=== PATIENT | male | born 1955 | race Caucasian/White ===

== ENCOUNTER 2021-09-29 08:53 | Inpatient (IN) | payer MEDICARE, MEDICAID, SELFPAY ==
[2021-09-29] VITALS (12 sets, daily range): BP systolic 110–161; BP diastolic 81–94; PULSE 74–108; RESP 18–21; TEMP 36.7–37.7; O2SAT 82–97; BMI 31.1
--- NOTE | 2021-09-29 09:44 | ED_ITS ---
HPI - General Adult General: Chief complaint: General Medical Stated complaint: FEVER/WEAK Time Seen by Provider: 09/29/21 09:09 History of Present Illness: HPI narrative: Mr. Mendoza is a 66-year-old gentleman with significant past medical history of kidney transplant approximately 2-1/2 years ago at [facility] who currently follows with nephrology (I believe within a [facility] group) in [place]. He presents to the emergency department due to generalized symptoms. Symptoms began subacutely approximately 3 days ago. He has generalized aches, pains, fatigue, and feeling off balance. He denies falls or head strike. He initially thought that he had Covid and came here for testing of that. He denies cough though and also shortness of breath. Overall the intensity symptoms is moderate to severe. The course has been worsening. He cannot think of any other specific exacerbating relieving factors. He recently missed an appointment on Thursday because he forgot about it with his social work instructor. Review of Systems General: Reports: 10 or more systems reviewed and unremarkable except in HPI and below PFSH ED PFSH: Medical History (Updated 10/03/21 @ 00:00 by ) BPH (benign prostatic hyperplasia) CAD (coronary artery disease) Chronic steroid use COPD (chronic obstructive pulmonary disease) Diabetic neuropathy DM type 2 (diabetes mellitus, type 2) Hepatitis B Immunocompromised Surgical History (Updated 10/03/21 @ 00:00 by ) Stented coronary artery Transplanted kidney Family History Other Diabetes Social History Smoking and tobacco status: former smoker Alcohol intake: never Substance/Drug Use: former Lives independently: Yes Household members: spouse Marital status: Current occupational status: retired Physical Exam Narrative: EXAM NARRATIVE: GENERAL/CONSTITUTIONAL -somewhat ill-appearing. Eyes - PERRL, no conjunctival injection ENMT - Atraumatic external nose and ears. Moist mucous membranes NECK - supple. trachea midline CARDIOVASCULAR - tachycardic rate and regular rhythm. Peripheral pulses 2+ and equal RESPIRATORY -clear to auscultation bilaterally. No retractions or accessory muscle use. ABDOMEN/GI - mild generalized tenderness palpation without focality. No tenderness to percussion or evidence of peritonitis MSK - Extremities without obvious deformity or tenderness to palpation SKIN - Warm, Dry NEURO - alert and appropriately oriented. Moves all extremities equally. PSYCH - Appropriate mood and affect Course ED course: - Patient was seen and evaluated by me at bedside - Patient placed on cardiac monitors, IV access obtained - Initial evaluation notable for somewhat ill appearance, nontoxic. -Symptom treatment ordered though was delayed secondary to difficulty with IV access - Labs notable for leukocytosis. Metabolic panel with likely evidence of dehydration. Urinalysis concerning for urinary tract infection with 4+ bacteria, nitrite positive, and 25-40 WBCs. Antibiotics ordered - Upon serial reexamination after treatment the patient was only minimally improved - Based on patient history, evaluation, labs, and imaging as interpreted the most likely cause of the patient's condition is UTI with SIRS criteria in the context of transplanted kidney and immunosuppression - Per discussion with pharmacy picking tech in the ED patient appears to have challenges taking his medications properly though he does report compliance with his antirejection regimen - The results of ED evaluation were discussed with the patient including plan for admission due to requirement for level of care not available if discharged to prevent significant worsening/deterioration. - Hospitalist service contacted and agreed admit the patient. I ordered CT imaging at the request which was reasonable given that if patient had acute complication requiring surgical intervention he would require transfer. - Patient was admitted without further deterioration or significant events. Vital Signs: Vital signs: Vital Signs Temperature 98 F 10/02/21 13:03 Pulse Rate 78 10/02/21 13:03 Respiratory Rate 16 10/02/21 13:03 Blood Pressure 139/91 10/02/21 13:03 Pulse Oximetry 90 10/02/21 13:03 [facility] - General Adult Medical Records: Attestation: I reviewed the patient's medical records. Lab Data: Labs: Lab Results 09/29/21 09/29/21 09/29/21 10:07 10:07 11:55 WBC 13.9 10^3/uL H 10 ^3/uL (4.0-10.0) RBC 4.98 10^6/uL 10^6 /uL (4.1-5.3) Hgb 12.8 g/dL g/dL (11.7-16.6) Hct 41.9 % L % (42.0-52.0) MCV 84.1 fl fl (80-94) MCH 25.7 pg L pg (28.0-34.0) MCHC 30.5 g/dL g/dL (30.0-36.0) RDW 17.1 % H % (12.1-15.1) Plt Count 199 10^3/cmm 10^3 /cmm (130-400) MPV 11.8 fL H fL (7.4-10.4) Neut % (Auto) 89.4 % % Lymph % (Auto) 3.7 % % Robeson % (Auto) 5.9 % % Eos % (Auto) 0.1 % % Baso % (Auto) 0.3 % % Neut # (Auto) 12.39 10^3/uL H 1 0^3/uL (1.8-7.7) Lymph # (Auto) 0.5 10^3/uL L 10^ 3/uL (0.8-4.8) Robeson # (Auto) 0.8 10^3/uL 10^3/ uL (0.2-0.9) Eos # (Auto) 0.0 10^3/uL 10^3/ uL (0.0-0.8) Baso # (Auto) 0.0 10^3/uL 10^3/ uL (0.0-0.1) Nucleated RBC % (a uto) 0 % % Nucleated RBCs # 0.0 /100WBC /100W BC Sodium Potassium Chloride Carbon Dioxide Anion Gap BUN Creatinine GFR Calculation Glucose Calculated Osmolal ity Lactic Acid Calcium Total Bilirubin AST ALT Alkaline Phosphata se Total Protein Albumin Globulin Urine Color Urine Appearance Urine pH Ur Specific Gravit y Urine Protein Urine Glucose (UA) Urine Ketones Urine Blood Urine Nitrate Urine Bilirubin Urine Urobilinogen Ur Leukocyte Gretel ase Urine RBC Urine WBC Ur Squamous Epith Cells Amorphous Sediment Urine Bacteria Tacrolimus (FK 506 ) Influenza Type A A g Negative (Negative) Influenza Type B A g Negative (Negative) SARS-CoV-2 Ag (Rap id) Negative (Negative) 09/29/21 09/29/21 09/29/21 11:55 11:55 12:20 WBC RBC Hgb Hct MCV MCH MCHC RDW Plt Count MPV Neut % (Auto) Lymph % (Auto) Robeson % (Auto) Eos % (Auto) Baso % (Auto) Neut # (Auto) Lymph # (Auto) Robeson # (Auto) Eos # (Auto) Baso # (Auto) Nucleated RBC % (a uto) Nucleated RBCs # Sodium 132 mmol/L L mmol /L (136-145) Potassium 4.6 mmol/L mmol/L (3.5-5.1) Chloride 99 mmol/L mmol/L (98-107) Carbon Dioxide 21 mmol/L L mmol/ L (22-29) Anion Gap 16.6 (5-19) BUN 22 mg/dL mg/dL (8-23) Creatinine 1.1 mg/dL mg/dL (0.7-1.2) GFR Calculation 67.0 mL/min L mL/ min (90-130) Glucose 181 mg/dL H mg/dL (65-115) Calculated Osmolal ity 282 mOsm/kg L mOs m/kg (285-295) Lactic Acid Calcium 9.1 mg/dL mg/dL (8.5-10.5) Total Bilirubin 0.8 mg/dL mg/dL (0.15-1.2) AST 14 U/L U/L (0-40) ALT 8 U/L U/L (0-41) Alkaline Phosphata se 94 IU/L IU/L (40-130) Total Protein 7.1 g/dL g/dL (6.6-8.7) Albumin 3.7 g/dL g/dL (3.5-5.2) Globulin 3.4 g/dL g/dL (1.3-4.6) Urine Color Yellow (Yellow) Urine Appearance Hazy A (CLEAR) Urine pH 5 (5-7) Ur Specific Gravit y 1.015 (1.005-1.030) Urine Protein 1+ H (Negative) Urine Glucose (UA) Norm (Normal) Urine Ketones Negative (Negative) Urine Blood 2+ H (Negative) Urine Nitrate Positive H (Negative) Urine Bilirubin Neg (Negative) Urine Urobilinogen 1 mg/dL H mg/dL (Negative) Ur Leukocyte Gretel ase Negative (Negative) Urine RBC 5-10 /hpf H /hpf (0-2) Urine WBC 25-40 /hpf H /hpf (0-5) Ur Squamous Epith Cells Rare /hpf /hpf (0-5) Amorphous Sediment Not Reportable Urine Bacteria 4+ /hpf H /hpf (NONE) Tacrolimus (FK 506 ) 6.5 mcg/L mcg/L Influenza Type A A g Influenza Type B A g SARS-CoV-2 Ag (Rap id) 09/29/21 14:11 WBC RBC Hgb Hct MCV MCH MCHC RDW Plt Count MPV Neut % (Auto) Lymph % (Auto) Robeson % (Auto) Eos % (Auto) Baso % (Auto) Neut # (Auto) Lymph # (Auto) Robeson # (Auto) Eos # (Auto) Baso # (Auto) Nucleated RBC % (a uto) Nucleated RBCs # Sodium Potassium Chloride Carbon Dioxide Anion Gap BUN Creatinine GFR Calculation Glucose Calculated Osmolal ity Lactic Acid 1.7 mmol/L mmol/L (0.5-2.2) Calcium Total Bilirubin AST ALT Alkaline Phosphata se Total Protein Albumin Globulin Urine Color Urine Appearance Urine pH Ur Specific Gravit y Urine Protein Urine Glucose (UA) Urine Ketones Urine Blood Urine Nitrate Urine Bilirubin Urine Urobilinogen Ur Leukocyte Gretel ase Urine RBC Urine WBC Ur Squamous Epith Cells Amorphous Sediment Urine Bacteria Tacrolimus (FK 506 ) Influenza Type A A g Influenza Type B A g SARS-CoV-2 Ag (Rap id) Discharge Plan Discharge Patient Disposition: Placed in Observation Admit Provider: Harris Guerra Clinical Impression: Acute UTI, SIRS (systemic inflammatory response syndrome), Immunocompromised, Transplanted kidney Discharge Diet: Cardiac and Diabetic Discharge Activity: Resume usual activity Coding Level of Care Code ED Mica Washer Gluer for Alivia Abbott
[2021-09-29 10:49] LABS: Influenza A by IFA Negative (Negative); Influenza B by IFA Negative (Negative); SARS Covid-2 Antigen Negative (Negative)
--- NOTE | 2021-09-29 11:12 | PC.NURSE ---
REPORT GIVEN TO STEFAN ESTRADA ASSUMED CARE.
--- NOTE | 2021-09-29 12:00 | PC.NURSE ---
received report from SEAN Moreno. Pt needs labs and urine.
[2021-09-29 12:06] LABS: Basophils % 0.3 %; Eosinophils % 0.1 %; Hematocrit 41.9 % (42.0-52.0); Hemoglobin 12.8 g/dL (11.7-16.6); Lymphocytes # 0.5 10^3/uL (0.8-4.8); Lymphocytes % 3.7 %; Mean Corpuscular HGB Conc 30.5 g/dL (30.0-36.0); Mean Corpuscular Hemoglobin 25.7 pg (28.0-34.0); Mean Corpuscular Volume 84.1 fl (80-94); Mean Platelet Volume 11.8 fL (7.4-10.4); Monocytes # 0.8 10^3/uL (0.2-0.9); Monocytes % 5.9 %; Neutrophils # 12.39 10^3/uL (1.8-7.7); Neutrophils % 89.4 %; Nucleated Red Blood Cells % 0 %; Platelet Count 199 10^3/cmm (130-400); Red Blood Count 4.98 10^6/uL (4.1-5.3); Red Cell Distribution Width 17.1 % (12.1-15.1); White Blood Count 13.9 10^3/uL (4.0-10.0)
[2021-09-29 12:23] LABS: Alanine Aminotransferase 8 U/L (0-41); Albumin Level 3.7 g/dL (3.5-5.2); Alkaline Phosphatase 94 IU/L (40-130); Anion Gap 16.6 (5-19); Aspartate Amino Transferase 14 U/L (0-40); Blood Urea Nitrogen 22 mg/dL (8-23); Calcium 9.1 mg/dL (8.5-10.5); Carbon Dioxide 21 mmol/L (22-29); Chloride 99 mmol/L (98-107); Globulin 3.4 g/dL (1.3-4.6); Glucose 181 mg/dL (65-115); Osmolality Calculated 282 mOsm/kg (285-295); Potassium 4.6 mmol/L (3.5-5.1); Sodium 132 mmol/L (136-145); Total Bilirubin 0.8 mg/dL (0.15-1.2); Total Protein 7.1 g/dL (6.6-8.7)
[2021-09-29 12:53] LABS: Add Urine Microscopic? YES; Bilirubin Urine Neg (Negative); Blood Urine 2+ (Negative); Glucose Urine UA Norm (Normal); Ketones Urine Negative (Negative); Leukocyte Esterase Urine Negative (Negative); Nitrate Urine Positive (Negative); Protein Urine 1+ (Negative); Specific Gravity, Urine 1.015 (1.005-1.030); Urine Appearance Hazy (CLEAR); Urine Color Yellow (Yellow); Urobilinogen Urine 1 mg/dL (Negative); pH Urine 5 (5-7)
[2021-09-29 12:55] LABS: Add Urine Culture? Yes; Bacteria Urine 4+ /hpf; Squamous Epithelial Cell Urine RARE /hpf (0-5); WBC Urine 25-40 /hpf (0-5)
--- NOTE | 2021-09-29 13:00 | PC.NURSE ---
Several attempts for IV by this RN x3 RAC, LAC and R sarmad. notified Charge nurse and provider
--- NOTE | 2021-09-29 13:40 | CTR_ITS ---
PROCEDURE INFORMATION: Exam: CT Abdomen And Pelvis Without Contrast Exam date and time: 09/29/2021 1:40 PM Age: 66 years old Clinical indication: Condition or disease; Other: UTI; Prior surgery; Surgery type: Kidney transplant; Additional info: Transplanted kidney, UTI, eval pyelo features as able TECHNIQUE: Imaging protocol: Computed tomography of the abdomen and pelvis without contrast. Radiation optimization: All CT scans at this facility use at least one of these dose optimization techniques: automated exposure control; mA and/or kV adjustment per patient size (includes targeted exams where dose is matched to clinical indication); or iterative reconstruction. COMPARISON: No relevant prior studies available. RADIATION DOSE METRICS: Total DLP (mGy-cm): 1566.51 FINDINGS: Heart: Severe calcified coronary artery disease. Liver: Normal. No mass. Gallbladder and bile ducts: Normal. No calcified stones. No ductal dilation. Pancreas: Normal. No ductal dilation. Spleen: Normal. No splenomegaly. Adrenal glands: Normal. No mass. Kidneys and ureters: Small vessel arterial calcifications in the renal malaika bilaterally which are often associated with chronic renal failure. One or more focal cortical defects in the right kidney, representing sequela from previous infection or infarction. One or more focal cortical defects in the left kidney, representing sequela from previous infection or infarction. Moderate to severe bilateral renal atrophy. Right lower quadrant pelvic transplant kidney with minimal inflammation in the perirenal fat suggesting possible nephritis/pyelonephritis. Stomach and bowel: Moderate descending and/or sigmoid colon diverticulosis without diverticulitis. Appendix: Normal appendix. Intraperitoneal space: Unremarkable. No free air. No significant fluid collection. Vasculature: Calcification of the abdominal aorta and/or iliac arteries consistent with atherosclerotic vessel disease. Lymph nodes: Unremarkable. No enlarged lymph nodes. Urinary bladder: Unremarkable as visualized. Reproductive: Unremarkable as visualized. Bones/joints: Bilateral L5 pars defects. Grade 1 anterior spondylolytic spondylolisthesis of L5 on S1. Soft tissues: Unremarkable. CT/CT kidney stone 03002 IMPRESSION: Right lower quadrant pelvic transplant kidney with minimal inflammation in the perirenal fat suggesting possible nephritis/pyelonephritis.
--- NOTE | 2021-09-29 14:20 | PC.NURSE ---
Pt to CT
[2021-09-29 14:50] LABS: Lactic Sepsis W/Reflex 1.7 mmol/L (0.5-2.2)
[2021-09-29] MEDS: gabapentin 300 mg Capsule 600 MG PO ×2 (15:31→22:09)
[2021-09-29] MEDS: morphine 4 mg/mL SDV 1 mL IVP (15:31)
[2021-09-29] MEDS: ondansetron 2 mg/ML SDV 2 mL 4 MG IVP (15:31)
[2021-09-29] MEDS: cefTRIAXone 1,000 MG in sodium chloride 0.9% (plus) 50 ML 100 MG IV (15:32)
[2021-09-29] MEDS: sodium chloride 0.9% 1,000 ML 999 ML IV ×2 (15:33)
--- NOTE | 2021-09-29 15:56 | P.HP_ITS ---
Providers/Chief Complaint Primary Care Provider: Eliazar Owen DO Chief Complaint: FEVER/WEAK History of Present Illness Pleasant 66-year-old gentleman with history of ESRD, kidney transplant 2-1/2 years ago, following with transplant team at [facility] in [place], CAD status post 3 stents, COPD, DM 2, with peripheral neuropathy, hepatitis B, questionable history of hepatitis C, could not be confirmed on subsequent testing, BPH pre sents due to 3 days of malaise, generalized weakness, poor appetite, mid back pain. Previously some headache, not currently, no nausea vomiting or diarrhea. No cough or shortness of breath. In ER with leukocytosis 13.9, sinus tachycardia 90-108. UA with 5-10 RBC, 25-40 WBC, 4+ bacteria, positive nitrate. Renal protocol CT with right lower quadrant pelvic transplant kidney with minimal inflammation in perirenal fat suggestive of possible nephritis/pyelonephritis. Review of Systems Const: Reports: change in appetite and malaise; Denies: fever(s) or chills Eyes: Denies: change in vision or eye redness ENMT: Denies: throat pain, oral sores or ear or mastoid pain Card: Denies: chest pain, edema, pre-syncope or dyspnea on exertion Resp: Denies: dyspnea, productive cough, change in phlegm color or hemoptysis GI: Denies: abdominal pain, nausea, vomiting, diarrhea, constipation, hematoc hezia or melena : Denies: flank pain, difficulty urinating, urinary frequency or hematuria Musc: Denies: back pain, joint swelling or joint redness Skin/Breast: Denies: rash, sores or new lesions Neuro: Denies: headache(s), numbness in extremities, weakness in extremities, dizziness, confusion or seizure-like activity Endo: Denies: polyuria or polydipsia Magen/Lymph: Denies: easy bleeding or purpura All/Imm: Denies: urticaria, throat swelling or tongue swelling Medications/Allergies Home Medications Medication Instructions Recorded Confirmed Last Taken Type allopurinol 200 mg PO DAILY 09/29/21 09/29/21 09/29/21 History amlodipine 5 mg PO DAILY 09/29/21 09/29/21 09/29/21 History aspirin 81 mg PO DAILY 09/29/21 09/29/21 09/29/21 History atorvastatin 80 mg PO DAILY 09/29/21 09/29/21 09/29/21 History entecavir 0.5 mg PO DAILY MDD SEE PHARMACY 09/29/21 09/29/21 09/28/21 History COMMENT gabapentin 600 mg PO TID 09/29/21 09/29/21 09/29/21 History hydrocodone-acetaminophen 1 tab PO Q6H PRN 09/29/21 09/29/21 09/29/21 History insulin aspart U-100 [Novolog 18 unit SUBCUT .PER SLIDING SCALE 09/29/21 09/29/21 Unknown History Flexpen U-100 Insulin] insulin detemir U-100 [Levemir 32 unit SUBCUT BID 09/29/21 09/29/21 09/29/21 History FlexTouch U-100 Insuln] isosorbide mononitrate 60 mg PO DAILY 09/29/21 09/29/21 09/29/21 History lisinopril 5 mg PO DAILY 09/29/21 09/29/21 09/29/21 History magnesium oxide 400 mg PO BID 09/29/21 09/29/21 Unknown History metoprolol succinate 50 mg PO DAILY 09/29/21 09/29/21 09/29/21 History nitroglycerin 0.4 mg SUBLINGUAL Q5MIN PRN 09/29/21 09/29/21 Unknown History omeprazole 20 mg PO DAILY 09/29/21 09/29/21 09/29/21 History prednisone 5 mg PO DAILY 09/29/21 09/29/21 09/29/21 History tacrolimus 1 mg PO BID 09/29/21 09/29/21 09/29/21 History tamsulosin 0.4 mg PO DAILY 09/29/21 09/29/21 09/27/21 History Allergies Allergy/AdvReac Type Severity Reaction Status Date / Time cyclobenzaprine Allergy Unknown Unknown Verified 09/29/21 11:23 PFSH Acute PFSH: Medical History (Updated 09/29/21 @ 16:04 by Harris Guerra MD) BPH (benign prostatic hyperplasia) CAD (coronary artery disease) Chronic steroid use COPD (chronic obstructive pulmonary disease) Diabetic neuropathy DM type 2 (diabetes mellitus, type 2) Hepatitis B Immunocompromised Surgical History Stented coronary artery Transplanted kidney Family History Other Diabetes Social History Smoking and tobacco status: former smoker Alcohol intake: never Substance/Drug Use: former Lives independently: Yes Household members: spouse Marital status: Current occupational status: retired Vitals/I&O/Wt Last Vital Signs Temp 98.1 F 09/29/21 09:08 Pulse 89 09/29/21 15:00 Resp 18 09/29/21 15:31 BP 110/88 09/29/21 14:00 Pulse Ox 96 09/29/21 15:00 Weight last 48 hrs Weight 92.986 kg Physical Exam Const: COMMON NORMALS: no acute distress, patient oriented x3 and alert GENERAL APPEARANCE: cooperative and ill appearing ORIENTATION/CONSCIOUSNESS: Yes awake HENMT: COMMON NORMALS: oropharynx normal Neck/C-Spine: COMMON NORMALS: no JVD Resp: COMMON NORMALS: normal respiratory effort and clear to auscultation bilaterally AUSCULTATION: clear to auscultation bilaterally Cardio: COMMON NORMALS: no JVD, regular rhythm, S1 normal heart sound present, S2 normal heart sound present and No murmurs present (Cardio) RHYTHM: regular rhythm HEART SOUNDS: S1 normal heart sound present and S2 normal heart sound present GI: COMMON NORMALS: Normal to inspection, nondistended, normoactive bowel sounds present, Soft to palpation and non-tender PALPATION: Yes Soft to palpation Extremity: COMMON NORMALS: no joint enlargement and no pedal edema Neuro: COMMON NORMALS: patient oriented x3 and moves all extremities Skin: COMMON NORMALS: no rashes or lesions noted GENERAL SKIN EXAM: no rashes or lesions noted Data : 09/29/21 11:55 09/29/21 11:55 Micro: Microbiology 09/29/21 11:50 Blood Culture - Preliminary Blood SPECIMEN COLLECTED 09/29/21 11:55 Blood Culture - Preliminary Blood SPECIMEN COLLECTED A&P Assessment and plan (1) Complicated UTI (urinary tract infection): Complicated urine tract infection, pyelonephritis, nonobstructive based on CT. Follow-up urine culture. Continue to biotic. Status: Acute (2) Sepsis: With leukocytosis 13.9, sinus tachycardia 90-108. Source is urinary tract infection. Blood cultures collected. Lactic acid is normal. As above. Status: Acute (3) Transplanted kidney: Continue tacrolimus, prednisone. Continue follow-up at [facility]. Status: Acute (4) Immunocompromised: Status: Acute (5) Chronic steroid use: Prednisone 5. Increase to 10 for now. Status: Acute Attestations Medical Necessity Statement*: Admission of over 2 midnights is anticipated in a gentleman with complicated urinary tract infection, pyelonephritis, sepsis, with transplanted kidney, immunocompromise. Coding Level of Care Code Acute Wave Solder Offbearer for g Fwd Exam Comprehensive Diagnoses Complicated UTI (urinary tract infection) N39.0 Sepsis A41.9 Transplanted kidney Z94.0 Immunocompromised D84.9 Chronic steroid use
[2021-09-29 21:12] LABS: Glucose Point of Care 152 mg/dL (70-110)
[2021-09-29] MEDS: heparin 5,000 unit/mL INJ 1 mL 5000 UNIT SUBCUT (22:07)
[2021-09-29] MEDS: tacrolimus 0.5 mg Capsule 1 MG PO (22:08)
[2021-09-29] MEDS: HYDROcodone-acetaminophen 5-325 mg Tablet 1 TAB PO (22:09)
[2021-09-29 22:33] LABS: Glucose Point of Care 202 mg/dL (70-110)
[2021-09-30] VITALS (8 sets, daily range): BP systolic 95–145; BP diastolic 67–88; PULSE 77–96; RESP 16–18; TEMP 36.7–38.8; O2SAT 90–98
[2021-09-30] MEDS: heparin 5,000 unit/mL INJ 1 mL 5000 UNIT SUBCUT ×3 (03:21→20:43)
[2021-09-30] MEDS: cefTRIAXone 1,000 MG in sodium chloride 0.9% (plus) 50 ML 100 MG IV (03:22)
[2021-09-30] MEDS: acetaminophen 325 mg Tablet 650 MG PO (05:04)
[2021-09-30 05:45] LABS: Basophils % 0.5 %; Eosinophils % 0.4 %; Hematocrit 40.3 % (42.0-52.0); Hemoglobin 12.5 g/dL (11.7-16.6); Lymphocytes # 0.5 10^3/uL (0.8-4.8); Lymphocytes % 6.3 %; Mean Corpuscular Hemoglobin 26.4 pg (28.0-34.0); Mean Platelet Volume 12.4 fL (7.4-10.4); Monocytes # 0.9 10^3/uL (0.2-0.9); Monocytes % 12.2 %; Neutrophils # 5.99 10^3/uL (1.8-7.7); Neutrophils % 79.3 %; Nucleated Red Blood Cells % 0 %; Platelet Count 177 10^3/cmm (130-400); Red Blood Count 4.74 10^6/uL (4.1-5.3); Red Cell Distribution Width 17.2 % (12.1-15.1); White Blood Count 7.6 10^3/uL (4.0-10.0)
--- NOTE | 2021-09-30 05:56 | PC.NURSE ---
Patient alert and oriented times 3, resting comfortably in bed. Patient became hypoxic with oxygen saturation of 82% on room air. Placed patient on nasal cannula. Oxygen saturation 93% on 6 liters. Patient had ever of 101.9. Tylenol given and last temperature was 99.5
[2021-09-30 06:03] LABS: Alanine Aminotransferase 12 U/L (0-41); Albumin Level 3.2 g/dL (3.5-5.2); Alkaline Phosphatase 106 IU/L (40-130); Anion Gap 14.6 (5-19); Aspartate Amino Transferase 16 U/L (0-40); Blood Urea Nitrogen 19 mg/dL (8-23); Carbon Dioxide 22 mmol/L (22-29); Chloride 102 mmol/L (98-107); Globulin 3.8 g/dL (1.3-4.6); Glucose 126 mg/dL (65-115); Osmolality Calculated 282 mOsm/kg (285-295); Potassium 4.6 mmol/L (3.5-5.1); Sodium 134 mmol/L (136-145); Total Bilirubin 0.5 mg/dL (0.15-1.2)
[2021-09-30 06:39] LABS: Glucose Point of Care 124 mg/dL (70-110)
--- NOTE | 2021-09-30 06:39 | PC.NURSE ---
Updated patient's on patient condition. All questions answered.
[2021-09-30 08:41] LABS: Procalcitonin 0.45 ng/mL (0-0.5)
[2021-09-30] MEDS: allopurinol 100 mg Tablet 200 MG PO (08:45)
[2021-09-30] MEDS: atorvastatin 40 mg Tablet 80 MG PO (08:45)
[2021-09-30] MEDS: tacrolimus 0.5 mg Capsule 1 MG PO ×2 (08:45→17:37)
[2021-09-30] MEDS: gabapentin 300 mg Capsule 600 MG PO ×3 (08:45→20:43)
[2021-09-30] MEDS: isosorbide mononitrate ER 60 mg Tablet 30 MG PO (08:46)
[2021-09-30] MEDS: tamsulosin 0.4 mg Capsule PO (08:46)
[2021-09-30] MEDS: pantoprazole DR 40 mg Tablet PO (08:46)
[2021-09-30] MEDS: predniSONE 5 mg Tablet 10 MG PO (08:46)
[2021-09-30] MEDS: aspirin 81 mg Chew Tablet PO (08:46)
[2021-09-30] MEDS: metoprolol succinate ER (24 HR) 50 mg Tablet 25 MG PO (08:46)
[2021-09-30] MEDS: vancomycin 1,500 MG/300 ML PIGGYBACK 200 MG IV (08:51)
--- NOTE | 2021-09-30 09:58 | PC.CHAP ---
Pastoral Care Encounter/Spiritual Assessment Type of Contact [] Declined off track betting manager visit [] Patient/Family/Request visit [] Outpatient visit [] Follow-up visit [] Physician referral [] Code/Alert [x] Routine visit [] Staff referral [] Actively dying [] Patient sleeping [] Family support [] [] Out of room [] Palliative care [] [] Receiving care in room [] Pre-surgical visit [] Trauma [] Long length of stay [] ICU visit [] Other: Relational/Emotional Strength [x] Patient feels connected with others/family/visitors/staff [] Distress [] Loneliness/isolation [] Abandonment Spirituality of Patient [x] Person of Lauryn [x] Attends Advent of their Lauryn [] Believes in Prayer [] Reads Bible or Religion materials [] There are Spiritual issues to be addressed Pace Analyst Interventions [x] Prayer x[x] Active listening [x] Non-anxious presence [] Spiritual/emotional support [] Crisis/trauma care [] Spiritual counseling [] Bereavement support [] Provided bereavement packet [] Provided Bible/devotional materials [] Provided toy/stuffed animal, coloring book to patient or family member [] Provided Communion [] Anointing/[place] [] Salvation [x] Completed spiritual assessment [] Other: Impact on Illness or Injury [] Angry [] Fearful [] Anxious [] Often cries [] Exhaustion [] Unable to work [] Unable to attend yarsanism [] Unable to walk/stand [] Unable to read [] Unable to drive [] Unable to eat/drink [] Unable to sleep [] Unable to be with family [] Patient intubated [] Other: Summary Time spent with patient 10 min
[2021-09-30 11:40] LABS: Glucose Point of Care 153 mg/dL (70-110)
[2021-09-30] MEDS: piperacillin-tazobactam 3.375 GM in sodium chloride 0.9% (plus) 50 ML IV ×2 (11:59→18:41)
[2021-09-30] MEDS: insulin lispro 100 unit/1 mL SUBCUT ×3 (12:00→22:57)
--- NOTE | 2021-09-30 16:54 | PM.PN ---
Subjective Subjective: Interval history: Hospital course, labs appreciated. Examination patient lying comfortably in bed. Sleeping. Wakes up to physical stimulus. AOx3. Denies any nausea vomiting, headache. T-max overnight 1.9 Fahrenheit. Has remained hemodynamically stable. States his urine output has been declining over last 1 week. We discussed for possible transfer given history of renal transplant and pyelonephritis to the transplanted kidney. Patient verbalized understanding and is agreeable to transfer. Multiple facilities called including [facility], [facility], [facility], [facility], [facility]. All the facilities currently on divert. Vitals/I&O/Wt Last Vital Signs Temp 98.8 F 09/30/21 11:37 Pulse 79 09/30/21 11:37 Resp 18 09/30/21 11:37 BP 137/83 09/30/21 11:37 Pulse Ox 97 09/30/21 11:37 09/30/21 09/30/21 09/30/21 06:59 14:59 22:59 Intake Total 530 / 2580 1260 / 1260 50 / 1310 Output Total 250 / 250 Balance 280 / 2330 1260 / 1260 50 / 1310 Weight last 48 hrs Weight 92.986 kg Physical Exam Const: COMMON NORMALS: no acute distress, patient oriented x3 and alert GENERAL APPEARANCE: cooperative and ill appearing ORIENTATION/CONSCIOUSNESS: Yes awake HENMT: COMMON NORMALS: oropharynx normal Neck/C-Spine: COMMON NORMALS: no JVD Resp: COMMON NORMALS: normal respiratory effort and clear to auscultation bilaterally AUSCULTATION: clear to auscultation bilaterally Cardio: COMMON NORMALS: no JVD, regular rhythm, S1 normal heart sound present, S2 normal heart sound present and No murmurs present (Cardio) RHYTHM: regular rhythm HEART SOUNDS: S1 normal heart sound present and S2 normal heart sound present GI: COMMON NORMALS: Normal to inspection, nondistended, normoactive bowel sounds present, Soft to palpation and non-tender PALPATION: Yes Soft to palpation Extremity: COMMON NORMALS: no joint enlargement and no pedal edema Neuro: COMMON NORMALS: patient oriented x3 and moves all extremities SENSORIUM/ORIENTATION: Yes alert Skin: COMMON NORMALS: no rashes or lesions noted GENERAL SKIN EXAM: no rashes or lesions noted Data : 09/30/21 05:10 09/30/21 05:10 Micro: Microbiology 09/29/21 11:55 Blood Culture - Preliminary Blood 09/29/21 11:50 Blood Culture - Preliminary Blood NEGATIVE TO DATE 09/29/21 12:20 Urine Culture - Preliminary Urine,Clean Catch Gram Negative Rods A&P Assessment and plan (1) Complicated UTI (urinary tract infection): Complicated UTI/pyelonephritis in setting of kidney transplant. Pyonephritis of transplanted kidney. Switch antibiotics to vancomycin and Zosyn given immunocompromise status. Follow-up blood cultures. Follow-up urine culture will change antibiotics as per culture results. Status: Acute (2) Sepsis: With leukocytosis 13.9, sinus tachycardia 90-108. Source is urinary tract infection. Check procalcitonin. Status: Acute (3) Transplanted kidney: Continue tacrolimus, prednisone. Continue follow-up at [facility]. Monitor kidney functions, strict input output charting. Avoid Askew catheterization. Status: Acute (4) Immunocompromised: Status: Acute (5) Chronic steroid use: Continue home dose of prednisone 5 mg daily. Status: Acute Additional A&P Information Hypertension: Goal blood pressure 140/90 mmHg. Continue with home dose of antihypertensives . Given history of kidney transplant pyelonephritis of transplanted kidney with declining urine output over last 1 week patient is at high risk of transplant failure. Discussed the same with patient and he is agreeable for transfer to a higher center. Unfortunately no beds available. For now continue the same treatment. Tried calling patient's on phone number available in the chart. Left voice message. Full code. Protonix for PUD prophylaxis. Heparin for DVT prophylaxis. Attestations Medical Necessity Statement*: Requires further hospitalization for management of complicated UTI/pyelonephritis of transplanted kidney in setting of post renal transplant, chronic immunocompromised patient Time Spent in Patient Care: Greater than 35 minutes (>than 50% of time spent in counselling and/or direct pt care on unit). Coding Level of Care Code Acute Manager Heart Failure for Gaving Fwd Diagnoses Complicated UTI (urinary tract infection) N39.0 Sepsis A41.9 Transplanted kidney Z94.0 Immunocompromised D84.9 Chronic steroid use
[2021-09-30] MEDS: HYDROcodone-acetaminophen 5-325 mg Tablet 1 TAB PO (17:37)
[2021-09-30 21:01] LABS: Glucose Point of Care 182 mg/dL (70-110)
[2021-09-30 21:10] LABS: Glucose Point of Care 141 mg/dL (70-110)
[2021-09-30 21:14] LABS: Glucose Point of Care 132 mg/dL (70-110)
[2021-09-30 21:14] LABS: Glucose Point of Care 189 mg/dL (70-110)
[2021-10-01] VITALS: BP 110/74; PULSE 84; RESP 17; TEMP 36.8; O2SAT 92
[2021-10-01] MEDS: vancomycin 1,500 MG/300 ML PIGGYBACK 200 MG IV (02:42)
[2021-10-01 04:00] VITALS: BP 100/72; PULSE 78; RESP 17; TEMP 36.7; O2SAT 92
[2021-10-01] MEDS: piperacillin-tazobactam 3.375 GM in sodium chloride 0.9% (plus) 50 ML IV ×3 (04:23→19:56)
[2021-10-01] MEDS: heparin 5,000 unit/mL INJ 1 mL 5000 UNIT SUBCUT ×3 (04:23→19:57)
[2021-10-01 06:56] LABS: Glucose Point of Care 126 mg/dL (70-110)
[2021-10-01 07:03] LABS: Basophils % 0.7 %; Eosinophils # 0.1 10^3/uL (0.0-0.8); Eosinophils % 1.6 %; Hematocrit 41.3 % (42.0-52.0); Hemoglobin 12.6 g/dL (11.7-16.6); Lymphocytes # 0.6 10^3/uL (0.8-4.8); Lymphocytes % 10.2 %; Mean Corpuscular HGB Conc 30.5 g/dL (30.0-36.0); Mean Corpuscular Hemoglobin 25.8 pg (28.0-34.0); Mean Corpuscular Volume 84.6 fl (80-94); Monocytes # 0.9 10^3/uL (0.2-0.9); Monocytes % 16.4 %; Neutrophils # 3.89 10^3/uL (1.8-7.7); Neutrophils % 69.3 %; Nucleated Red Blood Cells % 0 %; Platelet Count 197 10^3/cmm (130-400); Red Blood Count 4.88 10^6/uL (4.1-5.3); Red Cell Distribution Width 17.2 % (12.1-15.1); White Blood Count 5.6 10^3/uL (4.0-10.0)
[2021-10-01 07:39] VITALS: BP 148/79; PULSE 74; RESP 18; TEMP 36.9; O2SAT 97
[2021-10-01] MEDS: tamsulosin 0.4 mg Capsule PO (08:12)
[2021-10-01] MEDS: allopurinol 100 mg Tablet 200 MG PO (08:12)
[2021-10-01] MEDS: metoprolol succinate ER (24 HR) 50 mg Tablet 25 MG PO (08:12)
[2021-10-01] MEDS: gabapentin 300 mg Capsule 600 MG PO ×3 (08:12→19:57)
[2021-10-01] MEDS: predniSONE 5 mg Tablet PO (08:12)
[2021-10-01] MEDS: isosorbide mononitrate ER 60 mg Tablet 30 MG PO (08:12)
[2021-10-01] MEDS: aspirin 81 mg Chew Tablet PO (08:13)
[2021-10-01] MEDS: pantoprazole DR 40 mg Tablet PO (08:13)
[2021-10-01] MEDS: atorvastatin 40 mg Tablet 80 MG PO (08:14)
[2021-10-01] MEDS: tacrolimus 0.5 mg Capsule 1 MG PO ×2 (08:16→17:11)
[2021-10-01 10:21] LABS: Alanine Aminotransferase 22 U/L (0-41); Albumin Level 3.3 g/dL (3.5-5.2); Alkaline Phosphatase 82 IU/L (40-130); Anion Gap 18.2 (5-19); Aspartate Amino Transferase 24 U/L (0-40); Blood Urea Nitrogen 22 mg/dL (8-23); Calcium 9.4 mg/dL (8.5-10.5); Carbon Dioxide 18 mmol/L (22-29); Chloride 106 mmol/L (98-107); Globulin 3.1 g/dL (1.3-4.6); Glucose 201 mg/dL (65-115); Osmolality Calculated 295 mOsm/kg (285-295); Potassium 4.2 mmol/L (3.5-5.1); Sodium 138 mmol/L (136-145); Total Bilirubin 0.3 mg/dL (0.15-1.2); Total Protein 6.4 g/dL (6.6-8.7)
[2021-10-01] MEDS: HYDROcodone-acetaminophen 5-325 mg Tablet 1 TAB PO ×2 (10:35→17:11)
[2021-10-01 10:37] VITALS: BP 143/78; PULSE 55; RESP 18; TEMP 36.9; O2SAT 90
[2021-10-01 12:11] LABS: Glucose Point of Care 209 mg/dL (70-110)
[2021-10-01] MEDS: insulin lispro 100 unit/1 mL SUBCUT (12:57)
--- NOTE | 2021-10-01 14:17 | P.CONIM_ITS ---
Providers/Reason For Consult Consulting Physician/Specialty*: nasir plaza md / telenephrology Reason for Consult*: renal transplant UTI Attending Physician: Taj Dave MD Primary Care Provider: Eliazar Owen DO History of Present Illness History of Present Illness Desmond Mendoza is a 66 year old male with history of ESRD - was on PD for 4.5 yrs. He is s/p donor kidney transplant 2-1/2 years ago, following with transplant team at [facility] in [place]- on tacrolimus and prednisone. normal renal fxn. Also h/o CAD status post 3 stents, COPD, DM 2, with peripheral neuropathy, hepatitis B, questionable history of hepatitis C, BPH. Pt was admitted on 09/29/21 w/ 3 days of malaise, generalized weakness, poor appetite, mid back pain, and dysuria. Pt was diagnosed w/ a renal transplant UTI w/ e coli. Renal protocol CT with right lower quadrant pelvic transplant kidney with minimal inflammation in perirenal fat suggestive of possible nephritis/pyelonephritis. pt is on zosyn. he feels better, WBC improvinf, renal called to consult for management of renal transplant in setting of UTI. Review of Systems General: Reports: 10 or more systems reviewed and unremarkable except in HPI and below Narrative: feels better. dec fevers. no further chills. improved appetite. no visual changes, no cp, no strong, no n/v/d//leg pain. + urinary frequency. rest of ROS x 10 is neg Meds/Allergies Home Medications and Allergies Home Medications Medication Instructions Recorded Confirmed Last Taken Type allopurinol 200 mg PO DAILY 09/29/21 09/29/21 09/29/21 History amlodipine 5 mg PO DAILY 09/29/21 09/29/21 09/29/21 History aspirin 81 mg PO DAILY 09/29/21 09/29/21 09/29/21 History atorvastatin 80 mg PO DAILY 09/29/21 09/29/21 09/29/21 History entecavir 0.5 mg PO DAILY MDD SEE PHARMACY 09/29/21 09/29/21 09/28/21 History COMMENT gabapentin 600 mg PO TID 09/29/21 09/29/21 09/29/21 History hydrocodone-acetaminophen 1 tab PO Q6H PRN 09/29/21 09/29/21 09/29/21 History insulin aspart U-100 [Novolog 18 unit SUBCUT .PER SLIDING SCALE 09/29/21 09/29/21 Unknown History Flexpen U-100 Insulin] insulin detemir U-100 [Levemir 32 unit SUBCUT BID 09/29/21 09/29/21 09/29/21 History FlexTouch U-100 Insuln] isosorbide mononitrate 60 mg PO DAILY 09/29/21 09/29/21 09/29/21 History lisinopril 5 mg PO DAILY 09/29/21 09/29/21 09/29/21 History magnesium oxide 400 mg PO BID 09/29/21 09/29/21 Unknown History metoprolol succinate 50 mg PO DAILY 09/29/21 09/29/21 09/29/21 History nitroglycerin 0.4 mg SUBLINGUAL Q5MIN PRN 09/29/21 09/29/21 Unknown History omeprazole 20 mg PO DAILY 09/29/21 09/29/21 09/29/21 History prednisone 5 mg PO DAILY 09/29/21 09/29/21 09/29/21 History tacrolimus 1 mg PO BID 09/29/21 09/29/21 09/29/21 History tamsulosin 0.4 mg PO DAILY 09/29/21 09/29/21 09/27/21 History Allergies Allergy/AdvReac Type Severity Reaction Status Date / Time cyclobenzaprine Allergy Unknown Unknown Verified 09/29/21 11:23 Current Medications Current Medications Generic Name Dose Route Start Last Admin Trade Name Freq PRN Reason Stop Dose Admin Acetaminophen 650 mg 09/29/21 20:48 09/30/21 05:04 Acetaminophen 325 Mg Tablet PO 650 mg Q6H PRN Administration Mild/Mod Pain Or Temp >/= 101 Hydrocodone Bitart/Acetaminophen 1 tab 09/29/21 20:48 10/01/21 10:35 Hydrocodone-Acetaminophen 5-325 Mg Tablet PO 1 tab Q6H PRN Administration Pain Allopurinol 200 mg 09/30/21 09:00 10/01/21 08:12 Allopurinol 100 Mg Tablet PO 200 mg DAILY RICHARD Administration Aspirin 81 mg 09/30/21 09:00 10/01/21 08:13 Aspirin 81 Mg Chew Tablet PO 81 mg DAILY RICHARD Administration Atorvastatin Calcium 80 mg 09/30/21 09:00 10/01/21 08:14 Atorvastatin 40 Mg Tablet PO 80 mg DAILY RICHARD Administration Gabapentin 600 mg 09/29/21 21:00 10/01/21 08:12 Gabapentin 300 Mg Capsule PO 600 mg TID RICHARD Administration Heparin Sodium (Porcine) 5,000 unit 09/29/21 20:48 10/01/21 12:57 Heparin 5,000 Unit/Ml Inj 1 Ml SUBCUT 5,000 unit Q8H RICHARD Administration Piperacillin Sod/Tazobactam 50 mls @ 12.5 mls/hr 09/30/21 09:00 10/01/21 12:57 Sod 3.375 gm/ Sodium Chloride IV 12.5 mls/hr Q8H RICHARD Administration Protocol Insulin Human Lispro 0 unit 09/30/21 08:00 10/01/21 12:57 Insulin Lispro 100 Unit/1 Ml SUBCUT 8 unit WM&BEDTIME RICHARD Administration Protocol Isosorbide Mononitrate 30 mg 09/30/21 09:00 10/01/21 08:12 Isosorbide Mononitrate Er 60 Mg Tablet PO 30 mg DAILY RICHARD Administration Metoprolol Succinate 25 mg 09/30/21 09:00 10/01/21 08:12 Metoprolol Succinate Er (24 Hr) 50 Mg Tablet PO 25 mg DAILY RICHARD Administration Non-Formulary Medication 0.5 mg 09/30/21 09:00 10/01/21 08:14 Entecavir PO Not Given DAILY RICHARD Pantoprazole Sodium 40 mg 09/30/21 09:00 10/01/21 08:[address] 40 Mg Tablet PO 40 mg DAILY RICHARD Administration Prednisone 5 mg 10/01/21 09:00 10/01/21 08:12 Prednisone 5 Mg Tablet PO 5 mg DAILY RICHARD Administration Tacrolimus 1 mg 09/29/21 20:48 10/01/21 08:16 Tacrolimus 0.5 Mg Capsule PO 1 mg BID RICHARD Administration Tamsulosin HCl 0.4 mg 09/30/21 09:00 10/01/21 08:12 Tamsulosin 0.4 Mg Capsule PO 0.4 mg DAILY RICHARD Administration PFSH Acute PFSH: Medical History (Updated 09/29/21 @ 16:04 by Harris Guerra MD) BPH (benign prostatic hyperplasia) CAD (coronary artery disease) Chronic steroid use COPD (chronic obstructive pulmonary disease) Diabetic neuropathy DM type 2 (diabetes mellitus, type 2) Hepatitis B Immunocompromised Surgical History Stented coronary artery Transplanted kidney Family History Other Diabetes Social History Smoking and tobacco status: former smoker Alcohol intake: never Substance/Drug Use: former Lives independently: Yes Household members: spouse Marital status: Current occupational status: retired Vitals/I&O/Wt Last Vital Signs Temp 98.4 F 10/01/21 10:37 Pulse 55 L 10/01/21 10:37 Resp 18 10/01/21 10:37 BP 143/78 10/01/21 10:37 Pulse Ox 90 10/01/21 10:37 09/30/21 10/01/21 10/01/21 22:59 06:59 14:59 Intake Total 820 / 2080 540 / 2620 520 / 520 Output Total 200 / 200 Balance 820 / 2080 340 / 2420 520 / 520 Physical Exam Narrative: EXAM NARRATIVE: obese, NARD vs noted heent- nc/at, eomi, anicteric neck supple lungs clear b/l heart reg, no rub abd soft, nt, nd, +BS ext min edema neuro- a,a, o x 3 peripheral neuropathy Data Micro: Micro: Microbiology 10/01/21 13:57 Blood Culture - Pr eliminary Blood SPECIMEN [facility] 10/01/21 13:52 Blood Culture - Pr eliminary Blood SPECIMEN [facility] 09/29/21 11:55 Blood Culture - Pr eliminary Blood Bacillus sp not b. anthracis 09/29/21 12:20 Urine Culture - Fi nal Urine,Clean Catch Escherichia col i 09/29/21 11:50 Blood Culture - Pr eliminary Blood NEGATIVE TO DONTRELL E A&P Additional A&P Information 66 yr old man 1. renal tx e coli uti- on iv abx- agree can change to po in am- cont cipro -ct scan- Right lower quadrant pelvic transplant kidney with minimal inflammation in the perirenal fat suggesting possible nephritis/pyelonephritis. 10/22 blood cx + for bacillus- likely a contaminant 2. renal tx- cr well controlled- check tacrolimus trough- cont 1 mgm po bid for now -cont pred 5 mgm po dialy 3. htn - well controlled 4. 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 Evans Consult Attestations Medical Necessity Statement: per medicine Time Spent in Patient Care: Greater than 35 minutes (>than 50% of time spent in counselling and/or direct pt care on unit) . Coding Level of Care Code Acute Environmental Issues Instructor for Alivia Abbott
--- NOTE | 2021-10-01 15:29 | P.PN_ITS ---
Subjective Subjective: Interval history: No current overnight. Has remained hemodynamically stable. Afebrile. States doing better. States urine output is improving. Denies any nausea vomiting, headache. Vitals/I&O/Wt Last Vital Signs Temp 98.4 F 10/01/21 10:37 Pulse 55 L 10/01/21 10:37 Resp 18 10/01/21 10:37 BP 143/78 10/01/21 10:37 Pulse Ox 90 10/01/21 10:37 10/01/21 10/01/21 10/01/21 06:59 14:59 22:59 Intake Total 540 / 2620 520 / 520 Output Total 200 / 200 Balance 340 / 2420 520 / 520 Physical Exam Const: COMMON NORMALS: no acute distress, patient oriented x3 and alert GENERAL APPEARANCE: cooperative and ill appearing ORIENTATION/CONSCIOUSNESS: Yes awake HENMT: COMMON NORMALS: oropharynx normal Neck/C-Spine: COMMON NORMALS: no JVD Resp: COMMON NORMALS: normal respiratory effort and clear to auscultation bilaterally AUSCULTATION: clear to auscultation bilaterally Cardio: COMMON NORMALS: no JVD, regular rhythm, S1 normal heart sound present, S2 normal heart sound present and No murmurs present (Cardio) RHYTHM: regular rhythm HEART SOUNDS: S1 normal heart sound present and S2 normal heart sound present GI: COMMON NORMALS: Normal to inspection, nondistended, normoactive bowel sounds present, Soft to palpation and non-tender PALPATION: Yes Soft to palpation Extremity: COMMON NORMALS: no joint enlargement and no pedal edema Neuro: COMMON NORMALS: patient oriented x3 and moves all extremities SENSORIUM/ORIENTATION: Yes alert Skin: COMMON NORMALS: no rashes or lesions noted GENERAL SKIN EXAM: no rashes or lesions noted Data : 10/01/21 05:18 10/01/21 09:37 Micro: Microbiology 10/01/21 13:57 Blood Culture - Preliminary Blood SPECIMEN COLLECTED 10/01/21 13:52 Blood Culture - Preliminary Blood SPECIMEN COLLECTED 09/29/21 11:55 Blood Culture - Preliminary Blood Bacillus sp not b. anthracis 09/29/21 12:20 Urine Culture - Final Urine,Clean Catch Escherichia coli 09/29/21 11:50 Blood Culture - Preliminary Blood NEGATIVE TO DATE A&P Assessment and plan (1) Complicated UTI (urinary tract infection): Complicated UTI/pyelonephritis in setting of kidney transplant. Pyonephritis of transplanted kidney. Urine cultures consistent with E. coli. Stop vancomycin. Continue with Zosyn for 1 more day. Blood cultures 1 out of 4 bottles from day 1+ for bacillus. Most likely contaminant. Given immunocompromise status will repeat blood culture. Status: Acute (2) Sepsis: Resolved Status: Acute (3) Transplanted kidney: Continue tacrolimus, prednisone. Continue follow[facility]up at [facility]. Monitor kidney functions, strict input output charting. Avoid Askew catheterization. Mild acidosis on BMP today. Will consult nephrology given history of renal transplant and declining urine output with pyelonephritis of transplanted padminin lori. Status: Acute (4) Immunocompromised: Status: Acute (5) Chronic steroid use: Continue home dose of prednisone 5 mg daily. Status: Acute Additional A&P Information Hypertension: Goal blood pressure 140/90 mmHg. Continue with home dose of antihypertensives . Given history of kidney transplant pyelonephritis of transplanted kidney with declining urine output over last 1 week patient is at high risk of transplant failure. Discussed the same with patient and he is agreeable for transfer to a higher center. Unfortunately no beds available. For now continue the same treatment. Tried calling patient's on phone number available in the chart. Left voice message. Full code. Protonix for PUD prophylaxis. Heparin for DVT prophylaxis. Discharge planning: If patient continues to do well can plan to discharge tomorrow on oral Levaquin to finish a 10-day course. Attestations Medical Necessity Statement*: Requires further hospitalization for management of sepsis secondary pyelonephritis of transplanted kidney in the setting of renal transplant Time Spent in Patient Care: Greater than 35 minutes (>than 50% of time spent in counselling and/or direct pt care on unit) . Coding Level of Care Code Acute Top Edge Beveler for Chg Fwd Diagnoses Complicated UTI (urinary tract infection) N39.0 Sepsis A41.9 Transplanted kidney Z94.0 Immunocompromised D84.9 Chronic steroid use
[2021-10-01 16:00] VITALS: BP 144/89; PULSE 80; RESP 16; TEMP 37.1; O2SAT 94
[2021-10-01 16:48] LABS: Glucose Point of Care 109 mg/dL (70-110)
[2021-10-01 18:49] LABS: Potassium, Radom Urine 18 mmol/L; Urine Creatinine 71 mg/dL (39-259); Urine Random Chloride 84 mmol/L; Urine Random Sodium 105 mmol/L
[2021-10-01 18:54] LABS: Creatinine Urine, Random 73 mg/dL (39-259); Microalbumin Random Urine 10 ug/dL (0-20)
[2021-10-01 18:56] LABS: Microalbum Creatinine Ratio Ur 137 mg/dL (0-20)
[2021-10-01 19:02] LABS: Eosinophil Urine No Eosinophils Seen
--- NOTE | 2021-10-01 19:09 | PC.NURSE ---
Report to Maria C THIBODEAUX at this time.
[2021-10-01 20:00] VITALS: BP 150/79; PULSE 83; RESP 18; TEMP 36.7; O2SAT 94
[2021-10-01 20:56] LABS: Glucose Point of Care 112 mg/dL (70-110)
[2021-10-02] VITALS: BP 142/62; PULSE 78; RESP 17; TEMP 36.7; O2SAT 93
[2021-10-02] MEDS: HYDROcodone-acetaminophen 5-325 mg Tablet 1 TAB PO (03:06)
[2021-10-02 03:53] VITALS: BP 138/59; PULSE 75; RESP 17; TEMP 36.6; O2SAT 93
[2021-10-02] MEDS: piperacillin-tazobactam 3.375 GM in sodium chloride 0.9% (plus) 50 ML IV (05:06)
[2021-10-02] MEDS: heparin 5,000 unit/mL INJ 1 mL 5000 UNIT SUBCUT (05:06)
[2021-10-02 06:22] LABS: Basophils # 0.1 10^3/uL (0.0-0.1); Basophils % 0.9 %; Eosinophils # 0.3 10^3/uL (0.0-0.8); Eosinophils % 4.8 %; Hematocrit 43.1 % (42.0-52.0); Hemoglobin 13.3 g/dL (11.7-16.6); Lymphocytes # 0.9 10^3/uL (0.8-4.8); Lymphocytes % 13.2 %; Mean Corpuscular HGB Conc 30.9 g/dL (30.0-36.0); Mean Corpuscular Hemoglobin 25.5 pg (28.0-34.0); Mean Corpuscular Volume 82.6 fl (80-94); Mean Platelet Volume 11.7 fL (7.4-10.4); Monocytes % 13.5 %; Neutrophils # 4.62 10^3/uL (1.8-7.7); Neutrophils % 65.8 %; Nucleated Red Blood Cells % 0 %; Platelet Count 214 10^3/cmm (130-400); Red Blood Count 5.22 10^6/uL (4.1-5.3)
[2021-10-02 06:40] LABS: Magnesium 1.5 mg/dL (1.7-2.3); Phosphorus 3.2 mg/dL (2.5-4.5)
[2021-10-02 06:42] LABS: Alanine Aminotransferase 25 U/L (0-41); Albumin Level 3.5 g/dL (3.5-5.2); Alkaline Phosphatase 86 IU/L (40-130); Anion Gap 20.2 (5-19); Aspartate Amino Transferase 27 U/L (0-40); Blood Urea Nitrogen 19 mg/dL (8-23); Calcium 9.5 mg/dL (8.5-10.5); Carbon Dioxide 19 mmol/L (22-29); Chloride 105 mmol/L (98-107); Globulin 3.2 g/dL (1.3-4.6); Glomerular Filtration Rate 74.8 mL/min (90-130); Glucose 64 mg/dL (65-115); Osmolality Calculated 290 mOsm/kg (285-295); Potassium 4.2 mmol/L (3.5-5.1); Sodium 140 mmol/L (136-145); Total Bilirubin 0.4 mg/dL (0.15-1.2); Total Protein 6.7 g/dL (6.6-8.7)
[2021-10-02 06:49] LABS: Glucose Point of Care 74 mg/dL (70-110)
[2021-10-02 07:12] VITALS: BP 162/97; PULSE 76; RESP 16; TEMP 36.8; O2SAT 92
[2021-10-02] MEDS: allopurinol 100 mg Tablet 200 MG PO (08:35)
[2021-10-02] MEDS: gabapentin 300 mg Capsule 600 MG PO (08:35)
[2021-10-02] MEDS: isosorbide mononitrate ER 60 mg Tablet 30 MG PO (08:35)
[2021-10-02] MEDS: aspirin 81 mg Chew Tablet PO (08:35)
[2021-10-02] MEDS: atorvastatin 40 mg Tablet 80 MG PO (08:35)
[2021-10-02] MEDS: predniSONE 5 mg Tablet PO (08:37)
[2021-10-02] MEDS: pantoprazole DR 40 mg Tablet PO (08:37)
[2021-10-02] MEDS: metoprolol succinate ER (24 HR) 50 mg Tablet 25 MG PO (08:37)
[2021-10-02] MEDS: tamsulosin 0.4 mg Capsule PO (08:38)
--- NOTE | 2021-10-02 10:24 | PC.SOCIAL ---
IMM Update Pg. 2 of IMM updated and reviewed with patient, who verbalized understanding. Copy provided.
[2021-10-02] MEDS: tacrolimus 0.5 mg Capsule 1 MG PO (10:30)
[2021-10-02 10:55] VITALS: BP 139/91; PULSE 78; RESP 16; TEMP 36.6; O2SAT 90
--- NOTE | 2021-10-02 11:03 | P.PN_ITS ---
Subjective Subjective: Interval history: Mr. Mendoza feels well today. Passing urine well although with a little more frequency. No abdominal or back pain. No dysuria. No fevers or chills. No other acute symptoms i.e. no extremity edema or other hypervolemic symptoms. Hemodynamics reviewed and are stable. Vitals/I&O/Wt Last Vital Signs Temp 98 F 10/02/21 10:55 Pulse 78 10/02/21 10:55 Resp 16 10/02/21 10:55 BP 139/91 10/02/21 10:55 Pulse Ox 90 10/02/21 10:55 10/01/21 10/02/21 10/02/21 22:59 06:59 14:59 Intake Total 280 / 800 1010 / 1810 50 / 50 Output Total 710 / 710 Balance 280 / 800 300 / 1100 50 / 50 Weight last 48 hrs Weight 93.032 kg Physical Exam Narrative: EXAM NARRATIVE: Constitutional: Awake, comfortable HEENT: Wet mucosa, no jvp, non icteric Lungs: Bilaterally clear without discernible wheeze, rales in all lung zones CVS: S1 S2, no murmurs Abdo: Soft, BS ok, no pain over the transpalnt Ext 4: Minimal edema, peripheral perfusion with no cyanosis Neurological: Grossly non-focal Data : 10/02/21 05:29 10/02/21 05:29 Micro: Microbiology 10/01/21 13:57 Blood Culture - Preliminary Blood SPECIMEN COLLECTED 10/01/21 13:52 Blood Culture - Preliminary Blood SPECIMEN COLLECTED 09/29/21 11:55 Blood Culture - Preliminary Blood Bacillus sp not b. anthracis 09/29/21 12:20 Urine Culture - Final Urine,Clean Catch Escherichia coli A&P Additional A&P Information 1. Allograft Allograft function is beautiful. 2. Immunosuppression Currently on dual immunosuppression with tacrolimus 1 mg p.o. twice daily and prednisone 5 mg. He is unsure why he is not on CellCept. I defer this to the [facility] transplant team. Tacrolimus level to be monitored as an outpatient. 3. Transplant pyelonephritis Sensitive E. coli species in the urine. Currently on antibiotics. Would recommend discharge on fluoroquinolone. 4. Disposition Okay for discharge today from my perspective with close follow-up from the outpatient transplant team. Kel Charles MD Nephrology [phone] Patient seen and examined via telemedicine, with the assistance of the bedside RN > 25 min spent in evaluation and mgmt of patient Attestations Medical Necessity Statement*: Eval for renal transplant Coding Level of Care Code Acute Silo Painter for Alivia Abbott
--- NOTE | 2021-10-02 11:49 | PM.DCS ---
Discharge Providers Date of Admission: 09/29/21 15:22 Date of Discharge: October 02, 2021 Attending Provider at Admission: Harris Guerra Attending Provider at Discharge: Taj Dave MD Primary Care Provider: Eliazar Owen DO Diagnoses at Discharge Discharge Diagnosis (1) Complicated UTI (urinary tract infection): Status: Acute (2) Sepsis: Status: Acute (3) Transplanted kidney: Status: Acute (4) Immunocompromised: Status: Acute (5) Chronic steroid use: Status: Acute Reason for Visit Reason for Visit: FEVER/WEAK Hospital Course Hospital Course Pleasant 66-year-old gentleman with history of ESRD, kidney transplant 2-1/2 years ago, following with transplant team at [facility] in [place], CAD status post 3 stents, COPD, DM 2, with peripheral neuropathy, hepatitis B, questionable history of hepatitis C, could not be confirmed on subsequent testing, BPH presents due to 3 days of malaise, generalized weakness, poor appetite, mid back pain. Infectious work-up during hospitalization was consistent with sepsis secondary to pyelonephritis/complicated UTI. He was started on broad-spectrum antibiotics secondary to his immunocompromise status. His blood cultures from day 1 came back positive for 1 out of 4 bottles bacillus which is most likely contaminant. Repeat blood cultures have remained so far negative. Urine cultures came back positive for E. coli. Antibiotics were curtailed as per the sensitivities. His hospitalization was otherwise unremarkable. He is been discharged in hemodynamically stable condition on oral Levaquin for 10 days. He is to follow-up with his primary care provider within next 1 week and with his transplant team within next 2 weeks. Physical Exam Const: COMMON NORMALS: no acute distress, patient oriented x3 and alert GENERAL APPEARANCE: cooperative and ill appearing ORIENTATION/CONSCIOUSNESS: Yes awake HENMT: COMMON NORMALS: oropharynx normal Neck/C-Spine: COMMON NORMALS: no JVD Resp: COMMON NORMALS: normal respiratory effort and clear to auscultation bilaterally AUSCULTATION: clear to auscultation bilaterally Cardio: COMMON NORMALS: no JVD, regular rhythm, S1 normal heart sound present, S2 normal heart sound present and No murmurs present (Cardio) RHYTHM: regular rhythm HEART SOUNDS: S1 normal heart sound present and S2 normal heart sound present GI: COMMON NORMALS: Normal to inspection, nondistended, normoactive bowel sounds present, Soft to palpation and non-tender PALPATION: Yes Soft to palpation Extremity: COMMON NORMALS: no joint enlargement and no pedal edema Neuro: COMMON NORMALS: patient oriented x3 and moves all extremities SENSORIUM/ORIENTATION: Yes alert Skin: COMMON NORMALS: no rashes or lesions noted GENERAL SKIN EXAM: no rashes or lesions noted Discharge Data Data Completed and Pending: Completed Studies During Hospitalization Category Date Time Status CT kidney stone [id number] Urgent Cat Scan 09/29/21 13:40 Completed Pending at discharge Category Date Time Status Blood Culture Sta t Lab 09/29/21 11:50 Results Blood Culture Sta t Lab 10/01/21 13:57 Results MRSA by PCR Routi ne Lab 10/01/21 17:32 Received Magnesium AM LABS Lab 10/03/21 04:00 Ordered Magnesium AM LABS Lab 10/04/21 04:00 Ordered Phosphorus AM LAB S Lab 10/03/21 04:00 Ordered Phosphorus AM LAB S Lab 10/04/21 04:00 Ordered Labs from last 24 hours 10/02/21 10/02/21 10/02/21 06:46 05:29 05:29 WBC 7.0 RBC 5.22 Hgb 13.3 Hct 43.1 MCV 82.6 MCH 25.5 L MCHC 30.9 RDW 17.0 H Plt Count 214 MPV 11.7 H Neut % (Auto) 65.8 Lymph % (Auto) 13.2 [place] % (Auto) 13.5 Eos % (Auto) 4.8 Baso % (Auto) 0.9 Neut # (Auto) 4.62 Lymph # (Auto) 0.9 [place] # (Auto) 1.0 H Eos # (Auto) 0.3 Baso # (Auto) 0.1 Nucleated RBC % (a uto) 0 Nucleated RBCs # 0.0 Sodium 140 Potassium 4.2 Chloride 105 Carbon Dioxide 19 L Anion Gap 20.2 H BUN 19 Creatinine 1.0 GFR Calculation 74.8 L Glucose 64 L POC Glucose 74 Calculated Osmolal ity 290 Calcium 9.5 Phosphorus Magnesium Total Bilirubin 0.4 AST 27 ALT 25 Alkaline Phosphata se 86 Total Protein 6.7 Albumin 3.5 Globulin 3.2 Ur Eosinophil Smea r Urine Eosinophils Ur Random Microalb umin Ur Random Sodium Ur Random Potassiu m Ur Random Chloride Urine Creatinine Microalb/Creat Rat io Tacrolimus (FK 506 ) 10/02/21 10/01/21 10/01/21 05:29 20:38 17:17 WBC RBC Hgb Hct MCV MCH MCHC RDW Plt Count MPV Neut % (Auto) Lymph % (Auto) [place] % (Auto) Eos % (Auto) Baso % (Auto) Neut # (Auto) Lymph # (Auto) [place] # (Auto) Eos # (Auto) Baso # (Auto) Nucleated RBC % (a uto) Nucleated RBCs # Sodium Potassium Chloride Carbon Dioxide Anion Gap BUN Creatinine GFR Calculation Glucose POC Glucose 112 H Calculated Osmolal ity Calcium Phosphorus 3.2 Magnesium 1.5 L Total Bilirubin AST ALT Alkaline Phosphata se Total Protein Albumin Globulin Ur Eosinophil Smea r Urine Eosinophils Ur Random Microalb umin Ur Random Sodium 105 Ur Random Potassiu m 18 Ur Random Chloride 84 Urine Creatinine 71 Microalb/Creat Rat io Tacrolimus (FK 506 ) 10/01/21 10/01/21 10/01/21 17:17 16:12 10:36 WBC RBC Hgb Hct MCV MCH MCHC RDW Plt Count MPV Neut % (Auto) Lymph % (Auto) [place] % (Auto) Eos % (Auto) Baso % (Auto) Neut # (Auto) Lymph # (Auto) [place] # (Auto) Eos # (Auto) Baso # (Auto) Nucleated RBC % (a uto) Nucleated RBCs # Sodium Potassium Chloride Carbon Dioxide Anion Gap BUN Creatinine GFR Calculation Glucose POC Glucose 109 209 H Calculated Osmolal ity Calcium Phosphorus Magnesium Total Bilirubin AST ALT Alkaline Phosphata se Total Protein Albumin Globulin Ur Eosinophil Smea r Not Reportable Urine Eosinophils No eosinophils se en Ur Random Microalb umin 10 Ur Random Sodium Ur Random Potassiu m Ur Random Chloride Urine Creatinine 73 Microalb/Creat Rat io 137 H Tacrolimus (FK 506 ) 09/29/21 11:55 WBC RBC Hgb Hct MCV MCH MCHC RDW Plt Count MPV Neut % (Auto) Lymph % (Auto) [place] % (Auto) Eos % (Auto) Baso % (Auto) Neut # (Auto) Lymph # (Auto) [place] # (Auto) Eos # (Auto) Baso # (Auto) Nucleated RBC % (a uto) Nucleated RBCs # Sodium Potassium Chloride Carbon Dioxide Anion Gap BUN Creatinine GFR Calculation Glucose POC Glucose Calculated Osmolal ity Calcium Phosphorus Magnesium Total Bilirubin AST ALT Alkaline Phosphata se Total Protein Albumin Globulin Ur Eosinophil Smea r Urine Eosinophils Ur Random Microalb umin Ur Random Sodium Ur Random Potassiu m Ur Random Chloride Urine Creatinine Microalb/Creat Rat io Tacrolimus (FK 506 ) 6.5 Addt'l Data from Hospital Stay: Laboratory Results WBC 7.0 10^3/uL (4.0- 10.0) 10/02/21 05:29 RBC 5.22 10^6/uL (4.1 -5.3) 10/02/21 05:29 Hgb 13.3 g/dL (11.7-1 6.6) 10/02/21 05:29 Hct 43.1 % (42.0-52.0 ) 10/02/21 05:29 MCV 82.6 fl (80-94) 10/02/21 05:29 MCH 25.5 pg (28.0-34. 0) L 10/02/21 05:29 MCHC 30.9 g/dL (30.0-3 6.0) 10/02/21 05:29 RDW 17.0 % (12.1-15.1 ) H 10/02/21 05:29 Plt Count 214 10^3/cmm (130 -400) 10/02/21 05:29 MPV 11.7 fL (7.4-10.4 ) H 10/02/21 05:29 Neut % (Auto) 65.8 % 10/02/21 05:29 Lymph % (Auto) 13.2 % 10/02/21 05:29 [place] % (Auto) 13.5 % 10/02/21 05:29 Eos % (Auto) 4.8 % 10/02/21 05:29 Baso % (Auto) 0.9 % 10/02/21 05:29 Neut # (Auto) 4.62 10^3/uL (1.8 -7.7) 10/02/21 05:29 Lymph # (Auto) 0.9 10^3/uL (0.8- 4.8) 10/02/21 05:29 [place] # (Auto) 1.0 10^3/uL (0.2- 0.9) H 10/02/21 05:29 Eos # (Auto) 0.3 10^3/uL (0.0- 0.8) 10/02/21 05:29 Baso # (Auto) 0.1 10^3/uL (0.0- 0.1) 10/02/21 05:29 Nucleated RBC % (a uto) 0 % 10/02/21 05:29 Nucleated RBCs # 0.0 /100WBC 10/02/21 05:29 Sodium 140 mmol/L (136-1 45) 10/02/21 05:29 Potassium 4.2 mmol/L (3.5-5 .1) 10/02/21 05:29 Chloride 105 mmol/L (98-10 7) 10/02/21 05:29 Carbon Dioxide 19 mmol/L (22-29) L 10/02/21 05:29 Anion Gap 20.2 (5-19) H 10/02/21 05:29 BUN 19 mg/dL (8-23) 10/02/21 05:29 Creatinine 1.0 mg/dL (0.7-1. 2) 10/02/21 05:29 GFR Calculation 74.8 mL/min (90-1 30) L 10/02/21 05:29 Glucose 64 mg/dL (65-115) L 10/02/21 05:29 POC Glucose 74 mg/dL (70-110) 10/02/21 06:46 Calculated Osmolal ity 290 mOsm/kg (285- 295) 10/02/21 05:29 Lactic Acid 1.7 mmol/L (0.5-2 .2) 09/29/21 14:11 Calcium 9.5 mg/dL (8.5-10 .5) 10/02/21 05:29 Phosphorus 3.2 mg/dL (2.5-4. 5) 10/02/21 05:29 Magnesium 1.5 mg/dL (1.7-2. 3) L 10/02/21 05:29 Total Bilirubin 0.4 mg/dL (0.15-1 .2) 10/02/21 05:29 AST 27 U/L (0-40) 10/02/21 05:29 ALT 25 U/L (0-41) 10/02/21 05:29 Alkaline Phosphata se 86 IU/L (40-130) 10/02/21 05:29 Total Protein 6.7 g/dL (6.6-8.7 ) 10/02/21 05:29 Albumin 3.5 g/dL (3.5-5.2 ) 10/02/21 05:29 Globulin 3.2 g/dL (1.3-4.6 ) 10/02/21 05:29 Procalcitonin 0.45 ng/mL (0-0.5 ) 09/30/21 05:10 Urine Color Yellow (Yellow) 09/29/21 12:20 Urine Appearance Hazy (CLEAR) A 09/29/21 12:20 Urine pH 5 (5-7) 09/29/21 12:20 Ur Specific Gravit y 1.015 (1.005-1.0 30) 09/29/21 12:20 Urine Protein 1+ (Negative) H 09/29/21 12:20 Urine Glucose (UA) Norm (Normal) 09/29/21 12:20 Urine Ketones Negative (Negati ve) 09/29/21 12:20 Urine Blood 2+ (Negative) H 09/29/21 12:20 Urine Nitrate Positive (Negati ve) H 09/29/21 12:20 Urine Bilirubin Neg (Negative) 09/29/21 12:20 Urine Urobilinogen 1 mg/dL (Negative ) H 09/29/21 12:20 Ur Leukocyte Gretel ase Negative (Negati ve) 09/29/21 12:20 Urine RBC 5-10 /hpf (0-2) H 09/29/21 12:20 Urine WBC 25-40 /hpf (0-5) H 09/29/21 12:20 Ur Eosinophil Smea r Not Reportable 10/01/21 17:17 Ur Squamous Epith Cells Rare /hpf (0-5) 09/29/21 12:20 Amorphous Sediment Not Reportable 09/29/21 12:20 Urine Bacteria 4+ /hpf (NONE) H 09/29/21 12:20 Urine Eosinophils No eosinophils se en 10/01/21 17:17 Ur Random Microalb umin 10 ug/dL (0-20) 10/01/21 17:17 Ur Random Sodium 105 mmol/L 10/01/21 17:17 Ur Random Potassiu m 18 mmol/L 10/01/21 17:17 Ur Random Chloride 84 mmol/L 10/01/21 17:17 Urine Creatinine 71 mg/dL (39-259) 10/01/21 17:17 Urine Creatinine 73 mg/dL (39-259) 10/01/21 17:17 Microalb/Creat Rat io 137 mg/dL (0-20) H 10/01/21 17:17 Tacrolimus (FK 506 ) 6.5 mcg/L 09/29/21 11:55 Influenza Type A A g Negative (Negati ve) 09/29/21 10:07 Influenza Type B A g Negative (Negati ve) 09/29/21 10:07 SARS-CoV-2 Ag (Rap id) Negative (Negati ve) 09/29/21 10:07 Impressions Abdomen/Pelvis CT 09/29/21 13:40 IMPRESSION: Right lower quadrant pelvic transplant kidney with minimal inflammation in the perirenal fat suggesting possible nephritis/pyelonephritis. Microbiology 10/01/21 13:57 Blood Blood Culture - Preliminary SPECIMEN COLLECTED 10/01/21 13:52 Blood Blood Culture - Preliminary SPECIMEN COLLECTED 09/29/21 11:55 Blood Blood Culture - Preliminary Bacillus sp not b. anthracis 09/29/21 12:20 Urine,Clean Catch Urine Culture - Final Escherichia coli 09/29/21 11:50 Blood Blood Culture - Preliminary NEGATIVE TO DATE Vitals: Last Vital Signs Temp 98 F 10/02/21 10:55 Pulse 78 10/02/21 10:55 Resp 16 10/02/21 10:55 BP 139/91 10/02/21 10:55 Pulse Ox 90 10/02/21 10:55 Discharge Plan Discharge Patient Disposition: Home Condition: Stable Prescriptions: New levofloxacin 500 mg tablet 500 mg PO Q24H 10 Days Qty: 10 RF: 0 Continued atorvastatin 80 mg tablet 80 mg PO DAILY RF: 0 gabapentin 600 mg tablet 600 mg PO TID RF: 0 metoprolol succinate 50 mg tablet extended release 24 hr 50 mg PO DAILY RF: 0 hydrocodone-acetaminophen 5-325 mg tablet 1 tab PO Q6H PRN (Reason: Pain) RF: 0 prednisone 5 mg tablet 5 mg PO DAILY RF: 0 amlodipine 5 mg tablet 5 mg PO DAILY RF: 0 allopurinol 100 mg tablet 200 mg PO DAILY RF: 0 isosorbide mononitrate 60 mg tablet extended release 24 hr 60 mg PO DAILY RF: 0 magnesium oxide 400 mg (241.3 mg magnesium) tablet 400 mg PO BID RF: 0 tamsulosin 0.4 mg capsule 0.4 mg PO DAILY RF: 0 nitroglycerin 0.4 mg tablet, sublingual 0.4 mg sublingual Q5MIN PRN (Reason: CHEST PAIN) RF: 0 omeprazole 20 mg capsule,delayed release(DR/EC) 20 mg PO DAILY RF: 0 lisinopril 5 mg tablet 5 mg PO DAILY RF: 0 tacrolimus 1 mg capsule 1 mg PO BID RF: 0 Novolog Flexpen U-100 Insulin 100 unit/mL (3 mL) insulin pen 18 unit SUBCUT .PER SLIDING SCALE RF: 0 entecavir 0.5 mg tablet 0.5 mg PO DAILY MDD SEE PHARMACY COMMENT RF: 0 Levemir FlexTouch U-100 Insuln 100 unit/mL (3 mL) insulin pen 32 unit SUBCUT BID RF: 0 aspirin 81 mg Tablet,Chewable 81 mg PO DAILY RF: 0 Discharge Orders: Discharge Order (Routine); Ordered 10/02/21 Ordered By: Taj Dave Referrals: Eliazar Owen DO [Primary Care Provider] - 7-10 days Discharge Diet: Cardiac and Diabetic Discharge Activity: Resume usual activity Patient Instructions: Opioid Safety Activity Restrictions/Additional Instructions: Please take oral Levaquin for next 10 days. Please follow-up with your primary care provider within next 7 to 10 days. Please follow-up with your transplant team within next 2 weeks. Discharge Attestations Time Spent in Discharge Care*: greater than 30 min Specific Discharge Activities: educating patient, discussing with pcp/other providers, discussing with spring encaser/social workers/dc planners, documenting/other paperwork and evaluating patient/reviewing data Status at Discharge: Cognitive status at discharge: cognitively intact, Behavioral status at discharge: cooperative, Functional status at discharge: independent ambulation Overall status at discharge: patient is back to baseline Quality Metrics Clinical Quality Measures During this hospital stay, did patient experience: None Coding Level of Care Code Acute Chg FW DC note Diagnoses Complicated UTI (urinary tract infection) N39.0 Sepsis A41.9 Transplanted kidney Z94.0 Immunocompromised D84.9 Chronic steroid use
[2021-10-02 12:02] LABS: Glucose Point of Care 169 mg/dL (70-110)
[2021-10-02 13:03] VITALS: BP 139/91; PULSE 78; RESP 16; TEMP 36.6; O2SAT 90
--- NOTE | 2021-10-02 13:04 | PC.NURSE ---
IV removed intact. Patient tolerated well. Patient is A&Ox3. Respirations even and non-labored on room air. Reviewed discharge papers with patient. Patient verbalized understanding of discharge instructions and how to take antibiotics. Patient wheel chaired to private car.
== END 2021-10-02 13:06 | disposition home or self-care (01) | DRG 872 ==
LOC: ER 15:22 → MEDSURG 20:11
PROVIDERS: Internal Medicine Nephrology; Admitting Provider Internal Medicine; Emergency Provider Emergency Medicine; PCP Family Medicine; Visit Provider Student in an Organized Health Care Education/Training Program
DX: A41.9 Sepsis, unspecified organism (principal); N39.0 Urinary tract infection, site not specified; N12 Tubulo-interstitial nephritis, not specified as acute or chronic; Z94.0 Kidney transplant status; D84.9 Immunodeficiency, unspecified; B19.10 Unspecified viral hepatitis B without hepatic coma; B96.20 Unspecified Escherichia coli [E. coli] as the cause of diseases classified elsewhere; N40.0 Benign prostatic hyperplasia without lower urinary tract symptoms; I25.10 Atherosclerotic heart disease of native coronary artery without angina pectoris; I10 Essential (primary) hypertension; J44.9 Chronic obstructive pulmonary disease, unspecified; E11.40 Type 2 diabetes mellitus with diabetic neuropathy, unspecified; Z79.52 Long term (current) use of systemic steroids; Z95.5 Presence of coronary angioplasty implant and graft; Z87.891 Personal history of nicotine dependence; Z79.4 Long term (current) use of insulin; Z79.82 Long term (current) use of aspirin
CPT/HCPCS: 36415; 36416; 74176; 80053; 80197; 81001; 82044; 82436; 82570; 82962; 83605; 83735; 84100; 84133; 84145; 84300; 85025; 85999; 87040; 87077; 87086; 87186; 87205; 87426; 87641; 87804; 96372; J0696; J1644; J1815; J2270; J2405; J2543; J3370; J7030; J7507; J7512; Q3014

== ENCOUNTER 2022-09-30 09:40 | Emergency (ER) | payer MEDICARE, MEDICAID, SELFPAY ==
--- NOTE | 2022-09-30 | USCV_ITS ---
3 Desmond Mendoza Age: 67 Gender: M : 1955 Exam Date: 09/30/2022 10:27 Ordering Phys: Nitin Calhoun MD Technologist: Oscar Santiago Exam Location: [facility] [place]_ Indication: rt arm pain and swelling PROCEDURES: Venous duplex imaging was performed in only the right upper extremity. The following venous structures were evaluated: internal jugular vein, subclavian vein, axillary vein, and brachial veins. In addition, the basilic vein, cephalic vein, radial vein, and ulnar vein. FINDINGS: No evidence of deep vein thrombosis or superficial thrombophlebitis in the right upper extremity. CONCLUSIONS No evidence of thrombus of the right upper extremity veins. D/w Dr. Calhoun 1300 on 09/30/22 Stephen Lam MD (Electronically Signed) Final Date: 30 September 2022 13:16 S
[2022-09-30 09:44] VITALS: BP 157/90; PULSE 74; RESP 16; TEMP 36.6; O2SAT 94; BMI 32.2
--- NOTE | 2022-09-30 10:00 | W.ED.EXTPRO ---
HPI - Extremity Problem General: Chief complaint: Extremity Problem,Nontraumatic Stated complaint: hip/arm pain Time Seen by Provider: 09/30/22 10:00 History of Present Illness: Mr. Mendoza is a 67-year-old gentleman with significant past medical history of diabetes, hypertension, hyperlipidemia presenting to the emergency department due to foot pain. He reports a number of month history of atraumatic foot pain which has been previously evaluated by podiatry and the patient was told that he needs insoles. However, over the past few days he has noticed a wound with some drainage on the bottom of his foot as well as increased swelling in the leg and increased pain controlled by his typical medications at home. Density symptoms is moderate at rest but becomes severe with ambulation. Denies other signs systemic illness. As a separate concern he reports sudden onset of arm tingling and a bulge as well as more prominence of veins in his right upper extremity at rest last night. No other specific changes in health, exacerbating, or alleviating factors identified. Onset (ago): day(s) Pain Consistency: constant Location: right and lower extremity Quality: aching Radiation: proximal Relieving factors: nothing Exacerbating factors: weight bearing Associated symptoms: Reports other Review of Systems General: Reports: 10 or more systems reviewed and unremarkable except in HPI and below PFSH ED PFSH: Medical History BPH (benign prostatic hyperplasia) CAD (coronary artery disease) Chronic steroid use COPD (chronic obstructive pulmonary disease) Diabetic neuropathy DM type 2 (diabetes mellitus, type 2) Hepatitis B Immunocompromised Surgical History Stented coronary artery Transplanted kidney Family History Other Diabetes Social History Smoking and tobacco status: former smoker Alcohol intake: never Lives independently: Yes Household members: spouse Marital status: Current occupational status: retired Physical Exam Const: COMMON NORMALS: alert GENERAL APPEARANCE: cooperative and well developed HENMT: COMMON NORMALS: normocephalic and atraumatic HEAD & SCALP: normocephalic and atraumatic Eye: COMMON NORMALS: conjunctivae normal CONJUNCTIVA: Yes conjunctivae normal SCLERA: sclerae normal Neck/C-Spine: COMMON NORMALS: supple GENERAL: Yes trachea midline Resp: COMMON NORMALS: normal respiratory effort EFFORT & INSPECTION: Yes able to speak in complete sentences Cardio: COMMON NORMALS: regular rate and regular rhythm RATE: regular rate RHYTHM: regular rhythm GI: COMMON NORMALS: Soft to palpation PALPATION: Yes Soft to palpation and No Tenderness to palpation present (GI) Extremity: NARRATIVE EXTREMITY EXAM: Right upper extremity CMS intact. There is a palpable cord in the AC region with associated vascular prominence of superficial veins which patient reports to be new. Right lower extremity 1+ edema to mid ankle, no significant erythema, there is a area of callus at the MTP region on the plantar aspect with a small approximately 3 mm diameter area of central eschar, no drainage or purulence. There is some increased tenderness palpation. GENERAL: Yes normal exam except as noted and No edema Neuro: COMMON NORMALS: moves all extremities SENSORIUM/ORIENTATION: Yes alert and No Orientation impaired Psych: COMMON NORMALS: mental status grossly normal and Normal thought process present THOUGHT PROCESS: Normal thought process present Course Vital Signs: Vital signs: Vital Signs Temperature 97.8 F 09/30/22 09:44 Pulse Rate 69 09/30/22 11:43 Respiratory Rate 18 09/30/22 11:36 Blood Pressure 144/65 09/30/22 11:43 Pulse Oximetry 93 09/30/22 11:43 Oxygen Delivery Me thod 09/30/22 11:43 MDM - Extremity (Nontraumatic) Medical Decision Making 67-year-old gentleman presenting with concern over foot wound and right upper extremity discomfort. Patient is nontoxic in appearance. Heart rate satisfactory and patient is nonfebrile. Labs with minimal leukocytosis, hemoglobin normal. ESR and CRP are mildly elevated. No acute electrolyte arrangement or evidence of DKA. Right upper extremity ultrasound negative for DVT. X-ray with minimal erosion of the right first toe proximal phalanx medial base and medial head of the right first metatarsal with soft tissue swelling. Podiatry consulted and performed bedside evaluation/debridement. Per evaluation patient is satisfactory for outpatient management with antibiotics. They will send antibiotics and topical treatment. Patient instructed in follow-up. Cam boot ordered. The results of ED evaluation were discussed with the patient including prescriptions and/or symptomatic cares (if applicable) including appropriate and responsible use, followup plan, and return precautions. The patient verbalized understanding and felt safe for discharge. Medical Records I reviewed the patient's medical records. Lab Data I reviewed the patient's lab results. 09/30/22 10:53 09/30/22 10:53 Radiology Impressions Foot X-Ray 09/30/22 10:16 Impression: Minimal erosion of the right first toe proximal phalanx medial base and medial head of the right first metatarsal with soft tissue swelling. Laboratory Results WBC 11.4 10^3/uL (4.0-10.0) H 09/30/22 10:53 RBC 4.57 10^6/uL (4.1-5.3) 09/30/22 10:53 Hgb 12.4 g/dL (11.7-16.6) 09/30/22 10:53 Hct 40.5 % (42.0-52.0) L 09/30/22 10:53 MCV 88.6 fl (80-94) 09/30/22 10:53 MCH 27.1 pg (28.0-34.0) L 09/30/22 10:53 MCHC 30.6 g/dL (30.0-36.0) 09/30/22 10:53 RDW 16.8 % (12.1-15.1) H 09/30/22 10:53 Plt Count 304 10^3/cmm (130-400) 09/30/22 10:53 MPV 11.4 fL (7.4-10.4) H 09/30/22 10:53 Neut % (Auto) 79.7 % 09/30/22 10:53 Lymph % (Auto) 8.9 % 09/30/22 10:53 Hitchcock % (Auto) 6.6 % 09/30/22 10:53 Eos % (Auto) 3.0 % 09/30/22 10:53 Baso % (Auto) 0.4 % 09/30/22 10:53 Neut # (Auto) 9.08 10^3/uL (1.8-7.7) H 09/30/22 10:53 Lymph # (Auto) 1.0 10^3/uL (0.8-4.8) 09/30/22 10:53 Hitchcock # (Auto) 0.8 10^3/uL (0.2-0.9) 09/30/22 10:53 Eos # (Auto) 0.3 10^3/uL (0.0-0.8) 09/30/22 10:53 Baso # (Auto) 0.1 10^3/uL (0.0-0.1) 09/30/22 10:53 Nucleated RBC % (auto) 0 % 09/30/22 10:53 Nucleated RBCs # 0.0 /100WBC 09/30/22 10:53 ESR 16 mm/hr (0-10) H 09/30/22 10:53 Sodium 138 mmol/L (136-145) 09/30/22 10:53 Potassium 4.8 mmol/L (3.5-5.1) 09/30/22 10:53 Chloride 105 mmol/L (98-107) 09/30/22 10:53 Carbon Dioxide 24 mmol/L (22-29) 09/30/22 10:53 Anion Gap 13.8 (5-19) 09/30/22 10:53 BUN 21 mg/dL (8-23) 09/30/22 10:53 Creatinine 1.1 mg/dL (0.7-1.2) 09/30/22 10:53 GFR Calculation 66.8 mL/min (90-130) L 09/30/22 10:53 Glucose 133 mg/dL (65-115) H 09/30/22 10:53 POC Glucose 129 mg/dL (70-110) H 09/30/22 10:55 Calculated Osmolality 291 mOsm/kg (285-295) 09/30/22 10:53 Calcium 9.7 mg/dL (8.5-10.5) 09/30/22 10:53 Total Bilirubin 0.4 mg/dL (0.15-1.2) 09/30/22 10:53 AST 16 U/L (0-40) 09/30/22 10:53 ALT 13 U/L (0-41) 09/30/22 10:53 Alkaline Phosphatase 121 U/L (40-130) 09/30/22 10:53 C-Reactive Protein 28.7 mg/L (0.0-4.9) H 09/30/22 10:53 Total Protein 7.2 g/dL (6.6-8.7) 12/13/22 10:53 Albumin 3.9 g/dL (3.5-5.2) 09/30/22 10:53 Globulin 3.3 g/dL (1.3-4.6) 09/30/22 10:53 Discharge Plan Discharge Patient Disposition: Home Clinical Impression: Diabetic foot ulcer Condition: Stable Prescriptions: New doxycycline hyclate 100 mg tablet 100 mg PO Q12H 14 Days Qty: 28 0RF mupirocin 2 % ointment 1 applic topical TID 14 Days Qty: 15 0RF oxycodone 5 mg tablet 5 mg PO Q4H PRN (Reason: pain) Qty: 10 0RF No Action atorvastatin 80 mg tablet 80 mg PO DAILY gabapentin 600 mg tablet 600 mg PO TID metoprolol succinate 50 mg tablet extended release 24 hr 50 mg PO DAILY hydrocodone-acetaminophen 5-325 mg tablet 1 tab PO Q6H PRN (Reason: Pain) prednisone 5 mg tablet 5 mg PO DAILY amlodipine 5 mg tablet 5 mg PO DAILY allopurinol 100 mg tablet 200 mg PO DAILY isosorbide mononitrate 60 mg tablet extended release 24 hr 60 mg PO DAILY magnesium oxide 400 mg (241.3 mg magnesium) tablet 400 mg PO BID tamsulosin 0.4 mg capsule 0.4 mg PO DAILY nitroglycerin 0.4 mg tablet, sublingual 0.4 mg sublingual Q5MIN PRN (Reason: CHEST PAIN) omeprazole 20 mg capsule,delayed release(DR/EC) 20 mg PO DAILY lisinopril 5 mg tablet 5 mg PO DAILY tacrolimus 1 mg capsule 1 mg PO BID Novolog Flexpen U-100 Insulin 100 unit/mL (3 mL) insulin pen 18 unit SUBCUT .PER SLIDING SCALE entecavir 0.5 mg tablet 0.5 mg PO DAILY MDD SEE PHARMACY COMMENT Levemir FlexTouch U-100 Insuln 100 unit/mL (3 mL) insulin pen 32 unit SUBCUT BID aspirin 81 mg Tablet,Chewable 81 mg PO DAILY Discharge Orders: Discharge ED (Routine); Ordered 09/30/22 Ordered By: Nitin Calhoun Referrals: Eliazar Owen DO [Primary Care Provider] - Discharge Diet: Usual diet Discharge Activity: Limit activity as instructed Patient Instructions: Diabetic Foot Ulcers (ED), Opioid Safety, Pain Management Activity Restrictions/Additional Instructions: Thank you for visiting the emergency department. You were seen and evaluated for foot pain. You have a diabetic foot ulcer. This was evaluated by podiatry in the emergency department. Please follow all instructions that they gave you. A follow-up appointment has been scheduled for 10/08/2022 at 930 however please call to verify this appointment time. Please use the antibiotics and topical medication as instructed. I will prescribe oxycodone for severe uncontrolled pain though I would expect this to improve with the antibiotics. Please use this cautiously and do not take it at the same time as your hydrocodone acetaminophen. Please return to the emergency department for uncontrolled symptoms, fevers, inability to tolerate oral intake, or anything else that you are concerned about a feel needs emergency department evaluation. Coding Level of Care Code ED Animal Trainer Supervisor for Alivia Abbott Exam Comprehensive
--- NOTE | 2022-09-30 10:16 | XR_ITS ---
WS: [id number] Right foot, 3 views, 09/30/2022 Clinical Data: wound plantar 1st MTP, swelling, pain Comparison: None. Findings: No fractures or dislocations are seen. There is minimal erosion of the medial aspect of the base of t he right first toe proximal phalanx and of the medial aspect of the head of the right first metatarsa l. There is minimal swelling at the right first MTP joint. No radiopaque foreign body is noted. No subcutaneous abscess is seen. There is a plantar spur and an Achilles spur. XR/XR foot RT min 3V* [id number] Impression: Minimal erosion of the right first toe proximal phalanx medial base and medial head of the right first metatarsal with soft tissue swelling.
[2022-09-30 11:03] LABS: Glucose Point of Care 129 mg/dL (70-110)
[2022-09-30 11:04] LABS: Basophils # 0.1 10^3/uL (0.0-0.1); Basophils % 0.4 %; Eosinophils # 0.3 10^3/uL (0.0-0.8); Hematocrit 40.5 % (42.0-52.0); Hemoglobin 12.4 g/dL (11.7-16.6); Lymphocytes % 8.9 %; Mean Corpuscular HGB Conc 30.6 g/dL (30.0-36.0); Mean Corpuscular Hemoglobin 27.1 pg (28.0-34.0); Mean Corpuscular Volume 88.6 fl (80-94); Mean Platelet Volume 11.4 fL (7.4-10.4); Monocytes # 0.8 10^3/uL (0.2-0.9); Monocytes % 6.6 %; Neutrophils # 9.08 10^3/uL (1.8-7.7); Neutrophils % 79.7 %; Nucleated Red Blood Cells % 0 %; Platelet Count 304 10^3/cmm (130-400); Red Blood Count 4.57 10^6/uL (4.1-5.3); Red Cell Distribution Width 16.8 % (12.1-15.1); White Blood Count 11.4 10^3/uL (4.0-10.0)
[2022-09-30 11:06] LABS: Erythrocyte Sedimentation Rate 16 mm/hr (0-10)
[2022-09-30 11:27] LABS: Alanine Aminotransferase 13 U/L (0-41); Albumin Level 3.9 g/dL (3.5-5.2); Alkaline Phosphatase 121 U/L (40-130); Anion Gap 13.8 (5-19); Aspartate Amino Transferase 16 U/L (0-40); Blood Urea Nitrogen 21 mg/dL (8-23); C Reactive Protein 28.7 mg/L (0.0-4.9); Calcium 9.7 mg/dL (8.5-10.5); Carbon Dioxide 24 mmol/L (22-29); Chloride 105 mmol/L (98-107); Globulin 3.3 g/dL (1.3-4.6); Glomerular Filtration Rate 66.8 mL/min (90-130); Glucose 133 mg/dL (65-115); Osmolality Calculated 291 mOsm/kg (285-295); Potassium 4.8 mmol/L (3.5-5.1); Sodium 138 mmol/L (136-145); Total Bilirubin 0.4 mg/dL (0.15-1.2); Total Protein 7.2 g/dL (6.6-8.7)
[2022-09-30 11:36] VITALS: RESP 18
[2022-09-30] MEDS: morphine 4 mg/mL SDV 1 mL IVP (11:36)
[2022-09-30 11:43] VITALS: BP 144/65; PULSE 69; O2SAT 93
--- NOTE | 2022-09-30 12:55 | P.CONIM_ITS ---
Providers/Reason For Consult Consulting Physician/Specialty*: Bear Barber D.P.M. Reason for Consult*: Diabetic foot ulcer right foot Primary Care Provider: Eliazar Owen DO History of Present Illness History of Present Illness Desmond Mendoza is a 67 year old diabetic male presents with a ulceration to the right forefoot. He reports a callus that developed a wound underneath over the past 2 weeks. He began feeling some pain and experiencing redness, denies any drainage. He is accompanied by his . He is a recipient of a kidney transplant. He is wishing to be very proactive in regards to his foot care and would like to avoid foot infections. Presented to the emergency department for evaluation. Patient denies any subjective nausea, vomiting, fever, chills, shortness of breath or chest pain. Review of Systems General: Reports: 10 or more systems reviewed and unremarkable except in HPI and below Const: Denies: fever(s) or chills Eyes: Denies: change in vision Card: Denies: chest pain or palpitations Resp: Denies: dyspnea or productive cough GI: Denies: abdominal pain, nausea or vomiting : Denies: flank pain Musc: Reports: extremity swelling, joint stiffness and deformity Skin/Breast: Reports: erythema, sores, changes in skin color, dry skin, nail changes and change in hair Neuro: Reports: numbness in extremities, sensory changes and difficulty walking Psych: Denies: suicidal ideation Endo: Denies: change in body appearance Magen/Lymph: Denies: tender lymph nodes Medications/Allergies Home Medications Medication Instructions Recorded Confirmed Last Taken Type allopurinol 100 mg tablet 200 mg PO DAILY 09/29/21 09/29/21 09/29/21 History amlodipine 5 mg tablet 5 mg PO DAILY 09/29/21 09/29/21 09/29/21 History aspirin 81 mg chewable tablet 81 mg PO DAILY 09/29/21 09/29/21 09/29/21 History atorvastatin 80 mg tablet 80 mg PO DAILY 09/29/21 09/29/21 09/29/21 History entecavir 0.5 mg tablet 0.5 mg PO DAILY 09/29/21 09/29/21 09/28/21 History gabapentin 600 mg tablet 600 mg PO TID 09/29/21 09/29/21 09/29/21 History hydrocodone 5 mg-acetaminophen 325 1 tab PO Q6H PRN Pain 12/12/21 12/12/21 12/12/21 History mg tablet insulin aspart U-100 100 unit/mL 18 unit SUBCUT .PER SLIDING SCALE 09/29/21 09/29/21 Unknown History (3 mL) subcutaneous pen (Novolog Flexpen U-100 Insulin aspart) insulin detemir U-100 100 unit/mL 32 unit SUBCUT BID 09/29/21 09/29/21 09/29/21 History (3 mL) subcutaneous pen (Levemir FlexTouch U-100 Insulin) isosorbide mononitrate 60 mg 60 mg PO DAILY 09/29/21 09/29/21 09/29/21 History tablet,extended release 24 hr lisinopril 5 mg tablet 5 mg PO DAILY 09/29/21 09/29/21 09/29/21 History magnesium oxide 400 mg (241.3 mg 400 mg PO BID 09/29/21 09/29/21 Unknown History magnesium) tablet metoprolol succinate 50 mg 50 mg PO DAILY 09/29/21 09/29/21 09/29/21 History tablet,extended release 24 hr nitroglycerin 0.4 mg sublingual 0.4 mg sublingual Q5MIN PRN CHEST 09/29/21 09/29/21 Unknown History tablet PAIN omeprazole 20 mg capsule,delayed 20 mg PO DAILY 09/29/21 09/29/21 09/29/21 History release prednisone 5 mg tablet 5 mg PO DAILY 09/29/21 09/29/21 09/29/21 History tacrolimus 1 mg capsule, 1 mg PO BID 09/29/21 09/29/21 09/29/21 History immediate-release tamsulosin 0.4 mg capsule 0.4 mg PO DAILY 09/29/21 09/29/21 09/27/21 History doxycycline hyclate 100 mg tablet 100 mg PO Q12H 14 days #28 tabs 09/30/22 Unknown Rx mupirocin 2 % topical ointment 1 applic topical TID 14 days #15 09/30/22 Unknown Rx grams oxycodone 5 mg tablet 5 mg PO Q4H PRN pain #10 tabs 09/30/22 Unknown Rx Allergies Allergy/AdvReac Type Severity Reaction Status Date / Time cyclobenzaprine Allergy Unknown Unknown Verified 09/29/21 11:23 PFSH Acute PFSH: Medical History BPH (benign prostatic hyperplasia) CAD (coronary artery disease) Chronic steroid use COPD (chronic obstructive pulmonary disease) Diabetic neuropathy DM type 2 (diabetes mellitus, type 2) Hepatitis B Immunocompromised Surgical History Stented coronary artery Transplanted kidney Family History Other Diabetes Social History Smoking and tobacco status: former smoker Alcohol intake: never Lives independently: Yes Household members: spouse Marital status: Current occupational status: retired Vitals/I&O/Wt Last Vital Signs Temp 97.8 F 09/30/22 09:44 Pulse 69 09/30/22 11:43 Resp 18 09/30/22 11:36 BP 144/65 09/30/22 11:43 Pulse Ox 93 09/30/22 11:43 O2 Del Method 09/30/22 11:43 Weight last 48 hrs Weight 212 lb Physical Exam Narrative: GENERAL: Patient is alert and oriented ?3 and in no acute distress. The following is a focused bilateral lower extremity exam. Patient's is present. VASCULAR: Dorsalis pedis palpable +2 left and right foot. Posterior tibial arteries palpable +2. Capillary refill time less than 3 seconds to the distal hallux bilaterally. Calf is supple and nontender proximally and distally. Pedal hair growth present bilaterally. No pedal edema. NEUROLOGICAL: Protective sensation intact 5/10 sites, tested with [place] monofilament to bilateral feet. DERMATOLOGICAL: Alberto grade 2 ulcerations of first metatarsal head of the right foot with hyperkeratotic rim, fiber granular base, no purulence, very mild periwound erythema without proximal lymphangitic streaking. Wound does not probe to bone, tunnel or undermine. No other wounds or ulcerations appreciated. Predebridement wound measurements 3 mm x 3 mm x 2 mm. MUSCULOSKELETAL: Minor tenderness to palpation at ulceration right foot. Pes planus foot type bilaterally with collapse of the medial longitudinal arch. Ankle joint dorsiflexion is 5 degrees beyond neutral bilaterally. Mild hammertoe deformities with sagittal plane dominance these are fully reducible left and right foot toes 2 through 5. Mild hallux valgus deformity fully re ducible bilaterally. Muscle strength 5 out of 5 in all 3 cardinal planes to the bilateral foot and ankle. Data 09/30/22 10:53 09/30/22 10:53 Micro: Microbiology 09/30/22 12:16 Blood Culture - Preliminary Blood SPECIMEN COLLECTED 09/30/22 12:14 Blood Culture - Preliminary Blood SPECIMEN COLLECTED A&P Assessment and plan (1) Chronic ulcer of right foot with fat layer exposed: (2) Diabetic peripheral neuropathy associated with type 2 diabetes mellitus: Plan Pleasant 67-year-old diabetic male presents with Alberto grade 2 ulceration subfirst metatarsal head right foot. X-ray right foot 3 views negative for bony destruction, soft tissue of edema or foreign body. There is arthrosis of the right first metatarsal phalangeal joint. Ulcerations of first metatarsal head of the right foot was sharply and excisionally debrided down to and including subcutaneous tissue and fat layer utilizing a sterile dermal curette. This was debrided of devitalized epidermis, devitalized dermis, devitalized subcutaneous tissue and fat layer. Also debrided of biofilm, fibrin, slough and hyperkeratosis. Posterior wound measures minutes 1.2 cm x 1.1 cm x 0.2 cm. Improved granular bleeding base. Hemostasis via manual pressure. No anesthesia was required secondary to neuropathy. Wound did not probe to bone, tunnel or undermine. No deep structures such as tendon or capsule exposed. The wound was dressed with Betadine wet-to-dry. Offloading with cam boot. Prescription for doxycycline 100 mg twice daily for 10 days sent to pharmacy of choice electronically also prescription for mupirocin ointment to be applied 3 times daily. Advised patient to keep his wound clean and dry and avoid getting wet when showering. Emphasized offloading and compliance with cam boot and overall decreasing his activities. Will follow-up in podiatry clinic 10/08/2022 at 9:30 AM. Sooner should he experience complications. Coding Level of Care Code Acute Contour Stitcher for Alivia Abbott Diagnoses Chronic ulcer of right foot with fat layer exposed L97.512 Diabetic peripheral neuropathy associated with type 2 diabetes mellitus E11.42 Comment CPT 94089
[2022-10-01 10:31] LABS: Bacillus cereus group Not Detected (NOT DETECT); Bacillus subtillis group Not Detected (NOT DETECT); Corynebacterium Not Detected (NOT DETECT); Cutibacterium acnes (P.acnes) Not Detected (NOT DETECT); Enterococcus Not Detected (NOT DETECT); Enterococcus faecalis Not Detected (NOT DETECT); Enterococcus faecium Not Detected (NOT DETECT); Lactobacillus species Not Detected (NOT DETECT); Listeria Not Detected (NOT DETECT); Listeria monocytogenes Not Detected (NOT DETECT); Micrococcus Not Detected (NOT DETECT); Pan Candida Not Detected (NOT DETECT); Pan Gram-Negative Not Detected (NOT DETECT); Staphylococcus epidermidis Not Detected (NOT DETECT); Staphylococcus lugdunensis Not Detected (NOT DETECT); Staphylococcus species Detected (NOT DETECT); Streptococcus agalactiae Not Detected (NOT DETECT); Streptococcus anginosus group Not Detected (NOT DETECT); Streptococcus pneumoniae Not Detected (NOT DETECT); Streptococcus pyogenes Not Detected (NOT DETECT); Streptococcus species Not Detected (NOT DETECT); mecA Not Detected (NOT DETECT); mecC Not Detected (NOT DETECT)
== END 2022-09-30 13:30 | disposition home or self-care (01) ==
PROVIDERS: Emergency Provider Emergency Medicine; PCP Family Medicine
DX: E11.621 Type 2 diabetes mellitus with foot ulcer (principal); L97.519 Non-pressure chronic ulcer of other part of right foot with unspecified severity; Z79.4 Long term (current) use of insulin; Z79.82 Long term (current) use of aspirin; I25.10 Atherosclerotic heart disease of native coronary artery without angina pectoris; J44.9 Chronic obstructive pulmonary disease, unspecified; Z86.19 Personal history of other infectious and parasitic diseases; Z87.891 Personal history of nicotine dependence; Z94.0 Kidney transplant status
CPT/HCPCS: 36415; 36416; 73630; 80053; 82962; 85025; 85651; 86140; 87040; 87077; 87150; 87186; 87205; 93971; 96374; 97760; 99285; J2270; L4361

== ENCOUNTER → 2022-10-08 09:17 | Outpatient (BNVA) | payer MEDICARE, MEDICAID, SELFPAY | PROVIDERS: PCP Family Medicine; Visit Provider Podiatrist Foot & Ankle Surgery | DX: E11.621 Type 2 diabetes mellitus with foot ulcer (principal); Z79.4 Long term (current) use of insulin; L97.512 Non-pressure chronic ulcer of other part of right foot with fat layer exposed; E11.42 Type 2 diabetes mellitus with diabetic polyneuropathy | CPT/HCPCS: 99214 ==

== ENCOUNTER → 2022-10-22 11:00 | Outpatient (BNVA) | payer MEDICARE, MEDICAID, SELFPAY | PROVIDERS: PCP Family Medicine; Visit Provider Podiatrist Foot & Ankle Surgery | DX: E11.621 Type 2 diabetes mellitus with foot ulcer (principal); L97.512 Non-pressure chronic ulcer of other part of right foot with fat layer exposed; Z79.4 Long term (current) use of insulin; E11.42 Type 2 diabetes mellitus with diabetic polyneuropathy | CPT/HCPCS: 99214 ==

== ENCOUNTER → 2022-10-23 15:17 | Outpatient (BNVA) | payer MEDICARE, MEDICAID, SELFPAY | PROVIDERS: PCP Family Medicine; Visit Provider Family Medicine | DX: R32 Unspecified urinary incontinence (principal) | CPT/HCPCS: 81000; 87077; 87086; 87184 ==

== ENCOUNTER → 2022-11-05 10:38 | Outpatient (BNVA) | payer MEDICARE, MEDICAID, SELFPAY | PROVIDERS: PCP Family Medicine; Visit Provider Podiatrist Foot & Ankle Surgery | DX: E11.621 Type 2 diabetes mellitus with foot ulcer (principal); Z79.4 Long term (current) use of insulin; L97.512 Non-pressure chronic ulcer of other part of right foot with fat layer exposed; E11.42 Type 2 diabetes mellitus with diabetic polyneuropathy | CPT/HCPCS: 11042 ==

== ENCOUNTER → 2022-11-20 13:23 | Outpatient (BNVA) | payer MEDICARE, MEDICAID, SELFPAY | PROVIDERS: PCP Family Medicine; Visit Provider Podiatrist Foot & Ankle Surgery | DX: E11.621 Type 2 diabetes mellitus with foot ulcer (principal); Z79.4 Long term (current) use of insulin; L97.512 Non-pressure chronic ulcer of other part of right foot with fat layer exposed; E11.42 Type 2 diabetes mellitus with diabetic polyneuropathy | CPT/HCPCS: 99214 ==

== ENCOUNTER → 2022-11-21 10:03 | Outpatient (BNVA) | payer MEDICARE, MEDICAID, SELFPAY | PROVIDERS: PCP Family Medicine; Visit Provider Emergency Medicine | DX: J02.9 Acute pharyngitis, unspecified (principal) | CPT/HCPCS: 87071; 87880 ==

== ENCOUNTER 2022-11-28 08:57 | Outpatient (CLI) | payer MEDICARE, MEDICAID, SELFPAY ==
--- NOTE | 2022-11-28 09:15 | US_ITS ---
WS: [id number] TESTICULAR ULTRASOUND HISTORY: N50.811 - Right testicular pain COMPARISON: None available. TECHNIQUE: Real-time and color Doppler imaging or utilized to perform a testicular ultrasound. Right testicle: 3.5 cm x 2.6 cm x 2.6 cm. RIGHT testicle is normal size. The inferior border of the RIGHT testicle is abnormal. The surface of the inferior testicle is heterogeneous with increased vascularity. Color Doppler is present throughout the testicle although there is mild heterogeneity. Small mildly complex hydrocele. Low level echoes are present within the hydrocele. Right epididymis: Enlarged heterogeneous epididymis with increased vascularity. The entire epididymis is enlarged but most significantly involving the tail. The epididymal tail enlarged and distorted an d displacing the inferior pole of the testicle. Scrotal wall thickening on the RIGHT. Left testicle: 4.4 cm x 3.2 cm x 2.3 cm. Normal size and echogenicity. No mass or torsion. Normal color Doppler is present throughout. Systolic and diastolic velocities are both present. No significant hydrocele. Left epididymis: Normal epididymis with no increased vascularity. US/US scrotum [id number] IMPRESSION: 1. Abnormal RIGHT testicle and epididymis. There is increased vascularity thro ughout an enlarged heterogeneous epididymis. Favor posttraumatic epididymitis a nd possible associated hemorrhage. 2. Indistinctness of the inferior wall of the RIGHT testicle with adjacent inc reased vascularity and epididymitis. Suspect there may be a small area of hemor rhage and posttraumatic changes involving the inferior pole the RIGHT testicle. 3. Small RIGHT hydrocele with low-level echoes. Probably posttraumatic and may be associated hemorrhage. 4. Mild heterogeneity throughout the testicle but no evidence for torsion at t his time. 5. Recommendation: Consider consultation with urology. Also recommend short-te scrotal ultrasound follow-up in 2-3 weeks. Notified Gita Mosher at 11/28/2022 10:07 AM.
== END 2022-11-28 08:58 | disposition home or self-care (01) ==
LOC: RAD 09:03
PROVIDERS: PCP Family Medicine; Visit Provider Emergency Medicine
DX: N50.811 Right testicular pain (principal); N43.3 Hydrocele, unspecified
CPT/HCPCS: 76870

== ENCOUNTER 2022-12-01 09:34 | Emergency (ER) | payer MEDICARE, MEDICAID, SELFPAY ==
[2022-12-01 09:50] VITALS: BP 154/83; PULSE 85; RESP 16; TEMP 36.8; O2SAT 94
--- NOTE | 2022-12-01 10:15 | ED_ITS ---
HPI - Male Genitourinary General: Chief complaint: Urogenital-Male Stated complaint: testicular pain Time Seen by Provider: 12/01/22 09:56 History of Present Illness: Patient comes in with right testicular pain. States that about 8 days ago he bent over and pinched his right testicle and the top of his surgical walking boot. States that he was seen by his physician and had an ultrasound that was done 3 days ago. States that he continues to have significant pain. Associated symptoms: Reports nausea; Deny dysuria or vomiting Review of Systems Const: Denies: fever(s) or body aches Eyes: Denies: change in vision or blurry vision ENMT: Denies: throat pain or odynophagia Card: Denies: chest pain or palpitations Resp: Denies: dyspnea or productive cough GI: Reports: nausea; Denies: abdominal pain or vomiting : Reports: testicular pain; Denies: flank pain or dysuria Musc: Denies: neck pain or back pain Skin/Breast: Denies: rash or pruritus Neuro: Denies: headache(s) or numbness in extremities Psych: Denies: anxiety or change in appetite Endo: Denies: polyuria or excessive sweating PFSH ED PFSH: Medical History BPH (benign prostatic hyperplasia) CAD (coronary artery disease) Chronic steroid use COPD (chronic obstructive pulmonary disease) Diabetic neuropathy DM type 2 (diabetes mellitus, type 2) Hepatitis B Immunocompromised Surgical History Stented coronary artery Transplanted kidney Family History Other Diabetes Social History Smoking and tobacco status: former smoker Alcohol intake: never Lives independently: Yes Household members: spouse Marital status: Current occupational status: retired Physical Exam Const: COMMON NORMALS: no acute distress, patient oriented x3, healthy appearing and alert HENMT: COMMON NORMALS: normocephalic and atraumatic HEAD & SCALP: normocephalic and atraumatic Eye: COMMON NORMALS: Equal, round and reactive pupils present and EOMs intact bilaterally PUPIL: Yes Equal, round and reactive pupils present Neck/C-Spine: COMMON NORMALS: full ROM and supple Resp: COMMON NORMALS: normal respiratory effort, No retractions and No use of accessory muscles Cardio: COMMON NORMALS: regular rate and regular rhythm RATE: regular rate RHYTHM: regular rhythm GI: COMMON NORMALS: Normal to inspection, nondistended, normoactive bowel sounds present, Soft to palpation and non-tender PALPATION: Yes Soft to palpation : OTHER: right testicle feels somewhat enlarged when compared to the left however this may be the inflamed epididymis that was seen on ultrasound. He has some mild tenderness of the right testicle. Back/Pelvis: COMMON NORMALS: thoracic and lumbar spine normal to inspection and no thoracic nor lumbar tenderness Extremity: COMMON NORMALS: normal to inspection and full ROM Neuro: COMMON NORMALS: patient oriented x3 SENSORIUM/ORIENTATION: Yes alert Psych: COMMON NORMALS: mental status grossly normal and cooperative Skin: COMMON NORMALS: no rashes or lesions noted and no wounds GENERAL SKIN EXAM: no rashes or lesions noted Course Vital Signs: Vital signs: Vital Signs Temperature 98.2 F 12/01/22 09:50 Pulse Rate 85 12/01/22 09:50 Respiratory Rate 16 12/01/22 09:50 Blood Pressure 154/83 12/01/22 09:50 Pulse Oximetry 94 12/01/22 09:50 MDM - Male Medical Decision Making Patient comes in with right testicular pain. States that about 8 days ago he bent over and pinched his right testicle and the top of his surgical walking boot. States that he was seen by his physician and had an ultrasound that was done 3 days ago. States that he continues to have significant pain. On physical exam his right testicle feels somewhat enlarged when compared to the left however this may be the inflamed epididymis that was seen on ultrasound. He has some mild tenderness of the right testicle. Will consult urology, and reassess. On reassessment I talked to the patient about the ultrasound results. Dr. Zamora with urology recommend ice, coverage for possible epididymitis with antibiotics, and discharged with urology follow-up as needed. We will discharge the patient with precautions to return for worsening or changing symptoms. Discharge Plan Discharge Patient Disposition: Home Clinical Impression: Epididymitis Condition: Stable Prescriptions: New levofloxacin 250 mg tablet 250 mg PO DAILY 10 Days Qty: 10 0RF No Action amoxicillin 875 mg tablet 875 mg PO BID 10 Days Qty: 20 0RF atorvastatin 80 mg tablet 80 mg PO DAILY gabapentin 600 mg tablet 600 mg PO TID metoprolol succinate 50 mg tablet extended release 24 hr 50 mg PO DAILY hydrocodone-acetaminophen 5-325 mg tablet 1 tab PO Q6H PRN (Reason: Pain) prednisone 5 mg tablet 5 mg PO DAILY amlodipine 5 mg tablet 5 mg PO DAILY allopurinol 100 mg tablet 200 mg PO DAILY isosorbide mononitrate 60 mg tablet extended release 24 hr 60 mg PO DAILY magnesium oxide 400 mg (241.3 mg magnesium) tablet 400 mg PO BID tamsulosin 0.4 mg capsule 0.4 mg PO DAILY nitroglycerin 0.4 mg tablet, sublingual 0.4 mg sublingual Q5MIN PRN (Reason: CHEST PAIN) omeprazole 20 mg capsule,delayed release(DR/EC) 20 mg PO DAILY lisinopril 5 mg tablet 5 mg PO DAILY tacrolimus 1 mg capsule 1 mg PO BID Novolog FlexPen U-100 Insulin 100 unit/mL (3 mL) insulin pen 18 unit SUBCUT .PER SLIDING SCALE entecavir 0.5 mg tablet 0.5 mg PO DAILY MDD SEE PHARMACY COMMENT Levemir FlexTouch U-100 Insuln 100 unit/mL (3 mL) insulin pen 32 unit SUBCUT BID aspirin 81 mg Tablet,Chewable 81 mg PO DAILY Discharge Orders: Discharge ED (Routine); Ordered 12/01/22 Ordered By: Quang Brenner Referrals: Thanh Zamora MD [Physician] - Guadalupe Wick MD [Primary Care Provider] - Patient Instructions: Epididymitis Coding Level of Care Code ED Broadcast Systems Engineer for Alivia Abbott
== END 2022-12-01 10:37 | disposition home or self-care (01) ==
PROVIDERS: Emergency Provider Emergency Medicine; PCP Family Medicine
DX: N45.1 Epididymitis (principal); Z79.82 Long term (current) use of aspirin; Z79.4 Long term (current) use of insulin; I25.10 Atherosclerotic heart disease of native coronary artery without angina pectoris; J44.9 Chronic obstructive pulmonary disease, unspecified; E11.9 Type 2 diabetes mellitus without complications; Z86.19 Personal history of other infectious and parasitic diseases; Z94.0 Kidney transplant status; Z87.891 Personal history of nicotine dependence; N40.0 Benign prostatic hyperplasia without lower urinary tract symptoms
CPT/HCPCS: 99283

== ENCOUNTER → 2022-12-24 10:10 | Outpatient (BNVA) | payer MEDICARE, MEDICAID, SELFPAY | PROVIDERS: PCP Family Medicine; Visit Provider Podiatrist Foot & Ankle Surgery | DX: E11.621 Type 2 diabetes mellitus with foot ulcer (principal); L97.512 Non-pressure chronic ulcer of other part of right foot with fat layer exposed; E11.42 Type 2 diabetes mellitus with diabetic polyneuropathy; Z79.84 Long term (current) use of oral hypoglycemic drugs | CPT/HCPCS: 99214 ==

== ENCOUNTER → 2023-01-21 08:50 | Outpatient (BNVA) | payer MEDICARE, MEDICAID, SELFPAY | PROVIDERS: PCP Family Medicine; Visit Provider Podiatrist Foot & Ankle Surgery | DX: E11.42 Type 2 diabetes mellitus with diabetic polyneuropathy (principal); Z79.4 Long term (current) use of insulin; Z09 Encounter for follow-up examination after completed treatment for conditions other than malignant neoplasm | CPT/HCPCS: 99213 ==

== ENCOUNTER 2023-03-05 12:01 | Observation (INO) | payer MEDICARE, MEDICAID, SELFPAY ==
[2023-03-05] VITALS (15 sets, daily range): BP systolic 149–192; BP diastolic 70–122; PULSE 75–97; RESP 12–18; TEMP 36.5; O2SAT 90–95; BMI 34.0
--- NOTE | 2023-03-05 12:19 | ED_ITS ---
HPI - General Adult General: Chief complaint: General Medical Stated complaint: [facility] sent/arm pain/chest pressure Time Seen by Provider: 03/05/23 12:19 History of Present Illness: Mr. Mendoza is a 67-year-old gentleman with complex past medical history including renal transplant on chronic immunosuppression, CAD with history of stents presenting to the emergency department due to concern over abnormal imaging and exertional dyspnea/chest pain. He reports intermittent rare symptoms approximately 6 months ago which have been progressively worsening. He describes left arm numbness and tingling associated with chest pressure with exertion. He also has marked decrease in exertional tolerance. He had a x-ray performed for dental which noted some carotid artery calcifications and was concern over blockages. It is somewhat unclear though he does intermittently have loss of dexterity and numb feeling in his fingers however this is sometimes related more to the chest pain and he is unsure of any other strokelike symptoms. He does report that this feels similar to prior MIs. Overall course of symptoms has worsened in frequency and intensity. Intensity is moderate to s evere. No other specific changes in health, exacerbating, or alleviating factors identified. Onset (ago): month(s) Location: chest, left and upper extremity Severity: moderate Quality: aching and constant Pain Consistency: constant Relieving factors: none Exacerbating factors: other (Exertion) Associated symptoms: Reports chest pain, malaise, short of breath and other Review of Systems General: Reports: 10 or more systems reviewed and unremarkable except in HPI and below Const: Reports: malaise Card: Reports: chest pain [facility] ED PFSH: Medical History (Updated 03/05/23 @ 20:32 by Nitin Calhoun MD) BPH (benign prostatic hyperplasia) CAD (coronary artery disease) Chronic steroid use COPD (chronic obstructive pulmonary disease) Diabetic neuropathy DM type 2 (diabetes mellitus, type 2) Hepatitis B Immunocompromised Surgical History (Updated 03/05/23 @ 20:32 by Nitin Calhoun MD) Stented coronary artery Transplanted kidney Family History Other Diabetes Social History Smoking and tobacco status: former smoker Alcohol intake: never Substance/Drug Use: former Lives independently: Yes Household members: spouse Marital status: Current occupational status: retired Physical Exam Const: COMMON NORMALS: alert GENERAL APPEARANCE: cooperative and well developed HENMT: COMMON NORMALS: normocephalic and atraumatic HEAD & SCALP: normocephalic and atraumatic Eye: COMMON NORMALS: conjunctivae normal CONJUNCTIVA: Yes conjunctivae normal SCLERA: sclerae normal Neck/C-Spine: COMMON NORMALS: supple GENERAL: Yes trachea midline Resp: COMMON NORMALS: clear to auscultation bilaterally EFFORT & INSPECTION: Yes able to speak in complete sentences AUSCULTATION: clear to auscultation bilaterally Cardio: COMMON NORMALS: regular rate and regular rhythm RATE: regular rate RHYTHM: regular rhythm OTHER: 1+ symmetric bilateral radial pulses, CMS intact GI: COMMON NORMALS: Soft to palpation PALPATION: Yes Soft to palpation and No Tenderness to palpation present (GI) Extremity: GENERAL: Yes normal exam except as noted and No edema Neuro: COMMON NORMALS: moves all extremities SENSORIUM/ORIENTATION: Yes alert and No Orientation impaired Psych: COMMON NORMALS: mental status grossly normal and Normal thought process present THOUGHT PROCESS: Normal thought process present Course Vital Signs: Vital signs: Vital Signs Temperature 97.7 F 03/05/23 12:06 Pulse Rate 86 03/05/23 18:38 Respiratory Rate 17 03/05/23 18:38 Blood Pressure 155/99 03/05/23 18:38 Pulse Oximetry 94 03/05/23 16:30 Oxygen Delivery Me thod Room Air 03/05/23 18:38 MDM - General Adult Medical Decision Making 67-year-old gentleman presenting to the emergency department for concern over progressively worsening chest pain as well as abnormal imaging findings on x-ray having to do with the carotid arteries and intermittent left upper extremity tingling/weakness. No focal neurologic deficits appreciated on exam and he is nontoxic in appearance. EKG demonstrates sinus rhythm with borderline right axis deviation, normal intervals, no STEMI. Labs with no significant hematologic abnormality. Metabolic panel with preserved renal function though there is some electrolyte derangement, sodium is mildly low with a spurious component, potassium 5.5, no peaked T waves identified on chest x-ray. Negative range 2-hour delta troponin. Urinalysis concerning for urinary tract infection in the context of transplanted kidney and immunosuppression. Rocephin ordered. Additionally patient treated with IV fluids and aspirin during ED course. Chest x-ray with no lobar consolidation or pneumothorax. Most likely due cause of patient's symptoms is unclear. He is not low risk by heart score. Given electrolyte abnormalities as well as urinary tract infection patient requires inpatient observation for evaluation of both. Additionally he may require evaluation of abnormal appearance of carotid arteries with calcifications on x-ray given somewhat unclear transient neurologic symptoms. The results of ED evaluation were discussed with the patient including plan for admission due to requirement for level of care not available if discharged to prevent significant worsening/deterioration. Patient agreeable with plan. Discussed with hospitalist service who was agreeable to admit patient. Medical Records I reviewed the patient's medical records. Lab Data I reviewed the patient's lab results. 03/05/23 13:18 03/05/23 13:18 Radiology Impressions Chest X-Ray 03/05/23 12:27 Impression: Atherosclerosis. Laboratory Results WBC 8.8 10^3/uL (4.0-10.0) 03/05/23 13:18 RBC 5.43 10^6/uL (4.1-5.3) H 03/05/23 13:18 Hgb 13.4 g/dL (11.7-16.6) 03/05/23 13:18 Hct 45.5 % (42.0-52.0) 03/05/23 13:18 MCV 83.8 fl (80-94) 03/05/23 13:18 MCH 24.7 pg (28.0-34.0) L 03/05/23 13:18 MCHC 29.5 g/dL (30.0-36.0) L 03/05/23 13:18 RDW 18.0 % (12.1-15.1) H 03/05/23 13:18 Plt Count 255 10^3/cmm (130-400) 03/05/23 13:18 MPV 11.2 fL (7.4-10.4) H 03/05/23 13:18 Neut % (Auto) 73.5 % 03/05/23 13:18 Lymph % (Auto) 15.3 % 03/05/23 13:18 [place] % (Auto) 7.5 % 03/05/23 13:18 Eos % (Auto) 1.3 % 03/05/23 13:18 Baso % (Auto) 0.5 % 03/05/23 13:18 Neut # (Auto) 6.47 10^3/uL (1.8-7.7) 03/05/23 13:18 Lymph # (Auto) 1.4 10^3/uL (0.8-4.8) 03/05/23 13:18 [place] # (Auto) 0.7 10^3/uL (0.2-0.9) 03/05/23 13:18 Eos # (Auto) 0.1 10^3/uL (0.0-0.8) 03/05/23 13:18 Baso # (Auto) 0.0 10^3/uL (0.0-0.1) 03/05/23 13:18 Nucleated RBC % (auto) 0 % 03/05/23 13:18 Nucleated RBCs # 0.0 /100WBC 03/05/23 13:18 Sodium 129 mmol/L (136-145) L 03/05/23 13:18 Potassium 5.5 mmol/L (3.5-5.1) H 03/05/23 13:18 Chloride 96 mmol/L (98-107) L 03/05/23 13:18 Carbon Dioxide 21 mmol/L (22-29) L 03/05/23 13:18 Anion Gap 17.5 (5-19) 03/05/23 13:18 BUN 21 mg/dL (8-23) 03/05/23 13:18 Creatinine 1.2 mg/dL (0.7-1.2) 03/05/23 13:18 GFR Calculation 60.4 mL/min (90-130) L 03/05/23 13:18 Glucose 382 mg/dL (65-115) H 03/05/23 13:18 Estimat Average Glucose 249 03/05/23 13:18 Hemoglobin A1c 10.3 % (4.0-6.0) H 03/05/23 13:18 Calculated Osmolality 287 mOsm/kg (285-295) 03/05/23 13:18 Lactic Acid 1.7 mmol/L (0.5-2.2) 03/05/23 14:07 Calcium 9.3 mg/dL (8.5-10.5) 03/05/23 13:18 Total Bilirubin 0.5 mg/dL (0.15-1.2) 03/05/23 13:18 AST 16 U/L (0-40) 03/05/23 13:18 ALT 13 U/L (0-41) 03/05/23 13:18 Alkaline Phosphatase 132 U/L (40-130) H 03/05/23 13:18 Troponin T Baseline 9 ng/L (0-15) 03/05/23 13:18 Troponin T 120 Minute 8.41 ng/L (0-15) 03/05/23 14:55 Delta Troponin T -0.59 ABS# (0-10) L 03/05/23 14:55 NT-Pro-B Natriuret Pep 72 pg/mL (0-125) 03/05/23 13:18 Total Protein 7.5 g/dL (6.6-8.7) 03/05/23 13:18 Albumin 3.9 g/dL (3.5-5.2) 03/05/23 13:18 Globulin 3.6 g/dL (1.3-4.6) 03/05/23 13:18 Triglycerides 154 mg/dL (0-150) H 03/05/23 13:18 Cholesterol 86 mg/dL (0-200) 03/05/23 13:18 LDL Cholesterol, Calc 22 mg/dL (50-129) L 03/05/23 13:18 HDL Cholesterol 33 mg/dL (60-100) L 03/05/23 13:18 LDL/HDL Ratio 0.67 RATIO (0.00-3.22) 03/05/23 13:18 Cholesterol/HDL Ratio 2.61 mg/dL (1.0-5.00) 03/05/23 13:18 Procalcitonin 0.07 ng/mL (0-0.5) 03/05/23 14:55 TSH 1.33 uIU/mL (0.27-4.20) 03/05/23 13:18 Urine Color Yellow (Yellow) 03/05/23 13:03 Urine Appearance Cloudy (CLEAR) A 03/05/23 13:03 Urine pH 6 (5-7) 03/05/23 13:03 Ur Specific [place] 1.015 (1.005-1.030) 03/05/23 13:03 Urine Protein Neg (Negative) 03/05/23 13:03 Urine Glucose (UA) 4+ (Normal) H 03/05/23 13:03 Urine Ketones Negative (Negative) 03/05/23 13:03 Urine Blood 2+ (Negative) H 03/05/23 13:03 Urine Nitrate Negative (Negative) 03/05/23 13:03 Urine Bilirubin Neg (Negative) 03/05/23 13:03 Urine Urobilinogen Norm mg/dL (Negative) 03/05/23 13:03 Ur Leukocyte Esterase 2+ (Negative) H 03/05/23 13:03 Urine RBC 0-4 /hpf (0-2) H 03/05/23 13:03 Urine WBC Too numerous to cnt /hpf (0-5) H 03/05/23 13:03 Ur Squamous Epith Cells 0-4 /hpf (0-5) H 03/05/23 13:03 Amorphous Sediment Not Reportable 03/05/23 13:03 Urine Bacteria 3+ /hpf (NONE) H 03/05/23 13:03 Discharge Plan Discharge Patient Disposition: Admitted As Inpatient Admit Provider: Garcia Baker Clinical Impression: Chest pain, Hyperkalemia, History of kidney transplant, Complicated urinary tract infection Condition: Stable Coding Level of Care Code ED Manager Of Compliance for Alivia Abbott
--- NOTE | 2023-03-05 12:27 | XR_ITS ---
WS: [id number] Portable AP upright chest, 03/05/2023 Clinical Data: dyspnea, cp Comparison: None. Findings: No nodules, masses or effusions are seen. The heart is normal. The pulmonary vascularity is not increased. No pneumonia or pneumothorax is seen. The descending thoracic aorta shows mild tortuo sity. Monitor leads are on the chest wall. XR/XR chest 1V portable [id number] Impression: Atherosclerosis.
--- NOTE | 2023-03-05 12:27 | ECG_ITS ---
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 Measurements Intervals [place] Rate: 81 P: 60 WI: 160 QRS: 106 QRSD: 80 T: 101 QT: 329 QTc: 383 Interpretive Statements SINUS RHYTHM RIGHT AXIS DEVIATION [QRS AXIS > 100] No previous ECG available for comparison Electronically Signed On 03-07-2023 6:09:24 CDT by Lauren Diez M.D. [id number] f
[2023-03-05] MEDS: aspirin 81 mg Chew Tablet 324 MG PO (12:56)
--- NOTE | 2023-03-05 13:07 | PC.NURSE ---
TURNED OVER CARE AT 1307 TO CARLY ESTRADA
[2023-03-05 13:26] LABS: Protein Urine Neg (Negative); Specific Gravity, Urine 1.015 (1.005-1.030); Urine Appearance Cloudy (CLEAR); Urine Color Yellow (Yellow); pH Urine 6 (5-7)
[2023-03-05 13:27] LABS: Add Urine Microscopic? YES; Bilirubin Urine Neg (Negative); Blood Urine 2+ (Negative); Glucose Urine UA 4+ (Normal); Ketones Urine Negative (Negative); Leukocyte Esterase Urine 2+ (Negative); Nitrate Urine Negative (Negative); Urobilinogen Urine Norm (Negative)
[2023-03-05 13:28] LABS: Add Urine Culture? Yes; Bacteria Urine 3+ /hpf; RBC Urine 0-4 /hpf (0-2); Squamous Epithelial Cell Urine 0-4 /hpf (0-5); WBC Urine TOO NUMEROUS TO CNT /hpf (0-5)
[2023-03-05 13:28] LABS: Basophils % 0.5 %; Eosinophils # 0.1 10^3/uL (0.0-0.8); Eosinophils % 1.3 %; Hematocrit 45.5 % (42.0-52.0); Hemoglobin 13.4 g/dL (11.7-16.6); Lymphocytes # 1.4 10^3/uL (0.8-4.8); Lymphocytes % 15.3 %; Mean Corpuscular HGB Conc 29.5 g/dL (30.0-36.0); Mean Corpuscular Hemoglobin 24.7 pg (28.0-34.0); Mean Corpuscular Volume 83.8 fl (80-94); Mean Platelet Volume 11.2 fL (7.4-10.4); Monocytes # 0.7 10^3/uL (0.2-0.9); Monocytes % 7.5 %; Neutrophils # 6.47 10^3/uL (1.8-7.7); Neutrophils % 73.5 %; Nucleated Red Blood Cells % 0 %; Platelet Count 255 10^3/cmm (130-400); Red Blood Count 5.43 10^6/uL (4.1-5.3); White Blood Count 8.8 10^3/uL (4.0-10.0)
[2023-03-05 13:50] LABS: Troponin(5th) Baseline 9 ng/L (0-15)
[2023-03-05 13:55] LABS: Alanine Aminotransferase 13 U/L (0-41); Albumin Level 3.9 g/dL (3.5-5.2); Alkaline Phosphatase 132 U/L (40-130); Anion Gap 17.5 (5-19); Aspartate Amino Transferase 16 U/L (0-40); Blood Urea Nitrogen 21 mg/dL (8-23); Calcium 9.3 mg/dL (8.5-10.5); Carbon Dioxide 21 mmol/L (22-29); Chloride 96 mmol/L (98-107); Globulin 3.6 g/dL (1.3-4.6); Glomerular Filtration Rate 60.4 mL/min (90-130); Glucose 382 mg/dL (65-115); NT Pro B Type Natriuretic Pept 72 pg/mL (0-125); Osmolality Calculated 287 mOsm/kg (285-295); Potassium 5.5 mmol/L (3.5-5.1); Sodium 129 mmol/L (136-145); Total Bilirubin 0.5 mg/dL (0.15-1.2); Total Protein 7.5 g/dL (6.6-8.7)
--- NOTE | 2023-03-05 14:33 | PC.NURSE ---
Pt hooked up to continuous bedside coin teller.
--- NOTE | 2023-03-05 14:34 | ECG_ITS ---
[facility] Test Date: 2023-03-05 Pat Name: Jesús Mendoza Department: Room: Gender: Male Pbx Operator: : 1955 Requested By: Nitin Calhoun Order Number: [id number] Flores MD: Lauren Diez M.D. Measurements Intervals [place] Rate: 74 P: 6 MD: 169 QRS: 81 QRSD: 93 T: 89 QT: 350 QTc: 389 Interpretive Statements SINUS RHYTHM Compared to ECG 03/05/2023 12:20:54 Right-axis deviation no longer present Electronically Signed On 03-07-2023 6:55:22 CDT by Lauren Diez M.D. [id number]
[2023-03-05] MEDS: sodium chloride 0.9% 1,000 ML 999 ML IV (14:55)
[2023-03-05 15:30] LABS: Troponin 5 2HR 8.41 ng/L (0-15)
[2023-03-05 15:46] LABS: Troponin 5 2HR Delta -0.59 ABS# (0-10)
--- NOTE | 2023-03-05 16:27 | US_ITS ---
WS: [id number] RENAL ULTRASOUND HISTORY: uti/pyelonephritis COMPARISON: No similar studies. TECHNIQUE: 2-D and color Doppler imaging of the kidney submitted. Patient has a renal transplant in the RIGHT pelvis. Transplant measures 8.8 cm in length. There is no hydronephrosis. No perinephric fluid collection. Cortex is normal at 1.4 cm. Overall the echogenicit y is stable. Few images of color Doppler submitted which demonstrates normal flow to the kidney. Urinary bladder was not imaged. US/US renal BI* [id number] IMPRESSION: Normal appearance of the transplanted kidney in the RIGHT pelvis. No obstructio n, hydronephrosis or inflammation.
--- NOTE | 2023-03-05 16:27 | USCV_ITS ---
Jesús Mendoza Age: 67 Gender: M : 1955 Exam Date: 03/05/2023 18:17 Ordering Phys: Garcia Baker MD Technologist: ADAM Exam Location: [facility] [place] Indication: LEFT hand / finger paresthesia. IDDM x 6 years. quit smoking 2006. Risk Factors: LEFT hand / finger paresthesia. IDDM x 6 years. quit smoking 2006. Previous Vascular Surgery: None Right Brachial BP: 165 / 112 Left Brachial BP: / Right Left Velocity (cm/s) Spectral Plaque Velocity (cm/s) Spectral Plaque Syst/Diast Broadening Syst/Diast Broadening 67.00/ 9.40 None None Prox CCA 99.90 / 13.10 None None 87.10/ 15.40 None Homo Mid CCA 57.50 / 14.80 None Homo 58.40/ 15.40 Min Homo Distal CCA 61.40 / 14.00 Min Homo 55.50/ 12.00 Min Eric Prox ICA 50.20 / 12.80 Min Eric 53.90/ 16.40 Min Hetro Mid ICA 64.70 / 21.10 Min Hetro 53.90/ 18.40 Min Homo Distal ICA 67.10 / 27.20 Min Homo 79.50 Min Hetro ECA 91.70 Min Hetro 0.64 ICA/CCA 0.67 Antegrade Vertebral Antegrade 37.50/ 13.80 cm/s 32.20/ 9.20 cm/s Tri Subclavian Tri 57.20 59.20 FINDINGS Comparison: none available. No significant elevation of systolic or diastolic velocities. Waveforms are normal. Mild bilateral scattered calcified plaque throughout the carotid bifurcations. Antegrade vertebral arteries. CONCLUSIONS Bilateral ICA stenosis less than 50%. Mild carotid atherosclerosis. Dr. Nubia Campa DO (Electronically Signed) Final Date: 06 Mar 2023 07:31 S
--- NOTE | 2023-03-05 16:27 | USCV_ITS ---
Jesús Mendoza Age: 67 Gender: M : 1955 Exam Date: 03/05/2023 18:58 Ordering Phys: Garcia Baker MD Technologist: ADAM Exam Location: [facility] [place] Indication: chest pain, SOB, history CAD s/p cardiac stenting 2012, 2014. BP: 165 / 112 HR: 84 Rhythm: Sinus Technical Quality: Adequate MEASUREMENTS (Male / Female) Normal Values 2D ECHO LV Diastolic Diameter PLAX 4.4 cm 4.2 - 5.9 / 3.9 - 5.3 cm LV Systolic Diameter PLAX 2.9 cm IVS Diastolic Thickness 1.3 cm 0.6 - 1.0 / 0.6 - 0.9 cm IVS Systolic Thickness 1.5 cm LVPW Diastolic Thickness 1.4 cm 0.6 - 1.0 / 0.6 - 0.9 cm LVPW Systolic Thickness 1.7 cm LVOT Diameter 1.9 cm LV Ejection Fraction 2D Teich 61.5 % LV Ejection Fraction MOD 2C 71.2 % LV Ejection Fraction 2C AL 71.6 % LA Diameter 4.4 cm LA Width 4.2 cm LA Height 5.9 cm RA Width 2.9 cm RA Height 4.2 cm Aorta at Sinotubular Diameter 2.9 cm IVC Diameter 2.0 cm M-MODE Aortic Annulus Diameter 3.0 cm LA Ao Ratio MM 1.6 MV E Point Septal Separation 0.5 cm DOPPLER AV Peak Velocity 155.0 cm/s LVOT Peak Velocity 106.0 cm/s AV Area Cont Eq vti 1.7 cm squared AV Area Cont Eq pk 1.9 cm squared MV Peak Velocity 165.0 cm/s MV Area PHT 4.0 cm squared Mitral E to A Ratio 0.6 MV E' Velocity 31.0 cm/s Mitral E to MV E' Ratio 10.3 Mitral E to LV E' Lateral Ratio 10.4 Mitral E to LV E' Septal Ratio 10.1 PV Peak Velocity 93.0 cm/s RV Acceleration Time 0.1 s RV Ejection Time 0.3 s RV AcT/ET 0.2 FINDINGS Left Ventricle Normal left ventricular size, systolic function and wall thickness, with no regional wall motion abnormalities. Left ventricular ejection fraction is estimated at 65 %. Grade I diastolic dysfunction (abnormal relaxation filling pattern), normal to mildly elevated filling pressures. Right Ventricle Normal right ventricular size and systolic function. RVSP could not be calculated due to incomplete tricuspid regurgitation velocity profile. Right Atrium Normal right atrial size. Left Atrium Normal left atrial size. Mitral Valve Structurally normal mitral valve. No mitral valve stenosis. No mitral valve regurgitation. Aortic Valve Structurally normal trileaflet aortic valve. No aortic valve stenosis. No aortic valve regurgitation. Tricuspid Valve Structurally normal tricuspid valve. No tricuspid valve stenosis. Trace tricuspid valve regurgitation. Pulmonic Valve Structurally normal pulmonic valve. No pulmonary valve stenosis. No significant pulmonary valve regurgitation. Pericardium No pericardial effusion. Aorta Normal size aortic root and proximal ascending aorta. IVC Normal IVC dimension with >50% respiratory change of the inferior vena cava. CONCLUSIONS 1. Normal left ventricular size, systolic function and wall thickness, with no regional wall motion abnormalities. Left ventricular ejection fraction is estimated at 65 %. Grade I diastolic dysfunction (abnormal relaxation filling pattern), normal to mildly elevated filling pressures. 2. No prio similar studies to compare. Lauren Diez MD (Electronically Signed) Final Date: 06 Mar 2023 12:31 S
--- NOTE | 2023-03-05 16:28 | PM.HP ---
Providers/Chief Complaint Primary Care Provider: Guadalupe Wick MD Chief Complaint: [facility] sent/arm pain/chest pressure History of Present Illness Jesús Mendoza is a 67 year old male with a past medical history of insulin-dependent type 2 diabetes mellitus, diabetic peripheral neuropathy, hypertension, hyperlipidemia, CAD, history of emphysema, history of kidney transplantation, for diabetic nephropathy, who presents to [facility] due to multiple complaints Patient tells me that he saw his dentist, was going in for a dental filling, when he had an x-ray done, the dentist went back and looked at the x-ray multiple times he was worried about calcification in his carotid arteries, he has been complaining of paresthesias in both hands, no facial droop no slurring of his words, no paresthesias anywhere else no focal weakness, he does tell me recently been more unsteady on his feet, no falls, no injuries, he does have neuropathy of his feet so the dentist was quite worried and told him to have this immediately evaluated to come to the emergency room he is never had a stroke but roughly 6 months ago he did go to [facility] and he was told that he potentially had a TIA, 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 He also reports intermittent chest pain, left-sided, he is not sure if it is in his chest or in his shoulder, but does report increased shortness of breath with exertion, he has had stents placed he tells me, no nausea, no vomiting, diaphoresis, Does report increased lightheadedness, unsteadiness on his feet, he has been peeing more, his blood sugars are controlled he tells me his average blood sugars are in the 250s, his urine does have a foul odor to it he tells me Review of Systems Const: Denies: fever(s) or chills Eyes: Denies: change in vision Card: Denies: chest pain Resp: Reports: dyspnea GI: Denies: abdominal pain, nausea or vomiting : Denies: flank pain or difficulty urinating Musc: Denies: back pain Skin/Breast: Denies: rash Neuro: Reports: numbness in extremities and dizziness; Denies: headache(s), weakness in extremities, difficulty walking, frequent falls, confusion, Slurred speech present, difficulty communicating thoughts or seizure-like activity Psych: Denies: anxiety Endo: Reports: polyuria; Denies: polydipsia Magen/Lymph: Denies: easy bruising Medications/Allergies Home Medications Medication Instructions Recorded Confirmed Last Taken Type allopurinol 100 mg tablet 200 mg PO DAILY 09/29/21 03/05/23 03/05/23 History amlodipine 5 mg tablet 5 mg PO DAILY 09/29/21 03/05/23 03/05/23 History aspirin 81 mg chewable tablet 81 mg PO DAILY 09/29/21 03/05/23 03/05/23 History atorvastatin 80 mg tablet 80 mg PO DAILY 09/29/21 03/05/23 03/05/23 History entecavir 0.5 mg tablet 0.5 mg PO DAILY 09/29/21 03/05/23 03/05/23 History gabapentin 600 mg tablet 600 mg PO TID 09/29/21 03/05/23 03/05/23 History hydrocodone 5 mg-acetaminophen 325 1 tab PO Q6H PRN Pain 09/29/21 03/05/23 03/05/23 History mg tablet isosorbide mononitrate 60 mg 60 mg PO DAILY 09/29/21 03/05/23 03/05/23 History tablet,extended release 24 hr magnesium oxide 400 mg (241.3 mg 400 mg PO BID 09/29/21 03/05/23 03/05/23 History magnesium) tablet metoprolol succinate 50 mg 50 mg PO DAILY 09/29/21 03/05/23 03/05/23 History tablet,extended release 24 hr nitroglycerin 0.4 mg sublingual 0.4 mg sublingual Q5MIN PRN CHEST 09/29/21 03/05/23 Unknown History tablet PAIN omeprazole 20 mg capsule,delayed 20 mg PO DAILY 09/29/21 03/05/23 03/05/23 History release tacrolimus 1 mg capsule, 1 mg PO BID 09/29/21 03/05/23 03/05/23 History immediate-release tamsulosin 0.4 mg capsule 0.4 mg PO DAILY 09/29/21 03/05/23 03/05/23 History albuterol sulfate 90 mcg/actuation 2 puff inhalation Q6H PRN 01/10/23 03/05/23 Unknown Rx aerosol inhaler shortness of breath or wheezing #8.5 grams insulin lispro 200 unit/mL (3 mL) 26 unit (0.13 mL) SUBCUT TID #6 mL 01/22/23 03/05/23 03/05/23 Rx subcutaneous pen (Humalog KwikPen U-200 Insulin) cholecalciferol (vitamin D3) 25 25 mcg PO DAILY 03/05/23 03/05/23 03/05/23 History mcg (1,000 unit) tablet (Vitamin D3) insulin detemir U-100 100 unit/mL 60 unit SUBCUT BID 03/05/23 03/05/23 03/05/23 History (3 mL) subcutaneous pen (Levemir FlexTouch U-100 Insulin) Allergies Allergy/AdvReac Type Severity Reaction Status Date / Time No Known Allergies Allergy Verified 03/05/23 10:41 PFSH Acute PFSH: Medical History (Updated 03/05/23 @ 16:38 by Garcia Baker MD) BPH (benign prostatic hyperplasia) CAD (coronary artery disease) Chronic steroid use COPD (chronic obstructive pulmonary disease) Diabetic neuropathy DM type 2 (diabetes mellitus, type 2) Hepatitis B Immunocompromised Surgical History (Updated 03/05/23 @ 16:38 by Garcia Baker MD) Stented coronary artery Transplanted kidney Family History Other Diabetes Social History Smoking and tobacco status: former smoker Alcohol intake: never Substance/Drug Use: former Lives independently: Yes Household members: spouse Marital status: Current occupational status: retired Vitals/I&O/Wt Last Vital Signs Temp 97.7 F 03/05/23 12:06 Pulse 75 03/05/23 15:00 Resp 12 03/05/23 15:00 BP 159/81 03/05/23 15:30 Pulse Ox 90 03/05/23 15:00 O2 Del Method Room Air 03/05/23 12:42 Physical Exam Const: COMMON NORMALS: no acute distress and patient oriented x3 GENERAL APPEARANCE: cooperative, well kempt and well developed HENMT: COMMON NORMALS: normocephalic, Normal external nose present and oropharynx normal HEAD & SCALP: normocephalic Eye: COMMON NORMALS: Equal, round and reactive pupils present, EOMs intact bilaterally, conjunctivae normal and no scleral icterus CONJUNCTIVA: Yes conjunctivae normal PUPIL: Yes Equal, round and reactive pupils present Neck/C-Spine: COMMON NORMALS: full ROM, no lymphadenopathy, no JVD, Thyroid normal and No carotid bruits Lymph: LYMPHATIC: no lymphadenopathy noted Chest: COMMONS NORMALS: normal inspection of the chest Resp: COMMON NORMALS: normal respiratory effort, No retractions, No use of accessory muscles and clear to auscultation bilaterally AUSCULTATION: clear to auscultation bilaterally Cardio: COMMON NORMALS: regular rate, regular rhythm, S1 normal heart sound present, S2 normal heart sound present, No murmurs present (Cardio) and Peripheral pulses 2+ throughout RATE: regular rate RHYTHM: regular rhythm HEART SOUNDS: S1 normal heart sound present and S2 normal heart sound present PERIPHERAL PULSES: Peripheral pulses 2+ throughout GI: COMMON NORMALS: Normal to inspection, nondistended, normoactive bowel sounds present, Soft to palpation and non-tender PALPATION: Yes Soft to palpation : BLADDER/KIDNEY EXAM: Yes no CVA tenderness Back/Pelvis: COMMON NORMALS: no CVA tenderness Extremity: COMMON NORMALS: normal to inspection, full ROM, capillary refill normal, no calf tenderness and no pedal edema Neuro: COMMON NORMALS: patient oriented x3, CN's II-XII intact bilaterally, moves all extremities, no focal motor deficits and no sensory deficits noted Psych: COMMON NORMALS: mental status grossly normal, Normal thought process present, cooperative and speech normal APPEARANCE: Yes well kempt SPEECH: Yes normal speech THOUGHT PROCESS: Normal thought process present Skin: COMMON NORMALS: turgor normal and no jaundice GENERAL SKIN EXAM: turgor normal Data 03/05/23 13:18 03/05/23 13:18 Micro: Microbiology 03/05/23 16:07 Blood Culture - Preliminary Blood SPECIMEN COLLECTED CXR: My impression: No acute infiltrates EKG 1: My Interpretation: No acute ST-T wave changes Other data: Reviewed blood work showing pseudohyponatremia, hyperkalemia, GFR of 60, troponin baseline 9, UA with evidence UTI A&P Assessment and plan (1) Urinary tract infection: (2) Hyponatremia: (3) Hyperkalemia: (4) Chest pain: (5) Paresthesias: (6) History of kidney transplant: (7) Immunocompromised: (8) Goals of care, counseling/discussion: Plan Chest pain -Serial EKGs, serial troponins, telemetry monitoring -Continue aspirin, statin -Cardiac echo -Monitor for recurrent chest pain -Nitro as needed for chest pain Paresthesias -Current NIH stroke scale 0 -We will do CT of the head -Carotid ultrasound -Neurochecks, aspiration precautions, night stroke scale Urinary tract infection with a history of recurrent E. coli UTI, immunocompromise state -Renal ultrasound -Follow urine cultures, blood cultures -Continue Rocephin Pseudohyponatremia from hyperglycemia monitor Hyperglycemia with type 2 diabetes mellitus -Decrease home Levemir to 50 units twice daily -High-dose insulin sliding scale Immunocompromise state History of transplanted kidney Hyperkalemia, will give 1 dose of Kayexalate, will receive insulin, EKG no peaked T waves, telemetry monitoring, no chest pain complaints currently Goals of care discussion, patient is a full code Lovenox for DVT prophylaxis Attestations Medical Necessity Statement*: Patient, forPatient requires hospitalization, outpatient with observation, chest pain, paresthesias, dizziness, UTI, history of immunocompromise state, history of kidney transplant, hyperglycemia Coding Level of Care Code Acute Code for Chg Fwd Diagnoses Urinary tract infection N39.0 Hyponatremia E87.1 Hyperkalemia E87.5 Chest pain R07.9 Paresthesias R20.2 History of kidney transplant Z94.0 Immunocompromised D84.9 Goals of care, counseling/discussion Z71.89
--- NOTE | 2023-03-05 16:31 | CTR_ITS ---
PROCEDURE INFORMATION: Exam: CT Head Without Contrast Exam date and time: 03/05/2023 8:39 PM Age: 67 years old Clinical indication: Other: Paresthesia TECHNIQUE: Imaging protocol: Computed tomography of the head without contrast. Radiation optimization: All CT scans at this facility use at least one of these dose optimization techniques: automated exposure control; mA and/or kV adjustment per patient size (includes targeted exams where dose is matched to clinical indication); or iterative reconstruction. REPORTING DATA: Count of CT and Cardiac NM exams in prior 12 months: This patient has received 0 known CTs and 0 known cardiac nuclear medicine studies in the 12 months prior to the current study. COMPARISON: No relevant prior studies available. RADIATION DOSE METRICS: Total DLP (mGy-cm): 1188.08 FINDINGS: Brain: No acute infarct. No hemorrhage. Mild involutional changes of the brain, commensurate with age. No mass effect. Cerebral ventricles: No ventriculomegaly. Paranasal sinuses: Visualized sinuses are unremarkable. No fluid levels. Mastoid air cells: Visualized mastoid air cells are well aerated. Bones/joints: Unremarkable. No acute fracture. Soft tissues: Unremarkable. CT/CT head wo con* [id number] IMPRESSION: No acute intracranial abnormality.
[2023-03-05 17:02] LABS: Lactic Sepsis W/Reflex 1.7 mmol/L (0.5-2.2)
[2023-03-05 17:09] LABS: Procalcitonin 0.07 ng/mL (0-0.5)
[2023-03-05 17:18] LABS: Glucose Point of Care 250 mg/dL (70-110)
[2023-03-05] MEDS: cefTRIAXone 1,000 MG in sodium chloride 0.9% (plus) 50 ML 100 MG IV (17:30)
[2023-03-05] MEDS: pantoprazole 40 mg SDV IVP (17:35)
[2023-03-05] MEDS: enoxaparin 40 mg/0.4 mL Syringe SUBCUT (17:35)
[2023-03-05] MEDS: insulin lispro 100 unit/1 mL SUBCUT (17:37)
[2023-03-05] MEDS: sodium polystyrene sulfonate 15 gm/60 mL Btl PO (17:37)
[2023-03-05] MEDS: HYDROcodone-acetaminophen 5-325 mg Tablet 1 TAB PO (17:38)
[2023-03-05] MEDS: magnesium oxide 400 mg tablet PO (17:38)
[2023-03-05] MEDS: sodium chloride 0.9% 1,000 ML 50 ML IV (18:00)
[2023-03-05] MEDS: insulin glargine 100 units/1 mL 50 UNIT SUBCUT (18:18)
[2023-03-05] MEDS: tacrolimus 0.5 mg Capsule 1 MG PO (18:18)
[2023-03-05 18:25] LABS: Chol HDL Ratio 2.61 mg/dL (1.0-5.00); Cholesterol 86 mg/dL (0-200); HDL Cholesterol 33 mg/dL (60-100); LDL Cholesterol Calculated 22 mg/dL (50-129); LDL HDL Ratio 0.67 RATIO (0.00-3.22); Thyroid Stimulating Hormone 1.33 uIU/mL (0.27-4.20); Triglycerides 154 mg/dL (0-150)
--- NOTE | 2023-03-05 18:27 | ECG_ITS ---
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 Measurements Intervals [place] Rate: 90 P: 60 AL: 163 QRS: 65 QRSD: 82 T: 56 QT: 330 QTc: 405 Interpretive Statements SINUS RHYTHM Compared to ECG 03/05/2023 14:34:14 No significant changes Electronically Signed On 03-07-2023 6:51:12 CDT by Lauren Diez M.D. [id number]
[2023-03-05 18:53] LABS: Estmated Average Glucose 249; Hemoglobin A1C 10.3 % (4.0-6.0)
--- NOTE | 2023-03-05 19:24 | PC.NURSE ---
from er pt alert,oriented. chronic pain on his back, shoulder, neuropathy on hands and feet. is going to bring his prograf and other med for his antirejection due to kidney transplant. call light provided to pt.
[2023-03-05 19:38] LABS: Troponin 5 6HR 7.71 ng/L (0-15)
[2023-03-05 19:44] LABS: Troponin 5 6HR Delta -1.29 ng/L (0-12)
[2023-03-05 20:19] LABS: Glucose Point of Care 264 mg/dL (70-110)
[2023-03-05] MEDS: gabapentin 300 mg Capsule 600 MG PO (20:19)
[2023-03-06] VITALS (9 sets, daily range): BP systolic 119–150; BP diastolic 81–101; PULSE 75–86; RESP 14–23; TEMP 36.4–36.6; O2SAT 90–92
[2023-03-06] MEDS: HYDROcodone-acetaminophen 5-325 mg Tablet 1 TAB PO ×2 (02:32→13:03)
[2023-03-06 04:35] LABS: Basophils # 0.1 10^3/uL (0.0-0.1); Basophils % 0.7 %; Eosinophils # 0.5 10^3/uL (0.0-0.8); Eosinophils % 5.5 %; Hemoglobin 12.3 g/dL (11.7-16.6); Lymphocytes # 1.8 10^3/uL (0.8-4.8); Lymphocytes % 21.3 %; Mean Corpuscular HGB Conc 29.3 g/dL (30.0-36.0); Mean Corpuscular Hemoglobin 24.4 pg (28.0-34.0); Mean Corpuscular Volume 83.2 fl (80-94); Mean Platelet Volume 11.5 fL (7.4-10.4); Monocytes # 0.9 10^3/uL (0.2-0.9); Monocytes % 10.5 %; Neutrophils # 5.25 10^3/uL (1.8-7.7); Neutrophils % 60.7 %; Nucleated Red Blood Cells % 0 %; Platelet Count 249 10^3/cmm (130-400); Red Blood Count 5.05 10^6/uL (4.1-5.3); Red Cell Distribution Width 17.6 % (12.1-15.1); White Blood Count 8.7 10^3/uL (4.0-10.0)
[2023-03-06 04:50] LABS: Alanine Aminotransferase 10 U/L (0-41); Albumin Level 3.5 g/dL (3.5-5.2); Alkaline Phosphatase 125 U/L (40-130); Anion Gap 16.3 (5-19); Aspartate Amino Transferase 13 U/L (0-40); Blood Urea Nitrogen 18 mg/dL (8-23); Calcium 9.2 mg/dL (8.5-10.5); Carbon Dioxide 24 mmol/L (22-29); Chloride 104 mmol/L (98-107); Globulin 3.3 g/dL (1.3-4.6); Glomerular Filtration Rate 74.5 mL/min (90-130); Glucose 206 mg/dL (65-115); Magnesium 1.6 mg/dL (1.7-2.3); Osmolality Calculated 298 mOsm/kg (285-295); Phosphorus 3.4 mg/dL (2.5-4.5); Potassium 4.3 mmol/L (3.5-5.1); Sodium 140 mmol/L (136-145); Total Bilirubin 0.3 mg/dL (0.15-1.2); Total Protein 6.8 g/dL (6.6-8.7)
--- NOTE | 2023-03-06 06:00 | PC.NURSE ---
Patient requested home medications to be given at his home time.
[2023-03-06 06:19] LABS: Glucose Point of Care 154 mg/dL (70-110)
[2023-03-06] MEDS: insulin glargine 100 units/1 mL 50 UNIT SUBCUT (08:11)
[2023-03-06] MEDS: tamsulosin 0.4 mg Capsule PO (08:12)
[2023-03-06] MEDS: atorvastatin 40 mg Tablet 80 MG PO (08:12)
[2023-03-06] MEDS: magnesium oxide 400 mg tablet PO (08:12)
[2023-03-06] MEDS: metoprolol succinate ER (24 HR) 50 mg Tablet PO (08:12)
[2023-03-06] MEDS: pantoprazole DR 40 mg Tablet PO (08:12)
[2023-03-06] MEDS: isosorbide mononitrate ER 60 mg Tablet PO (08:12)
[2023-03-06] MEDS: cholecalciferol (vitamin D3) 1,000 unit Tablet 1000 UNIT PO (08:12)
[2023-03-06] MEDS: insulin lispro 100 unit/1 mL SUBCUT ×2 (08:12→13:00)
[2023-03-06] MEDS: gabapentin 300 mg Capsule 600 MG PO (08:12)
[2023-03-06] MEDS: aspirin 81 mg Chew Tablet PO (08:12)
[2023-03-06] MEDS: allopurinol 100 mg Tablet 200 MG PO (08:12)
[2023-03-06 11:56] LABS: Glucose Point of Care 199 mg/dL (70-110)
--- NOTE | 2023-03-06 12:56 | P.DS_ITS ---
Discharge Providers Date of Admission: 03/05/23 16:38 Date of Discharge: March 06, 2023 Attending Provider at Admission: Garcia Baker MD Attending Provider at Discharge: Garcia Baker MD Primary Care Provider: Guadalupe Wick MD Diagnoses at Discharge Discharge Diagnosis (1) Urinary tract infection: Status: Acute (2) Hyponatremia: Status: Acute (3) Hyperkalemia: Status: Acute (4) Chest pain: Status: Acute (5) Paresthesias: Status: Acute (6) History of kidney transplant: Status: Acute (7) Immunocompromised: Status: Acute (8) Goals of care, counseling/discussion: Status: Acute Reason for Visit Reason for Visit: [facility] sent/arm pain/chest pressure Hospital Course Hospital Course Jesús Mendoza is a 67 year old male with a past medical history of insulin- dependent type 2 diabetes mellitus, diabetic peripheral neuropathy, hypertension, hyperlipidemia, CAD, history of emphysema, history of kidney transplantation, for diabetic nephropathy, who presents to [facility] due to multiple complaints Patient tells me that he saw his dentist, was going in for a dental filling, when he had an x-ray done, the dentist went back and looked at the x-ray multiple times he was worried about calcification in his carotid arteries, he has been complaining of paresthesias in both hands, no facial droop no slurring of his words, no paresthesias anywhere else no focal weakness, he does tell me recently been more unsteady on his feet, no falls, no injuries, he does have neuropathy of his feet so the dentist was quite worried and told him to have this immediately evaluated to come to the emergency room he is never had a stroke but roughly 6 months ago he did go to [facility] and he was told that he potentially had a TIA, 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 He also reports intermittent chest pain, left-sided, he is not sure if it is in his chest or in his shoulder, but does report increased shortness of breath with exertion, he has had stents placed he tells me, no nausea, no vomiting, diaphoresis, Does report increased lightheadedness, unsteadiness on his feet, he has been peeing more, his blood sugars are controlled he tells me his average blood sugars are in the 250s, his urine does have a foul odor to it he tells me Patient was admitted to [facility] for chest pain, paresthesias, UTI Chest pain -Serial EKGs no acute ST-T wave changes, serial troponins no significant delta troponins, telemetry monitoring -Continue aspirin, statin -Cardiac echo 1. Normal left ventricular size, systolic function and wall ?thickness, with no regional wall motion abnormalities. Left ?ventricular ejection fraction is estimated at 65 %. Grade I ?diastolic dysfunction (abnormal relaxation filling pattern), ?normal to mildly elevated filling pressures. ?2. No prio similar studies to compare. -Monitor for recurrent chest pain -No recurrent chest pain during hospitalization -Discharge with a follow-up with urban sociologist outpatient for consideration of stress testing Paresthesias -Current NIH stroke scale 0 -CT of the head no acute findings -Carotid ultrasound Bilateral ICA stenosis less than 50%. ?Mild carotid atherosclerosis. -Neurochecks, aspiration precautions, night stroke scale - if any recurrent strokelike symptoms please go to emergency room -Continue aspirin, statin Urinary tract infection with a history of recurrent E. coli UTI, immunocompromise state -Renal ultrasound no acute findings -Follow urine cultures so far gram-negative rods, blood cultures -Managed with Rocephin, discharged on 7 days of cefdinir Hyperglycemia with type 2 diabetes mellitus -Decrease home Levemir to 50 units twice daily -High-dose insulin sliding scale Immunocompromise state History of transplanted kidney Please monitor your blood sugars closely -Monitor your blood sugars 3 times daily as after meals -Please record your blood sugars, and a blood sugar log -For your NovoLog -Please inject blood sugar after meals based on sliding scale provided -Do not inject insulin if you do not eat as hypoglycemia kills -This is a NovoLog sliding scale -Insulin sliding ?fingerstick? Insulin ?141-180?0 units/sq 181-220?2 units/sq ?221-260?4 units/sq ?261-300 6 units/sq ?301-350?8 units/sq ?351-400 10 units/sq ?401-450?12 units/sq >450? 14units/sq -If your blood sugar is greater than 500 go to the emergency room -If your blood sugar is less than 60 or at anytime you feel lightheaded or dizzy or diaphoretic or have chest palpitations check your blood sugar, and eat a hard candy or drink orange juice and go immediately to the emergency room -Remember hypoglycemia kills, so if his blood sugar is less than 60 we have to increase it by taking in a sugary meal such as a hard candy or orange juice and go to the emergency room -If you have any questions please call us where here to help -See primary care provider about blood sugar titration, A1c is 10.3 -Take antibiotics as prescribed for UTI -Drink plenty of electrolyte balanced fluids Physical Exam Const: COMMON NORMALS: no acute distress and patient oriented x3 Resp: COMMON NORMALS: normal respiratory effort, No retractions, No use of accessory muscles and clear to auscultation bilaterally AUSCULTATION: clear to auscultation bilaterally Cardio: COMMON NORMALS: regular rate, regular rhythm, S1 normal heart sound present and S2 normal heart sound present RATE: regular rate RHYTHM: regular rhythm HEART SOUNDS: S1 normal heart sound present and S2 normal heart sound present GI: COMMON NORMALS: Normal to inspection, nondistended, normoactive bowel sounds present and non-tender Extremity: COMMON NORMALS: no calf tenderness and no pedal edema Neuro: COMMON NORMALS: patient oriented x3 Psych: COMMON NORMALS: mental status grossly normal Discharge Data Studies Completed and Pending Completed Studies During Hospitalization Category Date Time Status CT head wo con* [id number] Stat Cat Scan 03/05/23 16:31 Completed XR chest 1V portable [id number] Stat Exams 03/05/23 12:27 Completed CV carotid duplex BI* [id number] Stat Ultrasound 03/05/23 16:27 Completed CV. echo complete* [id number] Stat Ultrasound 03/05/23 16:27 Completed US kidney bilateral [US renal BI* [id number]] Stat Ultrasound 03/05/23 16:27 Completed Pending at discharge Category Date Time Status Blood Culture Stat Lab 03/05/23 16:27 Results Urine Culture Stat Lab 03/05/23 13:03 Results Radiology Impressions Chest X-Ray 03/05/23 12:27 Impression: Atherosclerosis. Renal Ultrasound 03/05/23 16:27 IMPRESSION: Normal appearance of the transplanted kidney in the RIGHT pelvis. No obstruction, hydronephrosis or inflammation. Head CT 03/05/23 16:31 IMPRESSION: No acute intracranial abnormality. Laboratory Results WBC 8.7 10^3/uL (4.0-10.0) 03/06/23 03:42 RBC 5.05 10^6/uL (4.1-5.3) 03/06/23 03:42 Hgb 12.3 g/dL (11.7-16.6) 03/06/23 03:42 Hct 42.0 % (42.0-52.0) 03/06/23 03:42 MCV 83.2 fl (80-94) 03/06/23 03:42 MCH 24.4 pg (28.0-34.0) L 03/06/23 03:42 MCHC 29.3 g/dL (30.0-36.0) L 03/06/23 03:42 RDW 17.6 % (12.1-15.1) H 03/06/23 03:42 Plt Count 249 10^3/cmm (130-400) 03/06/23 03:42 MPV 11.5 fL (7.4-10.4) H 03/06/23 03:42 Neut % (Auto) 60.7 % 03/06/23 03:42 Lymph % (Auto) 21.3 % 03/06/23 03:42 [place] % (Auto) 10.5 % 03/06/23 03:42 Eos % (Auto) 5.5 % 03/06/23 03:42 Baso % (Auto) 0.7 % 03/06/23 03:42 Neut # (Auto) 5.25 10^3/uL (1.8-7.7) 03/06/23 03:42 Lymph # (Auto) 1.8 10^3/uL (0.8-4.8) 03/06/23 03:42 [place] # (Auto) 0.9 10^3/uL (0.2-0.9) 03/06/23 03:42 Eos # (Auto) 0.5 10^3/uL (0.0-0.8) 03/06/23 03:42 Baso # (Auto) 0.1 10^3/uL (0.0-0.1) 03/06/23 03:42 Nucleated RBC % (auto) 0 % 03/06/23 03:42 Nucleated RBCs # 0.0 /100WBC 03/06/23 03:42 Sodium 140 mmol/L (136-145) 03/06/23 03:42 Potassium 4.3 mmol/L (3.5-5.1) 03/06/23 03:42 Chloride 104 mmol/L (98-107) 03/06/23 03:42 Carbon Dioxide 24 mmol/L (22-29) 03/06/23 03:42 Anion Gap 16.3 (5-19) 03/06/23 03:42 BUN 18 mg/dL (8-23) 03/06/23 03:42 Creatinine 1.0 mg/dL (0.7-1.2) 03/06/23 03:42 GFR Calculation 74.5 mL/min (90-130) L 03/06/23 03:42 Glucose 206 mg/dL (65-115) H 03/06/23 03:42 POC Glucose 199 mg/dL (70-110) H 03/06/23 11:50 Estimat Average Glucose 249 03/05/23 13:18 Hemoglobin A1c 10.3 % (4.0-6.0) H 03/05/23 13:18 Calculated Osmolality 298 mOsm/kg (285-295) H 03/06/23 03:42 Lactic Acid 1.7 mmol/L (0.5-2.2) 03/05/23 14:07 Calcium 9.2 mg/dL (8.5-10.5) 03/06/23 03:42 Phosphorus 3.4 mg/dL (2.5-4.5) 03/06/23 03:42 Magnesium 1.6 mg/dL (1.7-2.3) L 03/06/23 03:42 Total Bilirubin 0.3 mg/dL (0.15-1.2) 03/06/23 03:42 AST 13 U/L (0-40) 03/06/23 03:42 ALT 10 U/L (0-41) 03/06/23 03:42 Alkaline Phosphatase 125 U/L (40-130) 03/06/23 03:42 Troponin T Baseline 9 ng/L (0-15) 03/05/23 13:18 Troponin T 120 Minute 8.41 ng/L (0-15) 03/05/23 14:55 Delta Troponin T -0.59 ABS# (0-10) L 03/05/23 14:55 Troponin T Hi Sens 6Hr 7.71 ng/L (0-15) 03/05/23 19:00 Troponin T Hi Sens 6Hr Delta -1.29 ng/L (0-12) L 03/05/23 19:00 NT-Pro-B Natriuret Pep 72 pg/mL (0-125) 03/05/23 13:18 Total Protein 6.8 g/dL (6.6-8.7) 03/06/23 03:42 Albumin 3.5 g/dL (3.5-5.2) 03/06/23 03:42 Globulin 3.3 g/dL (1.3-4.6) 03/06/23 03:42 Triglycerides 154 mg/dL (0-150) H 03/05/23 13:18 Cholesterol 86 mg/dL (0-200) 03/05/23 13:18 LDL Cholesterol, Calc 22 mg/dL (50-129) L 03/05/23 13:18 HDL Cholesterol 33 mg/dL (60-100) L 03/05/23 13:18 LDL/HDL Ratio 0.67 RATIO (0.00-3.22) 03/05/23 13:18 Cholesterol/HDL Ratio 2.61 mg/dL (1.0-5.00) 03/05/23 13:18 Procalcitonin 0.07 ng/mL (0-0.5) 03/05/23 14:55 TSH 1.33 uIU/mL (0.27-4.20) 03/05/23 13:18 Urine Color Yellow (Yellow) 03/05/23 13:03 Urine Appearance Cloudy (CLEAR) A 03/05/23 13:03 Urine pH 6 (5-7) 03/05/23 13:03 Ur Specific [place] 1.015 (1.005-1.030) 03/05/23 13:03 Urine Protein Neg (Negative) 03/05/23 13:03 Urine Glucose (UA) 4+ (Normal) H 03/05/23 13:03 Urine Ketones Negative (Negative) 03/05/23 13:03 Urine Blood 2+ (Negative) H 03/05/23 13:03 Urine Nitrate Negative (Negative) 03/05/23 13:03 Urine Bilirubin Neg (Negative) 03/05/23 13:03 Urine Urobilinogen Norm mg/dL (Negative) 03/05/23 13:03 Ur Leukocyte Esterase 2+ (Negative) H 03/05/23 13:03 Urine RBC 0-4 /hpf (0-2) H 03/05/23 13:03 Urine WBC Too numerous to cnt /hpf (0-5) H 03/05/23 13:03 Ur Squamous Epith Cells 0-4 /hpf (0-5) H 03/05/23 13:03 Amorphous Sediment Not Reportable 03/05/23 13:03 Urine Bacteria 3+ /hpf (NONE) H 03/05/23 13:03 Vitals Last Vital Signs Temp 97.6 F 03/06/23 08:08 Pulse 78 03/06/23 11:56 Resp 23 H 03/06/23 11:56 BP 119/81 03/06/23 11:56 Pulse Ox 92 03/06/23 11:56 O2 Del Method Room Air 03/06/23 11:56 Discharge Plan Discharge Patient Disposition: Home Condition: Stable Prescriptions: New cefdinir 300 mg capsule 300 mg PO BID 7 Days Qty: 14 0RF Continued albuterol sulfate 90 mcg/actuation HFA aerosol inhaler 2 puff inhalation Q6H PRN (Reason: shortness of breath or wheezing) Qty: 8.5 0RF atorvastatin 80 mg tablet 80 mg PO DAILY gabapentin 600 mg tablet 600 mg PO TID metoprolol succinate 50 mg tablet extended release 24 hr 50 mg PO DAILY hydrocodone-acetaminophen 5-325 mg tablet 1 tab PO Q6H PRN (Reason: Pain) amlodipine 5 mg tablet 5 mg PO DAILY allopurinol 100 mg tablet 200 mg PO DAILY isosorbide mononitrate 60 mg tablet extended release 24 hr 60 mg PO DAILY magnesium oxide 400 mg (241.3 mg magnesium) tablet 400 mg PO BID tamsulosin 0.4 mg capsule 0.4 mg PO DAILY nitroglycerin 0.4 mg tablet, sublingual 0.4 mg sublingual Q5MIN PRN (Reason: CHEST PAIN) omeprazole 20 mg capsule,delayed release(DR/EC) 20 mg PO DAILY tacrolimus 1 mg capsule 1 mg PO BID entecavir 0.5 mg tablet 0.5 mg PO DAILY aspirin 81 mg Tablet,Chewable 81 mg PO DAILY Vitamin D3 25 mcg (1,000 unit) Tablet 25 mcg PO DAILY Changed Humalog KwikPen Insulin 200 unit/mL (3 mL) insulin pen See Rx Instructions .ROUTE .COMPLEX Qty: 6 2RF Rx Instructions: Inject, subcut, 3 times daily, after meals, based on sliding scale provided Levemir FlexTouch U-100 Insuln 100 unit/mL (3 mL) insulin pen 50 unit SUBCUT BID Qty: 3 0RF Discharge Orders: Discharge Order (Routine); Ordered 03/06/23 Ordered By: Garcia Baker Referrals: Lauren Diez MD [Physician] - 2 weeks Guadalupe Wick MD [Primary Care Provider] - Discharge Diet: Cardiac Discharge Activity: Resume usual activity Patient Instructions: Opioid Safety Activity Restrictions/Additional Instructions: -Please monitor your blood sugars closely -Monitor your blood sugars 3 times daily as after meals -Please record your blood sugars, and a blood sugar log -For your NovoLog -Please inject blood sugar after meals based on sliding scale provided -Do not inject insulin if you do not eat as hypoglycemia kills -This is a NovoLog sliding scale -Insulin sliding ?fingerstick? Insulin ?141-180?0 units/sq 181-220?2 units/sq ?221-260?4 units/sq ?261-300 6 units/sq ?301-350?8 units/sq ?351-400 10 units/sq ?401-450?12 units/sq >450? 14units/sq -If your blood sugar is greater than 500 go to the emergency room -If your blood sugar is less than 60 or at anytime you feel lightheaded or dizzy or diaphoretic or have chest palpitations check your blood sugar, and eat a hard candy or drink orange juice and go immediately to the emergency room -Remember hypoglycemia kills, so if his blood sugar is less than 60 we have to increase it by taking in a sugary meal such as a hard candy or orange juice and go to the emergency room -If you have any questions please call us where here to help -See primary care provider about blood sugar titration, A1c is 10.3 -Take antibiotics as prescribed for UTI -Drink plenty of electrolyte balanced fluids Discharge Attestations Time Spent in Discharge Care*: greater than 30 min Status at Discharge: Cognitive status at discharge: cognitively intact , Behavioral status at discharge: cooperative , Quality Metrics Clinical Quality Measures [ No reported AMI, CVA or VTE this stay] Coding Level of Care Code 13819 Total time (in minutes) for Discharge: 45 Diagnoses Urinary tract infection N39.0 Hyponatremia E87.1 Hyperkalemia E87.5 Chest pain R07.9 Paresthesias R20.2 History of kidney transplant Z94.0 Immunocompromised D84.9 Goals of care, counseling/discussion Z71.89
== END 2023-03-06 14:25 | disposition home or self-care (01) ==
LOC: ER 16:38 → CSU 16:39
PROVIDERS: Admitting Provider Family Medicine; Emergency Provider Emergency Medicine; PCP Family Medicine; Visit Provider Family Medicine
DX: R07.9 Chest pain, unspecified (principal); N39.0 Urinary tract infection, site not specified; E87.1 Hypo-osmolality and hyponatremia; E87.5 Hyperkalemia; Z94.0 Kidney transplant status; D84.9 Immunodeficiency, unspecified; Z79.891 Long term (current) use of opiate analgesic; Z79.82 Long term (current) use of aspirin; E11.65 Type 2 diabetes mellitus with hyperglycemia; E11.40 Type 2 diabetes mellitus with diabetic neuropathy, unspecified; Z79.4 Long term (current) use of insulin; I10 Essential (primary) hypertension; E78.5 Hyperlipidemia, unspecified; I25.10 Atherosclerotic heart disease of native coronary artery without angina pectoris; E11.21 Type 2 diabetes mellitus with diabetic nephropathy; Z87.891 Personal history of nicotine dependence; Z79.52 Long term (current) use of systemic steroids; R20.2 Paresthesia of skin; Z95.5 Presence of coronary angioplasty implant and graft
CPT/HCPCS: 36415; 36416; 70450; 71045; 76770; 80053; 80061; 81001; 82962; 83036; 83605; 83735; 83880; 84100; 84145; 84443; 84484; 85025; 87040; 87077; 87086; 87186; 93005; 93306; 93880; 94664; 96361; 96365; 96372; 96375; 99285; C9113; G0378; J0696; J1650; J1815; J7030; J7507

== ENCOUNTER → 2023-03-09 08:57 | Outpatient (BNVA) | payer MEDICARE, MEDICAID, SELFPAY | PROVIDERS: Referring Provider Emergency Medicine; Visit Provider Internal Medicine | DX: E11.42 Type 2 diabetes mellitus with diabetic polyneuropathy (principal); L97.512 Non-pressure chronic ulcer of other part of right foot with fat layer exposed; Z79.4 Long term (current) use of insulin; E11.59 Type 2 diabetes mellitus with other circulatory complications; E78.5 Hyperlipidemia, unspecified; I25.10 Atherosclerotic heart disease of native coronary artery without angina pectoris; Z94.0 Kidney transplant status; Z95.5 Presence of coronary angioplasty implant and graft; Z79.84 Long term (current) use of oral hypoglycemic drugs | CPT/HCPCS: 99204; 99213 ==

== ENCOUNTER → 2023-04-09 15:02 | Outpatient (BNVA) | payer MEDICARE, MEDICAID, SELFPAY | PROVIDERS: Visit Provider Family Medicine | DX: M51.16 Intervertebral disc disorders with radiculopathy, lumbar region (principal); M77.8 Other enthesopathies, not elsewhere classified | CPT/HCPCS: 72100; 73030 ==

== ENCOUNTER → 2023-04-27 14:04 | Outpatient (BNVA) | payer MEDICARE, MEDICAID, SELFPAY | PROVIDERS: Visit Provider Internal Medicine Cardiovascular Disease | DX: I25.118 Atherosclerotic heart disease of native coronary artery with other forms of angina pectoris (principal); B18.1 Chronic viral hepatitis B without delta-agent; J41.0 Simple chronic bronchitis; M1A.39X0 Chronic gout due to renal impairment, multiple sites, without tophus (tophi); E11.22 Type 2 diabetes mellitus with diabetic chronic kidney disease; N18.6 End stage renal disease; Z79.4 Long term (current) use of insulin; Z94.0 Kidney transplant status; Z95.5 Presence of coronary angioplasty implant and graft; R07.9 Chest pain, unspecified; Z87.891 Personal history of nicotine dependence | CPT/HCPCS: 99204 ==

== ENCOUNTER 2023-05-22 06:38 | Outpatient (CLI) | payer MEDICARE, MEDICAID, SELFPAY ==
--- NOTE | 2023-05-22 | ECG_ITS ---
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 Interpretive Statements NAME OF STUDY: LEXISCAN SESTAMIBI STRESS TEST INDICATION: Chest Pain, PROCEDURE: At the baseline, the EKG revealed normal sinus rhythm with some nonspecific T wave changes. Possible old inferior and lateral wall NC. The baseline heart was 74 bpm with a blood pressue of 153/98 mm of Hg Lexiscan was infused over a period of 20 seconds. A total of 0.4 milligrams of Lexiscan was infused. The stress phase was continued for a total of 5 minutes. Heart rate at the end of the stress phase was 82 bpm with a blood pressure 175/101 mm of Hg. The EKG at the peak infusion revealed no significant changes. Sestamibi was injected 20 seconds after the Lexiscan infusion. Heart rate at the end of the recovery phase was 82 bpm with a blood pressure of 175/101 mm of Hg. CONCLUSION: 1. No significant EKG changes with the LexiScan infusion 2. No LexiScan induced chest pain or cardiac arrhythmia 3. Normal blood pressure and heart rate response 4. Sestamibi/sestamibi perfusion scan pending; see separate report. Electronically Signed On 05-31-2023 18:16:36 CDT by Eulogio Norman M.D. [email or web address]
[2023-05-22 07:00] VITALS: BMI 32.6
--- NOTE | 2023-05-22 07:55 | NMCV_ITS ---
NM stefanie perf SPECT r/s* [id number] Jesús Mendoza Age: 67 Gender: M : 1955 Exam Date: 05/22/2023 07:50 Ordering Phys: Malvin Rose MD ([email or web address]) Technologist: BASHIR Sheppard Exam Location: [facility] Indications: CHEST PAIN STRESS TEST Please see separate stress test report in [facility] for full findings IMAGE PROTOCOL Rest/Stress 1 Lexiscan Day Radiopharmaceutical Dose (mCi) Administration Site Administered by Rest: Tc-99m 10.9 IV BASHIR Sanchez Sestamibi Stress:Tc-99m 32.8 IV BASHIR Sheppard Sestamibi Rest: 22-May-2023 60 Discovery 630 Stress: 22-May-2023 30 Discovery 630 0.4mg Lexiscan. Images obtained in supine and prone position. SPECT RESULTS Technical Quality: Excellent Raw Data Analysis: Normal Image Corrections: No attenuation or motion correction applied Summed Stress Score: 4 Summed Rest Score: 3 Summed Difference Score: 1 PERFUSION FINDINGS Small to moderate area of moderately decreased tracer uptake was noted in the basal ,mid and apical inferior wall region. Subtle area of reversibility was noted in the apical inferior region. FUNCTIONAL RESULTS (calculated via Gated SPECT) Stress Image LV EF (%): 73 Stress EDV (mL):93 TID: 1.02 Stress ESV (mL):25 FUNCTIONAL FINDINGS: Segmental wall motion analysis revealing no gross wall motion abnormalities . IMPRESSIONS 1. Myocardial perfusion imaging revealing small to moderate area of moderately decreased tracer uptake in the inferior wall region with a subtle area of reversibility suggesting myocardial scarring with a very small area of [place] infarction or ischemia in the distribution of the right coronary artery. 2. Normal LV ejection fraction of 73%. 3. LV wall motion analysis revealing no gross wall motion abnormalities. 4. Normal LV volume No similar previous studies are available for comparison Dr Eulogio Norman MD FACC (Electronically Signed) Final Date: 22 May 2023 14:59 S
[2023-05-22] MEDS: regadenoson 0.4 Mg/5 ml Syringe IVP (08:17)
[2023-05-22 08:35] VITALS: BP 156/89; PULSE 81
== END 2023-05-22 06:39 | disposition home or self-care (01) ==
LOC: CDL 06:38
PROVIDERS: PCP Family Medicine; Visit Provider Internal Medicine Cardiovascular Disease
DX: R07.9 Chest pain, unspecified (principal); I25.10 Atherosclerotic heart disease of native coronary artery without angina pectoris; R94.39 Abnormal result of other cardiovascular function study
CPT/HCPCS: 36415; 78451; 93017; 96375; A9500; J2785

== ENCOUNTER → 2023-06-08 08:40 | Outpatient (BNVA) | payer MEDICARE, MEDICAID, SELFPAY | PROVIDERS: PCP Family Medicine; Visit Provider Family Medicine | DX: M25.511 Pain in right shoulder (principal); G89.29 Other chronic pain; E11.9 Type 2 diabetes mellitus without complications; M51.16 Intervertebral disc disorders with radiculopathy, lumbar region; J44.9 Chronic obstructive pulmonary disease, unspecified; E11.42 Type 2 diabetes mellitus with diabetic polyneuropathy; M76.61 Achilles tendinitis, right leg; M20.41 Other hammer toe(s) (acquired), right foot; M20.42 Other hammer toe(s) (acquired), left foot; M21.611 Bunion of right foot; M21.612 Bunion of left foot; Z79.4 Long term (current) use of insulin | CPT/HCPCS: 73030; 80053; 80061; 82043; 83036; 85025; 85651; 86038; 86140; 99213; 99214 ==

== ENCOUNTER → 2023-06-10 09:50 | Outpatient (BNVA) | payer MEDICARE, MEDICAID, SELFPAY | PROVIDERS: PCP Family Medicine; Referring Provider Family Medicine; Visit Provider Anesthesiology Pain Medicine | DX: M51.16 Intervertebral disc disorders with radiculopathy, lumbar region (principal); M25.511 Pain in right shoulder; M25.512 Pain in left shoulder; M47.816 Spondylosis without myelopathy or radiculopathy, lumbar region; E11.42 Type 2 diabetes mellitus with diabetic polyneuropathy; E78.2 Mixed hyperlipidemia; Z79.4 Long term (current) use of insulin; Z94.0 Kidney transplant status | CPT/HCPCS: 99214 ==

== ENCOUNTER → 2023-07-08 09:11 | Outpatient (BNVA) | payer MEDICARE, MEDICAID, SELFPAY | PROVIDERS: PCP Family Medicine; Visit Provider Specialist | DX: M25.812 Other specified joint disorders, left shoulder; M75.102 Unspecified rotator cuff tear or rupture of left shoulder, not specified as traumatic; M12.812 Other specific arthropathies, not elsewhere classified, left shoulder | CPT/HCPCS: 73030; 99204 ==

== ENCOUNTER → 2023-07-15 09:04 | Outpatient (BNVA) | payer MEDICARE, MEDICAID, SELFPAY | PROVIDERS: PCP Family Medicine; Referring Provider Family Medicine; Visit Provider Family Medicine | DX: Z94.0 Kidney transplant status (principal); Z79.899 Other long term (current) drug therapy | CPT/HCPCS: 80048; 80197; 82570; 84156 ==

== ENCOUNTER 2023-08-11 10:14 | Outpatient (CLI) | payer MEDICARE, MEDICAID, SELFPAY ==
--- NOTE | 2023-08-11 11:00 | MR_ITS ---
WS: [id number] MRI LEFT SHOULDER NONCONTRAST TECHNIQUE: Sagittal T2, coronal T1, T2 and proton density imaging. Axial gradient PDE imaging. CLINICAL INFORMATION: left shoulder positive impingement COMPARISON: None. FINDINGS: Moderate to advanced degenerative arthritis AC joint with fluid and edema. Mild downsloping of the ac romion with subacromial spurring. Impingement distal supraspinatus. Tendinopathy distal supraspinatus . Cystic changes involving the distal clavicle with fluid in the AC joint. Recommend correlation for synovitis. Normal infraspinatus. Normal teres minor. Chronic thinning subscapularis with tendinopathy. Biceps te ndon appears intact within the bicipital groove. Chronic appearing degenerative fraying of the glenoi d labrum. Normal bone marrow signal in the glenoid. Visually small joint capsule can be seen with adh esive capsulitis in the appropriate clinical setting. Small amount of edema in the rotator interval. Biceps labral anchor appears intact. IMPRESSION: Some images degraded by motion. 1. Moderate to advanced degenerative arthritis AC joint with fluid and mild widening. Cystic changes involving the distal clavicle. Recommend correlation for synovitis. 2. Mild downsloping acromion with slight impingement distal supraspinatus with tendinopathy. 3. Chronic thinning with tendinopathy involving the subscapularis. 4. Biceps tendon appears intact within the bicipital groove. 5. Visually small shoulder capsule can be seen with adhesive capsulitis in the appropriate clinical setting.
== END 2023-08-11 10:15 | disposition home or self-care (01) ==
LOC: RAD 10:14
PROVIDERS: PCP Family Medicine; Visit Provider Specialist
DX: L57.0 Actinic keratosis (principal); M25.812 Other specified joint disorders, left shoulder; L82.1 Other seborrheic keratosis; L81.4 Other melanin hyperpigmentation; L57.8 Other skin changes due to chronic exposure to nonionizing radiation; D36.12 Benign neoplasm of peripheral nerves and autonomic nervous system, upper limb, including shoulder; D22.5 Melanocytic nevi of trunk; B35.1 Tinea unguium
CPT/HCPCS: 17000; 73221; 99204

== ENCOUNTER → 2023-08-21 10:38 | Outpatient (BNVA) | payer MEDICARE, MEDICAID, SELFPAY | PROVIDERS: PCP Family Medicine; Visit Provider Emergency Medicine | DX: R68.89 Other general symptoms and signs (principal); J02.9 Acute pharyngitis, unspecified | CPT/HCPCS: 87071; 87400; 87880 ==

== ENCOUNTER → 2023-08-31 12:33 | Outpatient (BNVA) | payer MEDICARE, MEDICAID, SELFPAY | PROVIDERS: PCP Family Medicine; Visit Provider Family Medicine | DX: E11.9 Type 2 diabetes mellitus without complications (principal); M25.571 Pain in right ankle and joints of right foot; B34.9 Viral infection, unspecified; R53.83 Other fatigue | CPT/HCPCS: 73610; 80053; 81000; 83036; 85025; 85651; 86140; 87426 ==

== ENCOUNTER → 2023-09-02 09:58 | Outpatient (BNVA) | payer MEDICARE, MEDICAID, SELFPAY | PROVIDERS: PCP Family Medicine; Visit Provider Podiatrist Foot & Ankle Surgery | DX: M72.2 Plantar fascial fibromatosis (principal); E11.42 Type 2 diabetes mellitus with diabetic polyneuropathy; M76.61 Achilles tendinitis, right leg; M20.41 Other hammer toe(s) (acquired), right foot; M20.42 Other hammer toe(s) (acquired), left foot; M21.611 Bunion of right foot; M21.612 Bunion of left foot; Z79.4 Long term (current) use of insulin | CPT/HCPCS: 20550; 99213; J1100; J3301 ==

== ENCOUNTER → 2023-09-08 08:15 | Outpatient (BNVA) | payer MEDICARE, MEDICAID, SELFPAY | PROVIDERS: PCP Family Medicine; Referring Provider Family Medicine; Visit Provider Family Medicine | DX: Z94.0 Kidney transplant status (principal); E87.5 Hyperkalemia; I10 Essential (primary) hypertension; Z51.81 Encounter for therapeutic drug level monitoring | CPT/HCPCS: 80048; 80069; 80197; 82542; 82570; 83735; 84156; 85007; 85027 ==

== ENCOUNTER → 2023-10-16 08:43 | Outpatient (BNVA) | payer MEDICARE, MEDICAID, SELFPAY | PROVIDERS: PCP Family Medicine; Visit Provider Family Medicine | DX: Z94.0 Kidney transplant status (principal); Z79.899 Other long term (current) drug therapy | CPT/HCPCS: 80069; 80197; 82542; 82570; 84156; 85007; 85027 ==

== ENCOUNTER → 2023-10-26 14:21 | Outpatient (BNVA) | payer MEDICARE, MEDICAID, SELFPAY | PROVIDERS: PCP Family Medicine; Referring Provider Family Medicine; Visit Provider Family Medicine | DX: Z94.0 Kidney transplant status (principal) | CPT/HCPCS: 80048 ==

== ENCOUNTER → 2023-11-04 09:58 | Outpatient (BNVA) | payer MEDICARE, MEDICAID, SELFPAY | PROVIDERS: PCP Family Medicine; Visit Provider Podiatrist Foot & Ankle Surgery | DX: E11.42 Type 2 diabetes mellitus with diabetic polyneuropathy (principal); M20.41 Other hammer toe(s) (acquired), right foot; M20.42 Other hammer toe(s) (acquired), left foot; M21.611 Bunion of right foot; M21.612 Bunion of left foot; M72.2 Plantar fascial fibromatosis; Z79.4 Long term (current) use of insulin | CPT/HCPCS: 20610; 73030; 81000; 99213; 99214; J1100; J2795; J3301 ==

== ENCOUNTER → 2023-11-13 09:11 | Outpatient (BNVA) | payer MEDICARE, MEDICAID, SELFPAY | PROVIDERS: Referring Provider Family Medicine; Visit Provider Family Medicine | DX: Z94.0 Kidney transplant status (principal) | CPT/HCPCS: 80048 ==

== ENCOUNTER 2023-11-16 06:00 | Outpatient (RCR) | payer MEDICARE, MEDICAID, SELFPAY | END 2023-11-18 23:59 | disposition home or self-care (01) | LOC: MPT 06:00 | PROVIDERS: Visit Provider Specialist | DX: M25.512 Pain in left shoulder (principal) | CPT/HCPCS: 97110; 97161 ==

== ENCOUNTER → 2023-12-03 10:10 | Outpatient (BNVA) | payer MEDICARE, MEDICAID, SELFPAY | PROVIDERS: Visit Provider Emergency Medicine | DX: B34.9 Viral infection, unspecified (principal); J02.9 Acute pharyngitis, unspecified; I70.90 Unspecified atherosclerosis | CPT/HCPCS: 71046; 87400; 87426; 87880 ==

== ENCOUNTER → 2024-01-13 08:33 | Outpatient (BNVA) | payer MEDICARE, MEDICAID, SELFPAY | PROVIDERS: PCP Family Medicine; Referring Provider Family Medicine; Visit Provider Family Medicine | DX: I25.118 Atherosclerotic heart disease of native coronary artery with other forms of angina pectoris (principal) | CPT/HCPCS: 80069; 80197; 82043; 82542; 85025 ==

== ENCOUNTER → 2024-01-18 14:16 | Outpatient (BNVA) | payer MEDICARE, MEDICAID, SELFPAY | PROVIDERS: PCP Family Medicine; Visit Provider Family Medicine | DX: Z12.5 Encounter for screening for malignant neoplasm of prostate (principal); I10 Essential (primary) hypertension; E11.9 Type 2 diabetes mellitus without complications; E11.22 Type 2 diabetes mellitus with diabetic chronic kidney disease; J44.9 Chronic obstructive pulmonary disease, unspecified; Z79.4 Long term (current) use of insulin | CPT/HCPCS: 80053; 83036; 85025; G0103 ==

== ENCOUNTER → 2024-02-01 10:06 | Outpatient (BNVA) | payer MEDICARE, MEDICAID, SELFPAY | PROVIDERS: PCP Family Medicine; Visit Provider Podiatrist Foot & Ankle Surgery | DX: M72.2 Plantar fascial fibromatosis (principal); E11.42 Type 2 diabetes mellitus with diabetic polyneuropathy; M20.41 Other hammer toe(s) (acquired), right foot; M20.42 Other hammer toe(s) (acquired), left foot; M21.611 Bunion of right foot; M21.612 Bunion of left foot; L60.3 Nail dystrophy; Z79.4 Long term (current) use of insulin | CPT/HCPCS: 11721; 20550; J1100; J3301; J3490 ==

== ENCOUNTER 2024-02-08 11:27 | Emergency (ER) | payer MEDICARE, MEDICAID, SELFPAY ==
[2024-02-08 11:31] VITALS: BP 154/97; PULSE 69; RESP 18; TEMP 36.5; O2SAT 92
--- NOTE | 2024-02-08 11:37 | ECG_ITS ---
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 Measurements Intervals [place] Rate: 68 P: 34 MA: 142 QRS: 61 QRSD: 97 T: 79 QT: 364 QTc: 388 Interpretive Statements SINUS RHYTHM WITH OCCASIONAL SUPRAVENTRICULAR PREMATURE COMPLEXES POSSIBLE INFERIOR MYOCARDIAL INFARCTION , PROBABLY OLD [30 ms Q WAVE IN II/aVF] Compared to ECG 03/05/2023 20:07:46 Myocardial infarct finding now present Electronically Signed On 02-08-2024 15:03:54 CDT by Malvin Rose M.D. [id number]
--- NOTE | 2024-02-08 11:37 | XR_ITS ---
WS: [id number] CHEST, 1 view. HISTORY: shortness of breath COMPARISON: 12/03/2023 Lungs are very slightly hyperexpanded. No area of consolidation. No mass. No pneumonia. Normal vasculature. No pleural effusion or pneumothorax. Cardiac size: Normal. Mediastinum/Aorta: Mild atherosclerosis aorta. No osseous abnormality seen. IMPRESSION: Unremarkable chest.
--- NOTE | 2024-02-08 11:49 | ED_ITS ---
HPI - Dizziness 2 General: Chief Complaint: Dizziness Stated Complaint: Dizzy/N Time Seen by Provider: 02/08/24 11:31 History of Present Illness: HPI Narrative: 68-year-old man with a history of kidney transplant on tacrolimus and prednisone, insulin-dependent diabetes, hypertension, hyperlipidemia coronary artery disease and chronic COPD who presents to the emergency room with dizziness. He says that his body produces too much potassium and whenever his potassium gets high he will feel this way. He says he feels off balance and like he is spinning particularly with movement. No chest pain. No shortness of breath. No abdominal pain. No vomiting. No fever. Review of Systems 2 Narrative: Constitutional symptoms: Negative except as documented in HPI. Skin symptoms: Negative except as documented in HPI. Eye symptoms: Negative except as documented in HPI. ENMT symptoms: Negative except as documented in HPI. Respiratory symptoms: Negative except as documented in HPI. Cardiovascular symptoms: Negative except as documented in HPI. Gastrointestinal symptoms: Negative except as documented in HPI. Genitourinary symptoms: Negative except as documented in HPI. Musculoskeletal symptoms: Negative except as documented in HPI. Neurologic symptoms: Negative except as documented in HPI. Psychiatric symptoms: Negative except as documented in HPI. Endocrine symptoms: Negative except as documented in HPI. PFSH ED 2 PFSH: Medical History Chronic steroid use BPH (benign prostatic hyperplasia) Hepatitis B Diabetic neuropathy DM type 2 (diabetes mellitus, type 2) COPD (chronic obstructive pulmonary disease) CAD (coronary artery disease) Immunocompromised Surgical History Stented coronary artery Transplanted kidney Family History Other Diabetes Social History Smoking and tobacco/nicotine status: former use of tobacco/nicotine Alcohol intake: never Substance/Drug Use: former Lives independently: Yes Household members: spouse Marital status: Current occupational status: retired Physical Exam 2 Narrative: EXAM NARRATIVE: General: Alert, no acute distress. Skin: Warm, dry. Head: Normocephalic, atraumatic. Neck: Supple, trachea midline. Eye: Extraocular movements are intact. Ears, nose, mouth and throat: Tacky oral mucosa Cardiovascular: Regular, Normal peripheral perfusion. Respiratory: Lungs are clear to auscultation, respirations are non-labored, breath sounds are equal, Symmetrical chest wall expansion. Gastrointestinal: Soft, Nontender, Non distended, Normal bowel sounds. Musculoskeletal: Normal ROM, no deformity. Neurological: Alert and oriented, No focal neurological deficit observed. Psychiatric: Cooperative, appropriate mood & affect. Course 2 Vital Signs: Vital signs: Vital Signs Temperature 97.7 F 02/08/24 11:31 Pulse Rate 78 02/08/24 15:12 Respiratory Rate 18 02/08/24 11:31 Blood Pressure 169/99 02/08/24 15:12 Pulse Oximetry 96 02/08/24 15:12 Oxygen Delivery Me thod Nasal Cannula 02/08/24 13:46 Oxygen Flow Rate 3 02/08/24 13:46 MDM - Dizziness Medical Decision Making Medical decision making: Differential diagnosis including but not limited to and based on the above HPI, review of systems and physical exam: Checking basic lab work. Checking renal function. Patient says his potassium is high when he feels this way so of course we are checking that. Also on mag and Phos given his kidney disease. Also urinalysis. Orders placed to evaluate differential diagnosis based on the above differential, HPI and physical exam Lab Review: Laboratory results were reviewed and interpreted by myself the emergency room physician. White count is 12. Hemoglobin is 13. BUN/creatinine are 21 and 1.1. Potassium is 4.5. Urinalysis shows no signs of infection. Serial cardiac markers are negative. Urinalysis is negative. EKG: Time 1130 rate 68 normal sinus rhythm, ST abnormality versus early repolarization and inferior leads. This was present during a stress test in May 2023 and on previous EKGs., no ectopy, normal TX & QRS intervals, This was reviewed and interpreted by myself the ER physician at 1134. Repeat EKG: Time 1346 rate 85. No significant changes other than a PVC from the previous EKG. Normal sinus rhythm, No new ST-T changes, normal TX & QRS intervals, This was reviewed and interpreted by myself the ER physician at 1350. Chest x-ray: No acute process. No infiltrate. No pneumothorax. No cardiomegaly. This was reviewed and interpreted by myself the ER physician. CT head: No acute intracranial process. no intracranial hemorrhage, no evidence of infarct. no evidence of acute fracture.This was reviewed and interpreted by myself the ER physician. I reviewed the patient's medical record. Reexamination: Patient still does have some vertigo symptoms. No altered mental status. No focal motor deficits. No increased work of breathing. Lab Data 02/08/24 11:56 02/08/24 11:56 Laboratory Results WBC 12.33 10^3/uL (3.29-11.43) H 02/08/24 11:56 RBC 5.52 10^6/uL (3.85-5.65) 02/08/24 11:56 Hgb 13.20 g/dL (11.27-16.99) 02/08/24 11:56 Hct 44.8 % (37-53) 02/08/24 11:56 MCV 81.2 fl (82-101) L 02/08/24 11:56 MCH 23.9 pg (27-33) L 02/08/24 11:56 MCHC 29.5 g/dL (30-55) L 02/08/24 11:56 RDW 18.2 % (12.1-15.1) H 02/08/24 11:56 Plt Count 247 10^3/cmm (157-399) 02/08/24 11:56 MPV 10.7 fL (7.4-10.4) H 02/08/24 11:56 Neut % (Auto) 71.3 % 02/08/24 11:56 Lymph % (Auto) 14.8 % 02/08/24 11:56 [place] % (Auto) 9.0 % 02/08/24 11:56 Eos % (Auto) 3.2 % 02/08/24 11:56 Baso % (Auto) 0.6 % 02/08/24 11:56 Neut # (Auto) 8.80 10^3/uL (1.8-7.7) H 02/08/24 11:56 Lymph # (Auto) 1.8 10^3/uL (0.8-4.8) 02/08/24 11:56 [place] # (Auto) 1.1 10^3/uL (0.2-0.9) H 02/08/24 11:56 Eos # (Auto) 0.4 10^3/uL (0.0-0.8) 02/08/24 11:56 Baso # (Auto) 0.1 10^3/uL (0.0-0.1) 02/08/24 11:56 Nucleated RBC % (auto) 0 % 02/08/24 11:56 Nucleated RBCs # 0.0 /100WBC 02/08/24 11:56 Sodium 138 mmol/L (136-145) 02/08/24 11:56 Potassium 4.5 mmol/L (3.5-5.1) 02/08/24 11:56 Chloride 107 mmol/L (98-107) 02/08/24 11:56 Carbon Dioxide 22 mmol/L (22-29) 02/08/24 11:56 Anion Gap 13.5 (5-19) 02/08/24 11:56 BUN 21 mg/dL (8-23) 02/08/24 11:56 Creatinine 1.1 mg/dL (0.7-1.2) 02/08/24 11:56 GFR Calculation 66.6 mL/min (90-130) L 02/08/24 11:56 Glucose 145 mg/dL (65-115) H 02/08/24 11:56 Calculated Osmolality 292 mOsm/kg (285-295) 02/08/24 11:56 Calcium 9.4 mg/dL (8.5-10.5) 02/08/24 11:56 Phosphorus 3.3 mg/dL (2.5-4.5) 02/08/24 11:56 Magnesium 1.8 mg/dL (1.7-2.3) 02/08/24 11:56 Total Bilirubin 0.5 mg/dL (0.15-1.2) 02/08/24 11:56 AST 12 U/L (0-40) 02/08/24 11:56 ALT 11 U/L (0-41) 02/08/24 11:56 Alkaline Phosphatase 111 U/L (40-130) 02/08/24 11:56 Troponin T Baseline 15 ng/L (0-15) 02/08/24 11:56 Troponin T 120 Minute 13.31 ng/L (0-15) 02/08/24 14:10 Delta Troponin T -1.69 ABS# (0-10) L 02/08/24 14:10 Total Protein 6.8 g/dL (6.6-8.7) 02/08/24 11:56 Albumin 3.9 g/dL (3.5-5.2) 02/08/24 11:56 Globulin 2.9 g/dL (1.3-4.6) 02/08/24 11:56 Urine Color Light yellow (Yellow) 02/08/24 14:41 Urine Appearance Sl hazy (CLEAR) A 02/08/24 14:41 Urine pH 6 (5-7) 02/08/24 14:41 Ur Specific [place] 1.010 (1.005-1.030) 02/08/24 14:41 Urine Protein Trace (Negative) 02/08/24 14:41 Urine Glucose (UA) 4+ (Normal) H 02/08/24 14:41 Urine Ketones Negative (Negative) 02/08/24 14:41 Urine Blood Neg (Negative) 02/08/24 14:41 Urine Nitrate Negative (Negative) 02/08/24 14:41 Urine Bilirubin Neg (Negative) 02/08/24 14:41 Urine Urobilinogen Norm mg/dL (Negative) 02/08/24 14:41 Ur Leukocyte Esterase Negative (Negative) 02/08/24 14:41 Urine RBC 0-4 /hpf (0-2) H 02/08/24 14:41 Urine WBC None /hpf (0-5) 02/08/24 14:41 Ur Squamous Epith Cells 0-4 /hpf (0-5) H 02/08/24 14:41 Amorphous Sediment 2+ /hpf 02/08/24 14:41 Urine Bacteria Trace /hpf (NONE) 02/08/24 14:41 All radiology interpretation(s) finalized by discharge Other Data Assessment and plan: Vertigo Dehydration -IV fluids and meclizine - Discharged home - Discussed findings and plan with patient. Answered any questions. - All laboratory values were reviewed and interpreted personally by myself, the ER physician - All imaging was reviewed and interpreted personally by myself, the ER physician. - Evaluation and treatment of this problem were appropriate in the emergency setting Discharge Plan Discharge Patient Disposition: Home Clinical Impression: Vertigo, Dehydration Condition: Stable Prescriptions: New meclizine 25 mg tablet 25 mg PO QID PRN (Reason: dizziness) Qty: 20 0RF Ativan 1 mg tablet 1 mg PO BID PRN (Reason: dizziness or vertigo) Qty: 20 0RF No Action atorvastatin 80 mg tablet 80 mg PO DAILY 90 Days Qty: 90 3RF omeprazole 20 mg capsule,delayed release(DR/EC) 20 mg PO DAILY 90 Days Qty: 90 1RF prednisone 5 mg tablet 5 mg PO EVERY OTHER DAY (DME) Diabetic Shoes with 3 pairs of inserts See Rx Instructions .Route .MEDSUPPLY Qty: 1 0RF Rx Instructions: As directed by HOME (DME) Custom Molded accommodative Insoles with Diabetic Shoes See Rx Instructions .Route .MEDSUPPLY Qty: 1 0RF Rx Instructions: As directed miscellaneous medical supply Misc See Rx Instructions miscellaneous .COMPLEX Qty: 1 0RF Rx Instructions: nebulizer machine with supplies as directed; allopurinol 100 mg tablet 200 mg PO DAILY 90 Days Qty: 180 1RF amlodipine 5 mg tablet 5 mg PO DAILY 90 Days Qty: 90 1RF cyclobenzaprine 5 mg tablet 10 mg PO TID MDD 6 tabs PRN (Reason: muscle spasm) Qty: 30 1RF Humalog KwikPen Insulin 200 unit/mL (3 mL) insulin pen 26 unit SUBCUT TIDWMEAL MDD 100 30 Days Qty: 12 5RF Rx Instructions: with sliding scale ipratropium-albuterol 0.5 mg-3 mg(2.5 mg base)/3 mL solution for nebulization 3 ml inhalation Q6H PRN (Reason: wheezing) Qty: 180 1RF isosorbide mononitrate 60 mg tablet extended release 24 hr 60 mg PO DAILY 90 Days Qty: 90 1RF tamsulosin 0.4 mg capsule 0.4 mg PO DAILY 90 Days Qty: 90 1RF Anoro Ellipta 62.5-25 mcg/actuation blister with device 1 inh inhalation Q24H Qty: 60 2RF tacrolimus 1 mg capsule 1 mg PO BID entecavir 0.5 mg tablet 0.5 mg PO QAM aspirin 81 mg Tablet,Chewable 81 mg PO DAILY sulfamethoxazole-trimethoprim 400-80 mg tablet 1 tab PO EVERY OTHER DAY hydrocodone-acetaminophen 5-325 mg tablet 1 tab PO Q4H MDD 4 tabs PRN (Reason: Pain) Jardiance 10 mg tablet 10 mg PO DAILY Ozempic 0.25 mg or 0.5 mg (2 mg/3 mL) pen injector 0.5 mg SUBCUT Q7D Rx Instructions: on thursday metoprolol succinate 50 mg tablet extended release 24 hr 50 mg PO DAILY insulin detemir U-100 100 unit/mL (3 mL) insulin pen See Rx Instructions .ROUTE .COMPLEX Rx Instructions: 100 units in the AM and 40 units in the PM Nitrostat 0.4 mg Tablet, Sublingual 0.4 mg SUBLINGUAL Q5M PRN (Reason: Chest Pain) Rx Instructions: do not exceed 3 doses per episode gabapentin 600 mg tablet 600 mg PO TID guaifenesin 1,200 mg tablet extended release 12hr 1,200 mg PO Q12H PRN (Reason: Congestion) Discharge Orders: Discharge ED (Routine); Ordered 02/08/24 Ordered By: Adelia Marc Referrals: Guadalupe Wick MD [Primary Care Provider] - (You have been screened and evaluated and felt safe for discharge. Health conditions do change or evolve sometimes and as such it is important that you follow up with your Primary Doctor to be re checked, 3-5 days is a general good time frame for follow up. You are always welcome to return to the ED for re assessment if your symptoms are worsening or you have new concerns) Discharge Diet: Usual diet Discharge Activity: Increase activity as tolerated Patient Instructions: Benign Paroxysmal Positional Vertigo (ED) Coding Level of Care Code ED Perfect Bind Machine Operator for Alivia Abbott
[2024-02-08 12:02] LABS: Basophils # 0.1 10^3/uL (0.0-0.1); Basophils % 0.6 %; Eosinophils # 0.4 10^3/uL (0.0-0.8); Eosinophils % 3.2 %; Hematocrit 44.8 % (37-53); Lymphocytes # 1.8 10^3/uL (0.8-4.8); Lymphocytes % 14.8 %; Mean Corpuscular HGB Conc 29.5 g/dL (30-55); Mean Corpuscular Hemoglobin 23.9 pg (27-33); Mean Corpuscular Volume 81.2 fl (82-101); Mean Platelet Volume 10.7 fL (7.4-10.4); Monocytes # 1.1 10^3/uL (0.2-0.9); Neutrophils % 71.3 %; Nucleated Red Blood Cells % 0 %; Platelet Count 247 10^3/cmm (157-399); Red Blood Count 5.52 10^6/uL (3.85-5.65); Red Cell Distribution Width 18.2 % (12.1-15.1); White Blood Count 12.33 10^3/uL (3.29-11.43)
[2024-02-08 12:09] VITALS: BP 141/72; O2SAT 97
[2024-02-08 12:25] LABS: Alanine Aminotransferase 11 U/L (0-41); Albumin Level 3.9 g/dL (3.5-5.2); Alkaline Phosphatase 111 U/L (40-130); Anion Gap 13.5 (5-19); Aspartate Amino Transferase 12 U/L (0-40); Blood Urea Nitrogen 21 mg/dL (8-23); Calcium 9.4 mg/dL (8.5-10.5); Carbon Dioxide 22 mmol/L (22-29); Chloride 107 mmol/L (98-107); Globulin 2.9 g/dL (1.3-4.6); Glomerular Filtration Rate 66.6 mL/min (90-130); Glucose 145 mg/dL (65-115); Magnesium 1.8 mg/dL (1.7-2.3); Osmolality Calculated 292 mOsm/kg (285-295); Phosphorus 3.3 mg/dL (2.5-4.5); Potassium 4.5 mmol/L (3.5-5.1); Sodium 138 mmol/L (136-145); Total Bilirubin 0.5 mg/dL (0.15-1.2); Total Protein 6.8 g/dL (6.6-8.7); Troponin(5th) Baseline 15 ng/L (0-15)
[2024-02-08] MEDS: sodium chloride 0.9% 1,000 ML 999 ML IV (13:45)
[2024-02-08 13:46] VITALS: BP 147/66; PULSE 85; O2SAT 96
--- NOTE | 2024-02-08 13:46 | ECG_ITS ---
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 Measurements Intervals [place] Rate: 85 P: 50 CO: 163 QRS: 68 QRSD: 85 T: 70 QT: 351 QTc: 418 Interpretive Statements SINUS RHYTHM WITH OCCASIONAL VENTRICULAR PREMATURE COMPLEXES WITH OCCASIONAL SUPRAVENTRICULAR PREMATURE COMPLEXES Compared to ECG 02/08/2024 11:30:17 Ventricular premature complex(es) now present Myocardial infarct finding no longer present Electronically Signed On 02-08-2024 15:08:05 CDT by Malvin Rose M.D. [email or web address]
[2024-02-08 14:25] VITALS: BP 147/105; PULSE 80; O2SAT 97
[2024-02-08 14:47] LABS: Troponin 5 1HR 13.31 ng/L (0-15)
[2024-02-08 14:49] LABS: Troponin 5 1HR Delta -1.69 ABS# (0-10)
[2024-02-08 15:12] VITALS: BP 169/99; PULSE 78; O2SAT 96
[2024-02-08 15:19] LABS: Bilirubin Urine Neg (Negative); Blood Urine Neg (Negative); Glucose Urine UA 4+ (Normal); Ketones Urine Negative (Negative); Leukocyte Esterase Urine Negative (Negative); Nitrate Urine Negative (Negative); Protein Urine Trace (Negative); Urine Appearance SL Hazy (CLEAR); Urine Color Light yellow (Yellow); Urobilinogen Urine Norm (Negative); pH Urine 6 (5-7)
[2024-02-08 15:20] LABS: Amorphous Sediment Urine 2+ /hpf; Bacteria Urine TRACE /hpf; RBC Urine 0-4 /hpf (0-2); Squamous Epithelial Cell Urine 0-4 /hpf (0-5)
[2024-02-08 15:21] LABS: Add Urine Culture? No
--- NOTE | 2024-02-08 15:33 | PC.PHAR ---
pt states he takes care of his own medications-pt states he doesnt take topamax anymore pt had med bottle with him but doesnt take-pt brought in med bottle of lisinopril 10mg daily but states he no longer takes states not taken in 2-3 months-pt states he takes prednisone 5mg every other day rx filled for 5mg daily-notes are made in the pharmacy comments
[2024-02-08] MEDS: meclizine 25 mg tablet 50 MG PO (15:34)
--- NOTE | 2024-02-08 15:34 | CT_ITS ---
WS: [id number] CT HEAD NONCONTRAST HISTORY: Vertigo TECHNIQUE: Contiguous axial imaging performed through the brain in 2.5 mm imaging. Bone and soft tiss ue windows. Sagittal and coronal reformats reviewed. All CT scans at [facility] use at least one of these dose optimization techniques: automated exposure control; mA and/or kV adjustment per pa tient size (includes targeted exams where dose is matched to clinical indication); or iterative recon struction. DLP: 2339.78 mGy.cm COMPARISON: 03/05/2023 No acute intracranial hemorrhage, midline shift or mass effect. Mild atrophy and small vessel ischemic disease. No acute infarct. Ventricles: Normal size with no hydrocephalus. No inferior displacement of the cerebellar tonsils. Paranasal sinuses: As visualized are clear. Mastoid air cells: Well pneumatized. Calvarium and scalp: Skull is intact with no soft tissue edema or swelling. IMPRESSION: 1. No acute intracranial hemorrhage or edema. 2. Mild atrophy and mild small vessel ischemic disease. Similar to 03/05/2023.
[2024-02-08 16:51] VITALS: PULSE 79; O2SAT 97
== END 2024-02-08 16:53 | disposition home or self-care (01) ==
PROVIDERS: Emergency Provider Emergency Medicine; PCP Family Medicine
DX: R42 Dizziness and giddiness (principal); E86.0 Dehydration; Z79.85 Long-term (current) use of injectable non-insulin antidiabetic drugs; Z79.82 Long term (current) use of aspirin; Z79.4 Long term (current) use of insulin; Z86.19 Personal history of other infectious and parasitic diseases; E11.40 Type 2 diabetes mellitus with diabetic neuropathy, unspecified; J44.9 Chronic obstructive pulmonary disease, unspecified; I25.10 Atherosclerotic heart disease of native coronary artery without angina pectoris; Z94.0 Kidney transplant status; Z87.891 Personal history of nicotine dependence; E78.5 Hyperlipidemia, unspecified
CPT/HCPCS: 36415; 70450; 71045; 80053; 81001; 83735; 84100; 84484; 85025; 93005; 99285; J7030; J8597

== ENCOUNTER → 2024-04-22 10:06 | Outpatient (BNVA) | payer MEDICARE, MEDICAID, SELFPAY | PROVIDERS: PCP Family Medicine; Visit Provider Family Medicine | DX: Z94.0 Kidney transplant status (principal) | CPT/HCPCS: 80069; 80197; 81003; 82043; 85025; 87798 ==

== ENCOUNTER → 2024-06-06 08:12 | Outpatient (BNVA) | payer MEDICARE, MEDICAID, SELFPAY | PROVIDERS: PCP Family Medicine; Visit Provider Podiatrist Foot & Ankle Surgery | DX: E11.42 Type 2 diabetes mellitus with diabetic polyneuropathy (principal); M20.41 Other hammer toe(s) (acquired), right foot; M20.42 Other hammer toe(s) (acquired), left foot; M21.611 Bunion of right foot; M21.612 Bunion of left foot; L97.522 Non-pressure chronic ulcer of other part of left foot with fat layer exposed; E11.621 Type 2 diabetes mellitus with foot ulcer | CPT/HCPCS: 99213 ==

== ENCOUNTER → 2024-06-27 12:25 | Outpatient (BNVA) | payer MEDICARE, MEDICAID, SELFPAY | PROVIDERS: PCP Family Medicine; Visit Provider Podiatrist Foot & Ankle Surgery | DX: L97.522 Non-pressure chronic ulcer of other part of left foot with fat layer exposed (principal); E11.42 Type 2 diabetes mellitus with diabetic polyneuropathy; M20.41 Other hammer toe(s) (acquired), right foot; M20.42 Other hammer toe(s) (acquired), left foot; M21.611 Bunion of right foot; M21.612 Bunion of left foot; E11.621 Type 2 diabetes mellitus with foot ulcer; Z79.4 Long term (current) use of insulin | CPT/HCPCS: 99213 ==

== ENCOUNTER → 2024-08-17 09:09 | Outpatient (BNVA) | payer MEDICARE, MEDICAID, SELFPAY | PROVIDERS: PCP Family Medicine; Referring Provider Family Medicine; Visit Provider Family Medicine | DX: N18.6 End stage renal disease (principal); E11.42 Type 2 diabetes mellitus with diabetic polyneuropathy; E11.22 Type 2 diabetes mellitus with diabetic chronic kidney disease; Z94.0 Kidney transplant status | CPT/HCPCS: 80061; 80069; 80076; 80197; 81000; 82310; 82570; 83036; 83970; 84156; 84550; 85025; 87496; 87798 ==

== ENCOUNTER → 2024-08-24 15:08 | Outpatient (BNVA) | payer MEDICARE, MEDICAID, SELFPAY | PROVIDERS: PCP Family Medicine; Visit Provider Podiatrist Foot & Ankle Surgery | DX: L97.522 Non-pressure chronic ulcer of other part of left foot with fat layer exposed (principal); E11.42 Type 2 diabetes mellitus with diabetic polyneuropathy; M72.2 Plantar fascial fibromatosis; E11.621 Type 2 diabetes mellitus with foot ulcer | CPT/HCPCS: 11042; 99213 ==

== ENCOUNTER → 2024-09-05 08:20 | Outpatient (BNVA) | payer MEDICARE, MEDICAID, SELFPAY | PROVIDERS: PCP Family Medicine; Visit Provider Podiatrist Foot & Ankle Surgery | DX: L97.522 Non-pressure chronic ulcer of other part of left foot with fat layer exposed (principal); E11.42 Type 2 diabetes mellitus with diabetic polyneuropathy; E11.621 Type 2 diabetes mellitus with foot ulcer; Z79.85 Long-term (current) use of injectable non-insulin antidiabetic drugs | CPT/HCPCS: 99213 ==

== ENCOUNTER → 2024-09-07 09:44 | Outpatient (BNVA) | payer MEDICARE, MEDICAID, SELFPAY | PROVIDERS: PCP Family Medicine; Visit Provider Nurse Practitioner Family | DX: B35.1 Tinea unguium (principal); S50.912A Unspecified superficial injury of left forearm, initial encounter; X58.XXXA Exposure to other specified factors, initial encounter; I78.1 Nevus, non-neoplastic; D36.12 Benign neoplasm of peripheral nerves and autonomic nervous system, upper limb, including shoulder | CPT/HCPCS: 17000; 99214 ==

== ENCOUNTER → 2024-09-19 07:57 | Outpatient (BNVA) | payer MEDICARE, MEDICAID, SELFPAY | PROVIDERS: PCP Family Medicine; Visit Provider Podiatrist Foot & Ankle Surgery | DX: L97.522 Non-pressure chronic ulcer of other part of left foot with fat layer exposed (principal); E11.42 Type 2 diabetes mellitus with diabetic polyneuropathy; E11.621 Type 2 diabetes mellitus with foot ulcer | CPT/HCPCS: 11042 ==

== ENCOUNTER 2024-10-13 11:26 | Emergency (ER) | payer MEDICARE, MEDICAID, SELFPAY ==
[2024-10-13 11:49] VITALS: BP 107/71; PULSE 91; RESP 18; TEMP 36.4; O2SAT 93; BMI 28.1
--- NOTE | 2024-10-13 12:16 | ECG_ITS ---
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 Measurements Intervals [place] Rate: 81 P: 60 NC: 143 QRS: 73 QRSD: 99 T: 66 QT: 378 QTc: 441 Interpretive Statements SINUS RHYTHM WITH FREQUENT VENTRICULAR PREMATURE COMPLEXES PROBABLE INFERIOR MYOCARDIAL INFARCTION , PROBABLY OLD [35 ms Q WAVE IN II/aVF] Compared to ECG 02/08/2024 13:46:47 Myocardial infarct finding now present Electronically Signed On 10-14-2024 18:34:14 MUSICIAN INSTRUMENTAL by Davis Brady M.D. [email or web address]
--- NOTE | 2024-10-13 12:17 | ED_ITS ---
HPI - Dizziness 2 General: Chief Complaint: Dizziness Stated Complaint: dizzy, unstable Time Seen by Provider: 10/13/24 11:56 History of Present Illness: HPI Narrative: 69-year-old male is presenting with dizz iness, he states he is asymptomatic if keeping his head still but whenever he turns his head he feels dizzy and feels some nausea as well. Feels like he is drunk when he is walking. He denies any headache no fevers or chills no vomiting or diarrhea. Denies any chest pain shortness of breath or abdominal pain. He feels like it is an inner ear issue but this denies any hearing loss or tinnitus. Has had this happen to him in the past. He was told is dehydration or low potassium. He reports that he has only been drinking [employer] for the past several days. Associated symptoms: Denies chest pain, chills, headache(s), palpitations or vomiting Associated neuro symptoms: Deny numbness in extremities Related Data Home Medications Medication Instructions Recorded Confirmed aspirin 81 mg chewable tablet 81 mg PO DAILY 09/29/21 10/13/24 entecavir 0.5 mg tablet 0.5 mg PO QAM 09/29/21 10/13/24 tacrolimus 1 mg capsule, 1 mg PO BID 09/29/21 10/13/24 immediate-release prednisone 5 mg tablet 5 mg PO EVERY OTHER DAY 04/27/23 10/13/24 empagliflozin 10 mg tablet 10 mg PO DAILY 02/08/24 10/13/24 (Jardiance) hydrocodone 5 mg-acetaminophen 325 1 tab PO Q4H PRN Pain 02/08/24 10/13/24 mg tablet nitroglycerin 0.4 mg sublingual 0.4 mg sublingual Q5M PRN Chest 02/08/24 10/13/24 tablet (Nitrostat) Pain semaglutide 0.25 mg or 0.5 mg (2 1 mg SUBCUT Q7D 02/08/24 10/13/24 mg/3 mL) subcutaneous pen injector (Ozempic) allopurinol 100 mg tablet 200 mg PO DAILY 10/13/24 10/13/24 atorvastatin 80 mg tablet 80 mg PO QPM 10/13/24 10/13/24 ciclopirox 8 % topical solution See Rx Instructions .Route 10/13/24 10/13/24 .COMPLEX PRN irritation gabapentin 600 mg tablet 600 mg PO TID 10/13/24 10/13/24 insulin detemir U-100 100 unit/mL See Rx Instructions .Route .COMPLEX 10/13/24 10/13/24 (3 mL) subcutaneous pen ipratropium 0.5 mg-albuterol 3 mg 3 ml inhalation Q6H PRN Wheezing 10/13/24 10/13/24 (2.5 mg base)/3 mL nebulization soln metoprolol succinate 50 mg 50 mg PO DAILY 10/13/24 10/13/24 tablet,extended release 24 hr mupirocin 2 % topical ointment See Rx Instructions .Route 10/13/24 10/13/24 .COMPLEX PRN Skin Irritation omeprazole 20 mg capsule,delayed 20 mg PO DAILY 10/13/24 10/13/24 release umeclidinium 62.5 mcg-vilanterol 1 inh inhalation .Q24H 10/13/24 10/13/24 25 mcg/actuation powdr for inhalation (Anoro Ellipta) Previous Rx's Medication Instructions Recorded Diabetic Shoes with 3 pairs of #1 ea 09/02/23 inserts pen needle, diabetic 31 gauge x #200 ea 05/12/24/16 (BD Ultra-Fine Mini Pen Needle) Custom Molded accommodative #1 ea 06/06/24 Insoles with Diabetic Shoes amlodipine 5 mg tablet 5 mg PO DAILY 90 days #90 tabs 08/22/24 isosorbide mononitrate 60 mg 60 mg PO DAILY 90 days #90 tabs 08/22/24 tablet,extended release 24 hr tamsulosin 0.4 mg capsule 0.4 mg PO DAILY 90 days #90 caps 08/22/24 amoxicillin 500 mg tablet 500 mg PO BID #20 tabs 10/07/24 meclizine 25 mg tablet 25 mg PO TID PRN dizziness #30 tabs 10/13/24 Allergies Allergy/AdvReac Type Severity Reaction Status Date / Time No Known Allergies Allergy Verified 10/13/24 11:52 Review of Systems 2 Const: Denies: fever(s) or chills Eyes: Denies: change in vision or blurry vision ENMT: Denies: throat pain Card: Denies: chest pain, palpitations or irregular heart rhythm Resp: Denies: dyspnea GI: Denies: abdominal pain, vomiting or diarrhea : Denies: flank pain, difficulty urinating, dysuria or urinary frequency Musc: Denies: neck pain or back pain Skin/Breast: Denies: rash or pruritus Neuro: Reports: dizziness and vertigo; Denies: headache(s), numbness in extremities or weakness in extremities PFSH ED 2 PFSH: Medical History Chronic steroid use BPH (benign prostatic hyperplasia) Hepatitis B Diabetic neuropathy DM type 2 (diabetes mellitus, type 2) COPD (chronic obstructive pulmonary disease) CAD (coronary artery disease) Immunocompromised Surgical History Stented coronary artery Transplanted kidney Family History Other Diabetes Social History Smoking and tobacco/nicotine status: former use of tobacco/nicotine Alcohol intake: never Substance/Drug Use: former Lives independently: Yes Household members: other Details: ex- Marital status: Current occupational status: retired Physical Exam 2 Narrative: EXAM NARRATIVE: Const: no acute distress, cooperative, well appearing HENMT: normocephalic, atraumatic, normal facial exam, posterior oropharynx normal w/ no tonsillar erythema or exudates Eye: Equal, round and reactive pupils present and EOMs intact bilaterally Neck/C-Spine: trachea midline, no stridor, no midline c spine tenderness , no paraspinal neck muscle tenderness Chest: no rib or chest wall tenderness Resp: normal respiratory effort, No retractions, No use of accessory muscles and clear to auscultation bilaterally Cardio: COMMON NORMALS: regular rate and regular rhythm RATE: regular rate RHYTHM: regular rhythm GI: Normal to inspection, no tenderness, nondistended, normoactive bowel sounds present Extremity: COMMON NORMALS: no pedal edema Neuro: GCS 15, AO x 4, normal speech, CN intact, normal motor exam, normal sensory exam, no ataxia, specifically there is no nystagmus, [id number] is normal, I ambulated the patient he walks steadily. He does feel dizziness when turning his head but this resolved rapidly when keeping his head still. Psych: cooperative, appropriate mood and affect Skin: no rashes or lesions Course 2 Vital Signs: Vital signs: Vital Signs Temperature 97.6 F 10/13/24 11:49 Pulse Rate 74 10/13/24 13:58 Respiratory Rate 16 10/13/24 13:14 Blood Pressure 136/89 10/13/24 13:58 Pulse Oximetry 91 10/13/24 13:58 Oxygen Delivery Me thod Room Air 10/13/24 13:58 MDM - Dizziness Medical Decision Making Labs remarkable for mild hyperglycemia otherwise no significant abnormalities including normal electrolytes normal CBC. Patient was reassessed, he feels markedly improved after fluids and medications he is ambulated with a steady gait. Patient is presenting with nonspecific dizziness still does not appear to require inpatient hospitalization I do not suspect central process such as CVA, this is a recurrent chronic issue for the patient may be combination of hypovolemia given his hyperglycemia as well as peripheral vertigo as his symptoms are positional and episodic. Discussed results with the patient, his vital signs are stable and he is stable for discharge and outpatient follow-up with PCP. Lab Data 10/13/24 12:34 10/13/24 12:34 Laboratory Results WBC 8.45 10^3/uL (3.29-11.43) 10/13/24 12:34 RBC 5.42 10^6/uL (3.85-5.65) 10/13/24 12:34 Hgb 13.50 g/dL (11.27-16.99) 10/13/24 12:34 Hct 45.9 % (37-53) 10/13/24 12:34 MCV 84.7 fl (82-101) 10/13/24 12:34 MCH 24.9 pg (27-33) L 10/13/24 12:34 MCHC 29.4 g/dL (30-55) L 10/13/24 12:34 RDW 19.2 % (12.1-15.1) H 10/13/24 12:34 Plt Count 206 10^3/cmm (157-399) 10/13/24 12:34 MPV 11.2 fL (7.4-10.4) H 10/13/24 12:34 Neut % (Auto) 64.5 % 10/13/24 12:34 Lymph % (Auto) 21.7 % 10/13/24 12:34 Greene % (Auto) 7.7 % 10/13/24 12:34 Eos % (Auto) 4.4 % 10/13/24 12:34 Baso % (Auto) 0.6 % 10/13/24 12:34 Neut # (Auto) 5.46 10^3/uL (1.8-7.7) 10/13/24 12:34 Lymph # (Auto) 1.8 10^3/uL (0.8-4.8) 10/13/24 12:34 Greene # (Auto) 0.7 10^3/uL (0.2-0.9) 10/13/24 12:34 Eos # (Auto) 0.4 10^3/uL (0.0-0.8) 10/13/24 12:34 Baso # (Auto) 0.1 10^3/uL (0.0-0.1) 10/13/24 12:34 Nucleated RBC % (auto) 0 % 10/13/24 12:34 Nucleated RBCs # 0.0 /100WBC 10/13/24 12:34 Sodium 136 mmol/L (136-145) 10/13/24 12:34 Potassium 4.3 mmol/L (3.5-5.1) 10/13/24 12:34 Chloride 102 mmol/L (98-107) 10/13/24 12:34 Carbon Dioxide 23 mmol/L (22-29) 10/13/24 12:34 Anion Gap 15.3 (5-19) 10/13/24 12:34 BUN 16 mg/dL (8-23) 10/13/24 12:34 Creatinine 1.2 mg/dL (0.7-1.2) 10/13/24 12:34 GFR Calculation 60.0 mL/min (90-130) L 10/13/24 12:34 Glucose 231 mg/dL (65-115) H 10/13/24 12:34 Calculated Osmolality 291 mOsm/kg (285-295) 10/13/24 12:34 Calcium 9.2 mg/dL (8.5-10.5) 10/13/24 12:34 Total Bilirubin 0.6 mg/dL (0.15-1.2) 10/13/24 12:34 AST 14 U/L (0-40) 10/13/24 12:34 ALT 8 U/L (0-41) 10/13/24 12:34 Alkaline Phosphatase 119 U/L (40-130) 10/13/24 12:34 Total Protein 6.9 g/dL (6.6-8.7) 10/13/24 12:34 Albumin 3.6 g/dL (3.5-5.2) 10/13/24 12:34 Globulin 3.3 g/dL (1.3-4.6) 10/13/24 12:34 All radiology interpretation(s) finalized by discharge Discharge Plan Discharge Patient Disposition: Home Clinical Impression: Dizziness Condition: Stable Prescriptions: New meclizine 25 mg tablet 25 mg PO TID PRN (Reason: dizziness) Qty: 30 0RF No Action (DME) Custom Molded accommodative Insoles with Diabetic Shoes See Rx Instructions .Route .MEDSUPPLY Qty: 1 0RF Rx Instructions: As directed amlodipine 5 mg tablet 5 mg PO DAILY 90 Days Qty: 90 2RF isosorbide mononitrate 60 mg tablet extended release 24 hr 60 mg PO DAILY 90 Days Qty: 90 2RF tamsulosin 0.4 mg capsule 0.4 mg PO DAILY 90 Days Qty: 90 2RF prednisone 5 mg tablet 5 mg PO EVERY OTHER DAY (DME) Diabetic Shoes with 3 pairs of inserts See Rx Instructions .Route .MEDSUPPLY Qty: 1 0RF Rx Instructions: As directed by HOME amoxicillin 500 mg tablet 500 mg PO BID Qty: 20 0RF (DME) pen needle, diabetic [BD Ultra-Fine Mini Pen Needle] 31 gauge x 3/16 needle See Rx Instructions .ROUTE .COMPLEX Qty: 200 3RF Dose Instruction: USE ONE NEEDLE TWICE DAILY WITH LEVEMIR Rx Instructions: USE ONE NEEDLE TWICE DAILY WITH LEVEMIR tacrolimus 1 mg capsule 1 mg PO BID entecavir 0.5 mg tablet 0.5 mg PO QAM aspirin 81 mg Tablet,Chewable 81 mg PO DAILY hydrocodone-acetaminophen 5-325 mg tablet 1 tab PO Q4H MDD 4 tabs PRN (Reason: Pain) Jardiance 10 mg tablet 10 mg PO DAILY Ozempic 0.25 mg or 0.5 mg (2 mg/3 mL) pen injector 1 mg SUBCUT Q7D Rx Instructions: on Thursday nitroglycerin [Nitrostat] 0.4 mg Tablet, Sublingual 0.4 mg SUBLINGUAL Q5M PRN (Reason: Chest Pain) Rx Instructions: do not exceed 3 doses per episode ciclopirox 8 % solution See Rx Instructions .ROUTE .COMPLEX PRN (Reason: irritation) Rx Instructions: APPLY ENOUGH TO COVER AFFECTED TOENAILS WIPE CLEAN WITH ALCOHOL EVERY 7 DAYS AFTER APPLICATION ALLOW TO REMAIN ON NAIL AT LEAST 8 HOURS BEFORE SHOWERING DAILY. mupirocin 2 % ointment See Rx Instructions .ROUTE .COMPLEX PRN (Reason: Skin Irritation) Rx Instructions: APPLY TWICE DAILY TO OPEN AREAS ON ARMS AND NECK UNTIL HEALED. Levemir FlexPen 100 unit/mL (3 mL) insulin pen See Rx Instructions .ROUTE .COMPLEX Rx Instructions: 140 UNIT (1.4 ML) SUBCUTANEOUSLY DAILY, MAX DAILY DOSE: 140 UNITS; 100 IN AM, 40 IN PM. atorvastatin 80 mg tablet 80 mg PO QPM gabapentin 600 mg tablet 600 mg PO TID ipratropium-albuterol 0.5 mg-3 mg(2.5 mg base)/3 mL solution for nebulization 3 ml inhalation Q6H PRN (Reason: Wheezing) metoprolol succinate 50 mg tablet extended release 24 hr 50 mg PO DAILY allopurinol 100 mg tablet 200 mg PO DAILY omeprazole 20 mg capsule,delayed release(DR/EC) 20 mg PO DAILY Anoro Ellipta 62.5-25 mcg/actuation blister with device 1 inh inhalation .Q24H Discharge Orders: Discharge ED (Routine); Ordered 10/13/24 Ordered By: Gianluca Rossi Referrals: Guadalupe Wick MD [Primary Care Provider] - Patient Instructions: Opioid Safety, Pain Management Coding Level of Care Code ED Extract Puller for Alivia Abbott
[2024-10-13] MEDS: metoclopramide 5 mg/mL SDV 2 mL 10 MG IVP (12:30)
[2024-10-13] MEDS: meclizine 25 mg tablet PO (12:30)
[2024-10-13] MEDS: sodium chloride 0.9% 1,000 ML 999 ML IV (12:31)
[2024-10-13 12:42] VITALS: BP 121/87; PULSE 84; O2SAT 93
[2024-10-13 12:51] LABS: Basophils # 0.1 10^3/uL (0.0-0.1); Basophils % 0.6 %; Eosinophils # 0.4 10^3/uL (0.0-0.8); Eosinophils % 4.4 %; Hematocrit 45.9 % (37-53); Lymphocytes # 1.8 10^3/uL (0.8-4.8); Lymphocytes % 21.7 %; Mean Corpuscular HGB Conc 29.4 g/dL (30-55); Mean Corpuscular Hemoglobin 24.9 pg (27-33); Mean Corpuscular Volume 84.7 fl (82-101); Mean Platelet Volume 11.2 fL (7.4-10.4); Monocytes # 0.7 10^3/uL (0.2-0.9); Monocytes % 7.7 %; Neutrophils # 5.46 10^3/uL (1.8-7.7); Neutrophils % 64.5 %; Nucleated Red Blood Cells % 0 %; Platelet Count 206 10^3/cmm (157-399); Red Blood Count 5.42 10^6/uL (3.85-5.65); Red Cell Distribution Width 19.2 % (12.1-15.1); White Blood Count 8.45 10^3/uL (3.29-11.43)
[2024-10-13 13:00] LABS: Alanine Aminotransferase 8 U/L (0-41); Albumin Level 3.6 g/dL (3.5-5.2); Alkaline Phosphatase 119 U/L (40-130); Anion Gap 15.3 (5-19); Aspartate Amino Transferase 14 U/L (0-40); Blood Urea Nitrogen 16 mg/dL (8-23); Calcium 9.2 mg/dL (8.5-10.5); Carbon Dioxide 23 mmol/L (22-29); Chloride 102 mmol/L (98-107); Creatinine Clr Calc Pharmacy 61.3082; Globulin 3.3 g/dL (1.3-4.6); Glucose 231 mg/dL (65-115); Osmolality Calculated 291 mOsm/kg (285-295); Potassium 4.3 mmol/L (3.5-5.1); Sodium 136 mmol/L (136-145); Total Bilirubin 0.6 mg/dL (0.15-1.2); Total Protein 6.9 g/dL (6.6-8.7)
[2024-10-13 13:14] VITALS: BP 112/81; PULSE 81; RESP 16; O2SAT 92
[2024-10-13 13:58] VITALS: BP 136/89; PULSE 74; O2SAT 91
[2024-10-13 14:39] VITALS: BP 136/99; PULSE 83; O2SAT 97
== END 2024-10-13 14:40 | disposition home or self-care (01) ==
PROVIDERS: Emergency Provider Emergency Medicine; PCP Family Medicine
DX: R42 Dizziness and giddiness (principal); Z79.82 Long term (current) use of aspirin; Z87.891 Personal history of nicotine dependence; J44.9 Chronic obstructive pulmonary disease, unspecified; I25.10 Atherosclerotic heart disease of native coronary artery without angina pectoris; E11.40 Type 2 diabetes mellitus with diabetic neuropathy, unspecified
CPT/HCPCS: 80053; 85025; 93005; 96374; 99284; J2765; J7030; J8597

== ENCOUNTER → 2024-10-20 07:53 | Outpatient (BNVA) | payer MEDICARE, MEDICAID, SELFPAY | PROVIDERS: PCP Family Medicine; Visit Provider Podiatrist Foot & Ankle Surgery | DX: L97.522 Non-pressure chronic ulcer of other part of left foot with fat layer exposed (principal); E11.42 Type 2 diabetes mellitus with diabetic polyneuropathy; M20.41 Other hammer toe(s) (acquired), right foot; M20.42 Other hammer toe(s) (acquired), left foot; M21.611 Bunion of right foot; M21.612 Bunion of left foot; E11.621 Type 2 diabetes mellitus with foot ulcer; Z79.4 Long term (current) use of insulin | CPT/HCPCS: 99213 ==

== ENCOUNTER → 2024-10-31 09:04 | Outpatient (BNVA) | payer MEDICARE, MEDICAID, SELFPAY | PROVIDERS: PCP Family Medicine; Referring Provider Family Medicine; Visit Provider Family Medicine | DX: E11.22 Type 2 diabetes mellitus with diabetic chronic kidney disease (principal); N18.9 Chronic kidney disease, unspecified; Z94.0 Kidney transplant status; Z79.4 Long term (current) use of insulin | CPT/HCPCS: 80053; 80069; 80197; 81000; 82310; 82570; 83036; 83735; 83970; 84156; 84550; 85025; 87799 ==

== ENCOUNTER → 2024-11-16 08:00 | Outpatient (BNVA) | payer MEDICARE, MEDICAID, SELFPAY | PROVIDERS: PCP Family Medicine; Visit Provider Podiatrist Foot & Ankle Surgery | DX: E11.42 Type 2 diabetes mellitus with diabetic polyneuropathy (principal); M20.41 Other hammer toe(s) (acquired), right foot; M20.42 Other hammer toe(s) (acquired), left foot; M21.611 Bunion of right foot; M21.612 Bunion of left foot; Z79.4 Long term (current) use of insulin | CPT/HCPCS: 99213 ==

== ENCOUNTER → 2025-02-06 10:24 | Outpatient (BNVA) | payer MEDICARE, MEDICAID, SELFPAY | PROVIDERS: PCP Family Medicine; Visit Provider Specialist | DX: M75.02 Adhesive capsulitis of left shoulder (principal); M25.812 Other specified joint disorders, left shoulder; M75.102 Unspecified rotator cuff tear or rupture of left shoulder, not specified as traumatic; M12.812 Other specific arthropathies, not elsewhere classified, left shoulder; M75.81 Other shoulder lesions, right shoulder | CPT/HCPCS: 20610; 73030; 99214; J1100; J2795; J3301; J9999 ==

== ENCOUNTER → 2025-02-15 14:47 | Outpatient (BNVA) | payer MEDICARE, MEDICAID, SELFPAY | PROVIDERS: PCP Family Medicine; Visit Provider Podiatrist Foot & Ankle Surgery | DX: E11.621 Type 2 diabetes mellitus with foot ulcer (principal); L97.522 Non-pressure chronic ulcer of other part of left foot with fat layer exposed; E11.42 Type 2 diabetes mellitus with diabetic polyneuropathy; M20.41 Other hammer toe(s) (acquired), right foot; M20.42 Other hammer toe(s) (acquired), left foot; M21.611 Bunion of right foot; M21.612 Bunion of left foot; Z79.4 Long term (current) use of insulin | CPT/HCPCS: 73630 ==

== ENCOUNTER 2025-02-15 15:58 | Outpatient (CLI) | payer MEDICARE, MEDICAID, SELFPAY | END 2025-02-15 15:59 | disposition home or self-care (01) | LOC: SPT 15:59 | PROVIDERS: PCP Family Medicine; Visit Provider Podiatrist Foot & Ankle Surgery | DX: Z46.89 Encounter for fitting and adjustment of other specified devices (principal); L97.522 Non-pressure chronic ulcer of other part of left foot with fat layer exposed | CPT/HCPCS: 97760; L4361 ==

== ENCOUNTER → 2025-02-24 07:53 | Outpatient (BNVA) | payer MEDICARE, MEDICAID, SELFPAY | PROVIDERS: PCP Family Medicine; Visit Provider Thoracic Surgery (Cardiothoracic Vascular Surgery) | DX: E11.52 Type 2 diabetes mellitus with diabetic peripheral angiopathy with gangrene (principal); E11.621 Type 2 diabetes mellitus with foot ulcer; L97.422 Non-pressure chronic ulcer of left heel and midfoot with fat layer exposed | CPT/HCPCS: 11042 ==

== ENCOUNTER → 2025-03-14 15:20 | Outpatient (BNVA) | payer MEDICARE, MEDICAID, SELFPAY | PROVIDERS: PCP Family Medicine; Visit Provider Thoracic Surgery (Cardiothoracic Vascular Surgery) | DX: E11.52 Type 2 diabetes mellitus with diabetic peripheral angiopathy with gangrene (principal); E11.621 Type 2 diabetes mellitus with foot ulcer; L97.422 Non-pressure chronic ulcer of left heel and midfoot with fat layer exposed | CPT/HCPCS: 11042 ==

== ENCOUNTER → 2025-04-03 14:31 | Outpatient (BNVA) | payer MEDICARE, MEDICAID, SELFPAY | PROVIDERS: PCP Family Medicine; Visit Provider Thoracic Surgery (Cardiothoracic Vascular Surgery) | DX: E11.52 Type 2 diabetes mellitus with diabetic peripheral angiopathy with gangrene (principal); E11.621 Type 2 diabetes mellitus with foot ulcer; L97.421 Non-pressure chronic ulcer of left heel and midfoot limited to breakdown of skin | CPT/HCPCS: 97597; A6021 ==

== ENCOUNTER → 2025-04-17 08:33 | Outpatient (BNVA) | payer MEDICARE, MEDICAID, SELFPAY | PROVIDERS: PCP Family Medicine; Visit Provider Thoracic Surgery (Cardiothoracic Vascular Surgery) | DX: E11.52 Type 2 diabetes mellitus with diabetic peripheral angiopathy with gangrene (principal); E11.621 Type 2 diabetes mellitus with foot ulcer; L97.421 Non-pressure chronic ulcer of left heel and midfoot limited to breakdown of skin | CPT/HCPCS: 97597; A6021 ==

== ENCOUNTER → 2025-04-28 10:24 | Outpatient (BNVA) | payer MEDICARE, MEDICAID, SELFPAY | PROVIDERS: PCP Family Medicine; Visit Provider Thoracic Surgery (Cardiothoracic Vascular Surgery) | DX: E11.52 Type 2 diabetes mellitus with diabetic peripheral angiopathy with gangrene (principal); E11.621 Type 2 diabetes mellitus with foot ulcer; L97.411 Non-pressure chronic ulcer of right heel and midfoot limited to breakdown of skin | CPT/HCPCS: 97597; A6021 ==

== ENCOUNTER → 2025-05-05 08:45 | Outpatient (BNVA) | payer MEDICARE, MEDICAID, SELFPAY | PROVIDERS: PCP Family Medicine; Visit Provider Thoracic Surgery (Cardiothoracic Vascular Surgery) | DX: E11.52 Type 2 diabetes mellitus with diabetic peripheral angiopathy with gangrene (principal); E11.621 Type 2 diabetes mellitus with foot ulcer; L97.421 Non-pressure chronic ulcer of left heel and midfoot limited to breakdown of skin | CPT/HCPCS: 97597 ==

== ENCOUNTER → 2025-05-19 09:40 | Outpatient (BNVA) | payer MEDICARE, MEDICAID, SELFPAY | PROVIDERS: PCP Family Medicine; Visit Provider Thoracic Surgery (Cardiothoracic Vascular Surgery) | DX: Z09 Encounter for follow-up examination after completed treatment for conditions other than malignant neoplasm (principal) | CPT/HCPCS: 99213 ==